=== PATIENT | male | born 1975 | race Caucasian/White ===

== ENCOUNTER 2016-10-05 09:27 | Inpatient (IN) ==
--- NOTE | 2016-10-05 09:35 | Emergency Department Note ---
Disposition Clinical Impression: Sepsis, Diabetic infection of right foot, Hypokalemia, Anemia Disposition: Admitted As Inpatient Referrals: Yesenia Daniel CNP [Primary Care Provider] - Forms: ED Satisfaction Letter General Adult HPI - General Stated complaint: Hyperglycemia Time Seen by Provider: 10/05/16 09:31 - History of Present Illness HPI Narrative: 40-year-old male reports to the emergency department concerned with right foot swelling and redness. He states he is diabetic, type I. He got up this morning he states his blood pressure was 61. Did not feel woozy or dizzy or pass out. The patient denies any chest pain shortness of breath or abdominal pain no vomiting or diarrhea. No back pain urinary problems cough runny nose or pain sore throat or trauma. He has had no trouble moving the arms or legs. The patient reports his right foot is significantly swollen with defects on his second toe. He is status post right great toe amputation a few years ago. There is no history of direct trauma. No rapid bleeding. He does not know exactly when his last tetanus shot was. The patient is concerned about his right foot. He reports significant changes since yesterday. - Related Data Home Medications Medication Instructions Recorded Confirmed Cyclobenzaprine [Flexeril] 10 mg PO TID PRN 10/05/16 10/05/16 Insulin ASPART [NovoLOG] 0 units SQ AD PRN 10/05/16 10/05/16 Insulin Glargine [Lantus] 0 units SQ DAILY PRN 10/05/16 10/05/16 RX: Aspirin 81 mg PO DAILY 10/05/16 10/05/16 Allergies Allergy/AdvReac Type Severity Reaction Status Date / Time No Known Allergies Allergy Verified 10/05/16 10:06 All systems ED: reviewed and negative except as stated. Past Medical History - Past Medical History Medical history: Reports: diabetes, hepatitis Physical Exam - General Limitations: no limitations General appearance: alert, in no apparent distress - Eye Eye exam: Present: other (Chronic right eye defect.). Absent: normal appearance , scleral icterus, conjunctival injection, miosis, mydriasis, periorbital swelling - ENT ENT exam: normal exam, normal oropharynx, mucous membranes moist, TM's normal bilaterally, normal external ear exam - Neck Neck exam: Present: normal inspection, full ROM, trachea midline. Absent: meningismus - Chest Chest inspection: Present: symmetric chest wall rise. Absent: tenderness - Respiratory Respiratory exam: Present: normal lung sounds bilaterally. Absent: respiratory distress, wheezes, stridor, accessory muscle use, prolonged expiratory phase - Cardiovascular Cardiovascular exam: Present: regular rate, normal rhythm, normal heart sounds - Abdominal Exam Abdominal exam: Present: soft, Non-Tender, normal bowel sounds. Absent: tenderness, distention, guarding, rebound, rigidity - Extremities Exam Extremities exam: Present: full ROM, normal capillary refill, other (All 4 extremities are warm and well perfused and supple. The upper extremities and left lower extremity show no acute defects. Right lower extremity so significant edema about the right foot with what appears to be a remote right great toe amputation. The second toe is macerated on the dorsal surface. Erythema pain and swelling are noted. Dorsalis pedis pulses palpable. Good range of motion at the knee and hip on the right. All 4 extremities show no evidence of acute neurovascular or neuromuscular compromise.). Absent: joint swelling, calf tenderness - Back Exam Back exam: Present: full ROM. Absent: tenderness, CVA tenderness (R), CVA tenderness (L), vertebral tenderness - Neurological Exam Neurological exam: Present: alert, oriented X3, CN II-XII intact. Absent: motor sensory deficit - Psychiatric Psychiatric exam: Present: normal affect, normal mood - Skin Skin exam: Present: warm, dry, intact, normal color. Absent: rash, cyanosis, diaphoresis, erythema, pallor, mottled Course Vital Signs Temperature 102.0 F H 10/05/16 09:34 Pulse Rate 108 10/05/16 09:34 Respiratory Rate 16 10/05/16 09:34 Blood Pressure 138/76 10/05/16 09:34 O2 Sat by Pulse Oximetry 97 10/05/16 09:34 Temperature 102.0 F H 10/05/16 09:34 Pulse Rate 82 10/05/16 11:22 Respiratory Rate 16 10/05/16 11:22 Blood Pressure 115/69 10/05/16 11:22 O2 Sat by Pulse Oximetry 98 10/05/16 11:22 Oxygen Delivery Oxygen Delivery Room Air Medical Decision Making - MDM Narrative Medical decision making narrative: The patient has elevated lactate, he is tachycardic and tachypnea, he appears to have diabetic cellulitis the right foot without evidence of osteomyelitis based on plain radiographic studies. He meets sepsis criteria. Vancomycin and Zosyn were ordered. Blood cultures were sent. IV fluid was ordered. The patient was given Percocet and a tetanus booster. Based on the patient's apparent sepsis, I thought it would be appropriate to admit the patient to the hospital, I consulted the hospitalist who is acccepted the patient to their care. The patient is currently stable pending admission. - Lab Data Result diagrams: 10/05/16 10:00 10/05/16 10:00 Lab Results 10/05/16 10/05/16 10/05/16 Range/Units 09:38 10:00 10:00 WBC 11.1 (4.3-11.1) K/mcL RBC 4.00 L (4.19-5.50) M/mcL Hgb 12.2 L (12.9-16.9) g/dL Hct 36.0 L (37.5-50.1) % MCV 90.0 (83.0-100.0) fL MCH 30.5 (28.0-33.3) pg MCHC 33.9 (31.6-35.5) g/dL RDW 12.0 (11.5-14.5) % Plt Count 258 (140-400) K/mcL MPV 9.6 (9.4-12.4) fL Immature Gran % 0.5 (0-4) % Seg Neutrophils % 70.9 % Lymphocytes % 18.9 % Monocytes % 7.7 % Eosinophils % 1.6 % Basophils % 0.4 % Neutrophils # 7.8 (1.6-8.9) K/mcL Lymphocytes # 2.1 (0.6-4.6) K/mcL Monocytes # 0.9 (0.0-1.3) K/mcL Eosinophils # 0.2 (0.0-0.6) K/mcL Basophils # 0.0 (0.0-0.2) K/mcL PT 11.1 (9.4-12.1) Seconds INR 1.0 APTT 28.7 (26.0-36.0) Seconds Sodium (136-145) mEq/L Potassium (3.5-4.5) mEq/L Chloride (98-109) mEq/L Carbon Dioxide (19-29) mEq/L BUN (8-26) mg/dL Creatinine (0.72-1.25) mg/dL Est GFR ( Amer) (> 60) Est GFR (Non-Af Amer) (> 60) BUN/Creatinine Ratio (6-26) Glucose (70-99) mg/dL POC Glucose 161 H (58-89) Calculated Osmolality (280-300) Lactic Acid (0.5-2.2) mmol/L Calcium (8.6-10.8) mg/dL Total Bilirubin (0.2-1.2) mg/dL Direct Bilirubin (0.0-0.5) mg/dL Indirect Bilirubin (0.0-1.2) mg/dL AST (5-34) Units/L ALT (0-55) Units/L Alkaline Phosphatase (38-126) Units/L C-Reactive Protein (Less than 5) mg/L Serum Total Protein (6.0-8.3) g/dL Albumin (3.5-5.0) g/dL Globulin (2.4-3.5) g/dL Albumin/Globulin Ratio (1.1-2.2) Beta-Hydroxybutyric Acd (0.02-0.27) mmol/L 10/05/16 10/05/16 Range/Units 10:00 10:00 WBC (4.3-11.1) K/mcL RBC (4.19-5.50) M/mcL Hgb (12.9-16.9) g/dL Hct (37.5-50.1) % MCV (83.0-100.0) fL MCH (28.0-33.3) pg MCHC (31.6-35.5) g/dL RDW (11.5-14.5) % Plt Count (140-400) K/mcL MPV (9.4-12.4) fL Immature Gran % (0-4) % Seg Neutrophils % % Lymphocytes % % Monocytes % % Eosinophils % % Basophils % % Neutrophils # (1.6-8.9) K/mcL Lymphocytes # (0.6-4.6) K/mcL Monocytes # (0.0-1.3) K/mcL Eosinophils # (0.0-0.6) K/mcL Basophils # (0.0-0.2) K/mcL PT (9.4-12.1) Seconds INR APTT (26.0-36.0) Seconds Sodium 135 L (136-145) mEq/L Potassium 3.3 L (3.5-4.5) mEq/L Chloride 101 (98-109) mEq/L Carbon Dioxide 25 (19-29) mEq/L BUN 8 (8-26) mg/dL Creatinine 0.89 (0.72-1.25) mg/dL Est GFR ( Amer) > 60 (> 60) Est GFR (Non-Af Amer) > 60 (> 60) BUN/Creatinine Ratio 9 (6-26) Glucose 158 H (70-99) mg/dL POC Glucose (58-89) Calculated Osmolality 282 (280-300) Lactic Acid 2.5 H (0.5-2.2) mmol/L Calcium 8.9 (8.6-10.8) mg/dL Total Bilirubin 0.2 (0.2-1.2) mg/dL Direct Bilirubin 0.1 (0.0-0.5) mg/dL Indirect Bilirubin 0.1 (0.0-1.2) mg/dL AST 10 (5-34) Units/L ALT 6 (0-55) Units/L Alkaline Phosphatase 101 (38-126) Units/L C-Reactive Protein 79 H (Less than 5) mg/L Serum Total Protein 7.1 (6.0-8.3) g/dL Albumin 3.0 L (3.5-5.0) g/dL Globulin 4.1 H (2.4-3.5) g/dL Albumin/Globulin Ratio 0.7 L (1.1-2.2) Beta-Hydroxybutyric Acd 0.39 H (0.02-0.27) mmol/L Critical Care Time Critical Care Time: Yes (31 minutes) Attestation: 10 minutes initial evaluation 10 minutes documenting the medical record 5 minutes secondary evaluation and medical decision-making 6 minutes arranging for admission and discussing with the hospitalist.
[2016-10-05] MEDS ORDERED: Vancomycin 1,000 MG in D5% in Water 250 ML IVPB ONE (09:46)
[2016-10-05] MEDS ORDERED: *HR* OxyCODONE/APAP 5/325 TABLET PO ONE (09:46)
[2016-10-05] MEDS ORDERED: 0.9 % Sodium Chloride 1,000 ML IVC ONE ×3 (09:47→11:04)
[2016-10-05] MEDS ORDERED: Piperacillin/Tazobactam 3.375 GM in D5% in Water (Mini-Bag+) 100 ML IVPB ONE (09:47)
[2016-10-05] MEDS ORDERED: Tdap (Boostrix) Vaccine 0.5 ML SYRINGE IM ONE (09:47)
[2016-10-05 10:23] LABS: Basophils % 0.4 %; Eosinophils # 0.2 K/mcL (0.0-0.6); Eosinophils % 1.6 %; Hemoglobin 12.2 g/dL (12.9-16.9); Immature Granulocytes % 0.5 % (0-4); Lymphocytes # 2.1 K/mcL (0.6-4.6); Lymphocytes % 18.9 %; Mean Corpuscular HGB Conc 33.9 g/dL (31.6-35.5); Mean Corpuscular Hemoglobin 30.5 pg (28.0-33.3); Mean Platelet Volume 9.6 fL (9.4-12.4); Monocytes # 0.9 K/mcL (0.0-1.3); Monocytes % 7.7 %; Neutrophils # 7.8 K/mcL (1.6-8.9); Platelet Count 258 K/mcL (140-400); Segmented Neutrophils % 70.9 %
[2016-10-05 10:26] LABS: Prothrombin Time 11.1 Seconds (9.4-12.1)
[2016-10-05 10:29] LABS: Activated Partial Thrombo Time 28.7 Seconds (26.0-36.0)
[2016-10-05 10:31] LABS: Beta-Hydroxybutyric Acid 0.39 mmol/L (0.02-0.27)
[2016-10-05 10:40] LABS: Alanine Aminotransferase 6 Units/L (0-55); Albumin/Globulin Ratio 0.7 (1.1-2.2); Alkaline Phosphatase 101 Units/L (38-126); Aspartate Amino Transferase 10 Units/L (5-34); BUN/Creatinine Ratio 9 (6-26); Bilirubin,Direct 0.1 mg/dL (0.0-0.5); Bilirubin,Indirect 0.1 mg/dL (0.0-1.2); Bilirubin,Total 0.2 mg/dL (0.2-1.2); Blood Urea Nitrogen 8 mg/dL (8-26); C-Reactive Protein 79 mg/L (Less than 5); Calcium 8.9 mg/dL (8.6-10.8); Carbon Dioxide 25 mEq/L (19-29); Chloride 101 mEq/L (98-109); Globulin 4.1 g/dL (2.4-3.5); Glucose 158 mg/dL (70-99); Osmolality,Calculated 282 (280-300); Potassium 3.3 mEq/L (3.5-4.5); Sodium 135 mEq/L (136-145); Total Protein 7.1 g/dL (6.0-8.3); eGFR For African Americans > 60 (> 60); eGFR For Non-African Americans > 60 (> 60)
[2016-10-05] MEDS ORDERED: Naloxone 0.4 MG/ML INJ IVP PRN (12:18)
[2016-10-05] MEDS ORDERED: Ondansetron 4 MG/2 ML VIAL IVP PRN (12:18)
[2016-10-05] MEDS ORDERED: *HR* Dextrose 50 % in Water (Syg) 50 ML SYRINGE IVP PRN (12:25)
[2016-10-05] MEDS ORDERED: Dextrose Gel 15 GM PO PRN ×2 (12:25)
[2016-10-05] MEDS ORDERED: D5% in Water 1,000 ML IVC PRN (12:25)
[2016-10-05] MEDS: Insulin LISPRO 300 UNITS/3 ML VIAL SQ SCH ×3 (13:43→22:33)
--- NOTE | 2016-10-05 13:50 | Internal Med History&Physical ---
Date of Encounter: 10/05/16 Time of Encounter: 12:30 Assessment and Plan (1) Sepsis Current visit: Yes Status: Acute SIRS 2/4 criteria (hr 108, temp 102, lactic acid 2.5). source is second right toe infection with cellulitis. Right foot x ray showed no osteomyelitis, no gas. continue IV vancomycin, IV fluid resuscitation. Consult wound care. Blood cultures taken. Qualifiers: Sepsis type: sepsis due to unspecified organism Qualified Code(s): A41.9 - Sepsis, unspecified organism (2) Cellulitis of right toe Current visit: Yes Status: Acute plan as above. (3) Diabetic infection of right foot Current visit: Yes Status: Acute plan as above. (4) Diabetes mellitus Current visit: Yes Status: Acute iss. diabetic diet. 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 Martinez is a 40 year old male with past medical history of diabetes type I who noticed that his second right toe was red and edematous this morning when he woke up. He states that yesterday night there was no skin changes on his second right toe. He does not remember any recent trauma. He felt chills and warm sensation this morning. In our ED, he was febrile temp 102. received 3L NS , Vancomycin and Zosyn. Past Med Surg Social Fam HX - Past Medical History Medical history: diabetes, hepatitis Psychiatric history: no psych history - Social History Smoking Status: Never smoker Smokeless Tobacco Status: Yes Alcohol use: none Drug use: none - Family History Mother Hx Family Cardiac Disorders: Yes (htn) Internal Medicine - H&P: Meds Aspirin 81 mg PO DAILY 10/05/16 [History] Cyclobenzaprine [Flexeril] 10 mg PO TID PRN 10/05/16 [History] Insulin ASPART [NovoLOG] 0 units SQ AD PRN 10/05/16 [History] Insulin Glargine [Lantus] 0 units SQ DAILY PRN 10/05/16 [History] Allergies No Known Allergies Allergy (Verified 10/05/16 10:06) All Systems PM: A 10-system review of systems was performed and is negative for pertinent findings except as documented above in the HPI. - Constitutional Vitals: Temp Pulse Resp BP Pulse Ox 102.0 F H 82 16 121/69 98 10/05/16 09:34 10/05/16 11:22 10/05/16 12:05 10/05/16 12:05 10/05/16 11:22 General appearance: Present: cooperative, A&O X 3, no acute distress, answers questions appropriately - Eye Eye exam: Present: sclera anicteric Additional comments: right eye blindness. - Neck Neck exam general surgery: Present: supple, trachea midline. Absent: lymphadenopathy - Respiratory Respiratory exam: Present: CTAB - Cardiovascular Cardiovascular exam: Present: RRR - GI/Abdominal GI/Abdominal exam: Present: normal bowel sounds, soft. Absent: distended, tenderness - Extremities Exam Additional comments: right foot: s/p first toe amputation. second toe is swollen, red and there is yellowish purulent discharge with tissue discoloration on the dorsal area. small areas of necrosis. - Back Exam Back exam: Absent: CVA tenderness (L), CVA tenderness (R) - Neurological Exam Neurological exam: Present: alert, oriented X3, no focal deficits, strengths equal and symetr throughout. Absent: facial droop, speech deficit Internal Med - H&P Results - Labs CBC & Chem 7: 10/05/16 10:00 10/05/16 10:00
[2016-10-05] MEDS: 0.9 % Sodium Chloride 1,000 ML IVC SCH ×2 (14:30→22:36)
[2016-10-05] MEDS: *HR* HYDROcodone/Acet 5/325 mg TABLET PO PRN ×2 (14:30→22:28)
[2016-10-05] MEDS ORDERED: Vancomycin 1,250 MG in D5% in Water 250 ML IVPB SCH (15:00)
[2016-10-05 15:58] LABS: Bilirubin,Urine Negative (Negative); Blood,Urine Negative (Negative); Clarity,Urine Clear (Clear); Color,Urine Yellow (Yellow); Glucose,Urine (UA) 250 mg/dL (Normal); Ketones,Urine Negative (Negative); Leukocyte Esterase,Urine Negative (Negative); Nitrite,Urine Negative (Negative); Protein,Urine Negative (Neg-Trace); Specific Gravity,Urine 1.014 (1.010-1.025); Urobilinogen,Urine Normal (Normal)
--- NOTE | 2016-10-05 16:21 | Electrocardiograph Report ---
[facility] Test Date: 2016-10-05 Pat Name: Morgan Martinez Department: 102 Room: [facility] Gender: Meeting Planner: Vl : 1975 Requested By: Renzo Madrid Order Number: [id number] Reading MD: Michael Davalos DO Measurements Intervals [place] Rate: 98 P: 55 MO: 144 QRS: 55 QRSD: 92 T: 49 QT: 327 QTc: 383 Interpretive Statements SINUS RHYTHM WITH OCCASIONAL VENTRICULAR PREMATURE COMPLEXES NONSPECIFIC T-WAVE ABNORMALITY Electronically Signed On 10-05-2016 16:19:34 EDT by Michael Davalos DO
[2016-10-05] MEDS: *HR* Heparin 5,000 UNIT/ML VIAL SQ SCH (16:53)
[2016-10-05] MEDS: Vancomycin 1,250 MG in D5% in Water 250 ML IVPB SCH (22:28)
[2016-10-06] MEDS ORDERED: Insulin DETEMIR 100 UNIT/ML X5UNITS SQ SCH (02:30)
[2016-10-06] MEDS: *HR* Heparin 5,000 UNIT/ML VIAL SQ SCH ×2 (05:53→17:08)
[2016-10-06] MEDS: *HR* HYDROcodone/Acet 5/325 mg TABLET PO PRN (05:53)
[2016-10-06 06:36] LABS: Basophils % 0.3 %; Eosinophils # 0.3 K/mcL (0.0-0.6); Eosinophils % 4.8 %; Hematocrit 34.3 % (37.5-50.1); Hemoglobin 11.4 g/dL (12.9-16.9); Immature Granulocytes % 0.3 % (0-4); Lymphocytes # 1.9 K/mcL (0.6-4.6); Lymphocytes % 26.7 %; Mean Corpuscular HGB Conc 33.2 g/dL (31.6-35.5); Mean Corpuscular Hemoglobin 30.2 pg (28.0-33.3); Mean Corpuscular Volume 90.7 fL (83.0-100.0); Mean Platelet Volume 9.8 fL (9.4-12.4); Monocytes # 0.5 K/mcL (0.0-1.3); Monocytes % 6.4 %; Neutrophils # 4.4 K/mcL (1.6-8.9); Platelet Count 211 K/mcL (140-400); Red Blood Count 3.78 M/mcL (4.19-5.50); Red Cell Distribution Width 12.2 % (11.5-14.5); Segmented Neutrophils % 61.5 %
[2016-10-06 06:47] LABS: Hemoglobin A1C 10.2 %
[2016-10-06 06:51] LABS: BUN/Creatinine Ratio 11 (6-26); Blood Urea Nitrogen 9 mg/dL (8-26); Calcium 8.3 mg/dL (8.6-10.8); Carbon Dioxide 28 mEq/L (19-29); Chloride 104 mEq/L (98-109); Glucose 176 mg/dL (70-99); Magnesium 1.5 mg/dL (1.6-2.6); Osmolality,Calculated 285 (280-300); Sodium 136 mEq/L (136-145); eGFR For African Americans > 60 (> 60); eGFR For Non-African Americans > 60 (> 60)
[2016-10-06] MEDS ORDERED: Magnesium Sulfate 1 GM in D5% in Water 100 ML IVPB ONE (07:39)
[2016-10-06] MEDS: Insulin LISPRO 300 UNITS/3 ML VIAL SQ SCH ×4 (08:41→21:03)
[2016-10-06] MEDS: Pantoprazole 40 MG VIAL IVP SCH (09:22)
[2016-10-06] MEDS: Aspirin 81 MG TAB.CHEW PO SCH (09:22)
[2016-10-06] MEDS: Vancomycin 1,250 MG in D5% in Water 250 ML IVPB SCH ×2 (09:22→21:01)
[2016-10-06] MEDS: Insulin DETEMIR 100 UNIT/ML X5UNITS SQ SCH ×2 (10:00→21:02)
--- NOTE | 2016-10-06 16:51 | Internal Med Progress Note ---
<Leroy Rouse - Last Filed: 10/06/16 16:47> Date of Encounter: 10/06/16 Time of Encounter: 14:30 - Assessment and plan (1) Sepsis Current Visit: Yes Status: Acute Assessment and plan: Patient presented to [facility] with tachycardia, temperature of 102, an elevated lactic acid 2.5. Apparent source of infection in his right second toe. Patient received 3 L IV fluid at presentation as well as vancomycin and Zosyn. X-ray patient but did not show any signs concerning for osteomyelitis or gangrene, no gas is observed. Zosyn had been stopped at this point he is continued on vancomycin. continue IV vancomycin Consult wound care Blood cultures taken Culture of patient toe wound ordered Pain control with [place] Qualifiers: Sepsis type: sepsis due to unspecified organism Qualified Code(s): A41.9 - Sepsis, unspecified organism (2) Diabetic infection of right foot Current Visit: Yes Status: Acute Assessment and plan: Plan as above (3) Cellulitis of right toe Current Visit: Yes Status: Acute Assessment and plan: Plan as above (4) Diabetes mellitus Current Visit: Yes Status: Acute Assessment and plan: Patient hemoglobin A1c of 10.2, this improvement from his prior hemoglobin A1c of reportedly 13. 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 Patient reports having continued pain in his right toe, also reports continued chills with no fever, and last diaphoresis was this morning. He has no nausea/ vomiting, no abdominal pain, no chest pain, shortness of breath. - Constitutional Vitals: Temp Pulse Resp BP Pulse Ox 98.4 F 77 16 134/81 95 10/06/16 15:09 10/06/16 15:09 10/06/16 15:09 10/06/16 15:09 10/06/16 15:09 General appearance: Present: cooperative, A&O X 3, no acute distress, answers questions appropriately Exam: General: Cooperative, pleasant, no acute distress, alert and oriented 3, answers questions appropriately HEENT: Normocephalic, atraumatic, neck supple, trachea midline, Conjunctiva pink , sclera anicteric, oral mucosa moist, no orophargeal erythema or exudates Respiratory: No accessory muscle usage, clear to auscultation bilaterally, no wheezes/rhonchi/rales appreciated Cardiovascular: Regular rate and rhythm, S1 and S2 present, no murmurs/rubs/ gallops/clicks appreciated GI/abdominal: Nondistended, nontender, soft, normal bowel sounds, no peritoneal signs Extremities: No calf tenderness, noncyanotic, no pedal edema appreciated, warm, lower extremity pulses palpable and symmetrical, prior right great toe amputation, right second toe with erythema, purulent yellowish discharge in the dorsal aspect Neurological: Alert and oriented 3, no facial droop, no focal deficits Skin: Dry, intact, normal color Internal Medicine: Result - Labs CBC & Chem 7: 10/06/16 05:32 10/06/16 05:32 Labs: Short CBC 10/06/16 Range/Units 05:32 WBC 7.2 (4.3-11.1) K/mcL Hgb 11.4 L (12.9-16.9) g/dL Hct 34.3 L (37.5-50.1) % Plt Count 211 (140-400) K/mcL Neutrophils # 4.4 (1.6-8.9) K/mcL BMP 10/06/16 05:32 Sodium 136 Potassium 4.0 Chloride 104 Carbon Dioxide 28 BUN 9 Creatinine 0.82 Glucose 176 H Calcium 8.3 L - ABG Interpretation ABG results: PT/INR, D-dimer PT 11.1 Seconds (9.4-12.1) 10/05/16 10:00 Consult Discharge Plan - Plan Referrals: Yesenia Daniel, [employer] DIRECTOR [Primary Care Provider] - <Arabella Perkins - Last Filed: 10/06/16 17:22> Date of Encounter: 10/06/16 - Assessment and plan (1) Sepsis Current Visit: Yes Status: Acute Qualifiers: Sepsis type: sepsis due to unspecified organism Qualified Code(s): A41.9 - Sepsis, unspecified organism (2) Cellulitis of right toe Current Visit: Yes Status: Acute (3) Diabetic infection of right foot Current Visit: Yes Status: Acute (4) Diabetes mellitus Current Visit: Yes Status: Acute Qualifiers: Diabetes mellitus type: type 2 Diabetes mellitus complication status: with hyperglycemia Diabetes mellitus custodial insulin use: with custodial use Qualified Code(s): E11.65 - Type 2 diabetes mellitus with hyperglycemia; Z79.4 - custodial (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 (5) Hypokalemia Current Visit: Yes Status: Acute - Constitutional Vitals: Temp Pulse Resp BP Pulse Ox 98.4 F 77 16 134/81 95 10/06/16 15:09 10/06/16 15:09 10/06/16 15:09 10/06/16 15:10/06/16 15:09 Internal Medicine: Result - Labs CBC & Chem 7: 10/06/16 05:32 10/06/16 05:32 Labs: Short CBC 10/06/16 Range/Units 05:32 WBC 7.2 (4.3-11.1) K/mcL Hgb 11.4 L (12.9-16.9) g/dL Hct 34.3 L (37.5-50.1) % Plt Count 211 (140-400) K/mcL Neutrophils # 4.4 (1.6-8.9) K/mcL BMP 10/06/16 05:32 Sodium 136 Potassium 4.0 Chloride 104 Carbon Dioxide 28 BUN 9 Creatinine 0.82 Glucose 176 H Calcium 8.3 L - ABG Interpretation ABG results: PT/INR, D-dimer PT 11.1 Seconds (9.4-12.1) 10/05/16 10:00 - Attending Attestation I examined this patient and reviewed laboratory, imaging and all diagnostic data. My medical decision-making was reviewed with Dr Leroy Rouse - Resident Physician. I agree with the documented findings, disposition and treatment plan as described above.
[2016-10-06] MEDS: 0.9 % Sodium Chloride 1,000 ML IVC SCH (17:15)
[2016-10-06] MEDS: *HR* OxyCODONE/APAP 5/325 TABLET PO PRN ×2 (18:51→23:33)
[2016-10-07] MEDS: *HR* Heparin 5,000 UNIT/ML VIAL SQ SCH ×2 (05:01→17:58)
[2016-10-07] MEDS: 0.9 % Sodium Chloride 1,000 ML IVC SCH ×2 (05:02→17:57)
[2016-10-07] MEDS: *HR* OxyCODONE/APAP 5/325 TABLET PO PRN ×2 (05:02→11:04)
[2016-10-07 06:27] LABS: Basophils % 0.5 %; Eosinophils # 0.4 K/mcL (0.0-0.6); Eosinophils % 6.1 %; Hematocrit 40.4 % (37.5-50.1); Immature Granulocytes % 0.2 % (0-4); Lymphocytes # 1.8 K/mcL (0.6-4.6); Mean Corpuscular HGB Conc 33.9 g/dL (31.6-35.5); Mean Corpuscular Hemoglobin 30.7 pg (28.0-33.3); Mean Corpuscular Volume 90.6 fL (83.0-100.0); Mean Platelet Volume 9.7 fL (9.4-12.4); Monocytes # 0.5 K/mcL (0.0-1.3); Monocytes % 7.1 %; Neutrophils # 3.6 K/mcL (1.6-8.9); Platelet Count 246 K/mcL (140-400); Red Blood Count 4.46 M/mcL (4.19-5.50); Red Cell Distribution Width 12.1 % (11.5-14.5); Segmented Neutrophils % 57.1 %
[2016-10-07 06:35] LABS: Hemoglobin 13.7 g/dL (12.9-16.9)
[2016-10-07 06:48] LABS: BUN/Creatinine Ratio 11 (6-26); Blood Urea Nitrogen 9 mg/dL (8-26); Calcium 8.7 mg/dL (8.6-10.8); Carbon Dioxide 31 mEq/L (19-29); Chloride 101 mEq/L (98-109); Glucose 249 mg/dL (70-99); Magnesium 1.7 mg/dL (1.6-2.6); Osmolality,Calculated 287 (280-300); Potassium 4.6 mEq/L (3.5-4.5); Sodium 135 mEq/L (136-145); eGFR For African Americans > 60 (> 60); eGFR For Non-African Americans > 60 (> 60)
[2016-10-07] MEDS: Insulin LISPRO 300 UNITS/3 ML VIAL SQ SCH ×4 (08:28→20:45)
[2016-10-07] MEDS: Aspirin 81 MG TAB.CHEW PO SCH (08:29)
[2016-10-07] MEDS: Pantoprazole 40 MG VIAL IVP SCH (08:29)
[2016-10-07] MEDS: Insulin DETEMIR 100 UNIT/ML X5UNITS SQ SCH ×2 (08:32→20:44)
[2016-10-07] MEDS: Vancomycin 1,250 MG in D5% in Water 250 ML IVPB SCH ×2 (08:32→20:44)
--- NOTE | 2016-10-07 11:29 | Internal Med Progress Note ---
<Leroy Rouse - Last Filed: 10/07/16 11:25> Date of Encounter: 10/07/16 Time of Encounter: 09:30 - Assessment and plan (1) Sepsis Current Visit: Yes Status: Acute Assessment and plan: Patient presented to [facility] with tachycardia, temperature of 102, an elevated lactic acid 2.5. Source of infection in his right second toe. Patient received 3 L IV fluid at presentation as well as vancomycin and Zosyn. X-ray patient but did not show any signs concerning for osteomyelitis or gangrene, no gas is observed. Zosyn had been stopped at this point he is continued on vancomycin. continue IV vancomycin Will obtain CT of patient right foot to further evaluate for kang involvement Consult wound care for assistance in proper care of wound Blood cultures so far show NGTD Culture of patient toe wound ordered Pain control with Percocet 7.5/325 Qualifiers: Sepsis type: sepsis due to unspecified organism Qualified Code(s): A41.9 - Sepsis, unspecified organism (2) Diabetic infection of right foot Current Visit: Yes Status: Acute Assessment and plan: Plan as above (3) Cellulitis of right toe Current Visit: Yes Status: Acute Assessment and plan: Plan as above (4) Diabetes mellitus Current Visit: Yes Status: Acute Assessment and plan: Patient hemoglobin A1c of 10.2, this improvement from his prior hemoglobin A1c of reportedly 13. 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 He continues to have pain in his right great toe. He denies fever/chills. He does report some diaphoresis, but had 6 blankets at that time. He denies any nausea/vomiting, abdominal pain, or chest pain. - Constitutional Vitals: Temp Pulse Resp BP Pulse Ox 98.3 F 72 16 111/70 95 10/07/16 10:41 10/07/16 10:41 10/07/16 10:41 10/07/16 10:41 10/07/16 10:41 General appearance: Present: cooperative, A&O X 3, no acute distress, answers questions appropriately Exam: General: Cooperative, pleasant, no acute distress, alert and oriented 3, answers questions appropriately HEENT: Normocephalic, atraumatic, neck supple, trachea midline, Conjunctiva pink , sclera anicteric, oral mucosa moist, no orophargeal erythema or exudates Respiratory: No accessory muscle usage, clear to auscultation bilaterally, no wheezes/rhonchi/rales appreciated Cardiovascular: Regular rate and rhythm, S1 and S2 present, no murmurs/rubs/ gallops/clicks appreciated GI/abdominal: Nondistended, nontender, soft, normal bowel sounds, no peritoneal signs Extremities: No calf tenderness, noncyanotic, no pedal edema appreciated, warm, lower extremity pulses palpable and symmetrical, prior right great toe amputation, right second toe with erythema, purulent yellowish discharge in the dorsal aspect, mild swelling in 2nd great toe, some erythema around toe Neurological: Alert and oriented 3, no facial droop, no focal deficits Skin: Dry, intact, normal color Internal Medicine: Result - Labs CBC & Chem 7: 10/07/16 05:38 10/07/16 05:38 Labs: Short CBC 10/07/16 Range/Units 05:38 WBC 6.4 (4.3-11.1) K/mcL Hgb 13.7 D (12.9-16.9) g/dL Hct 40.4 (37.5-50.1) % Plt Count 246 (140-400) K/mcL Neutrophils # 3.6 (1.6-8.9) K/mcL BMP 10/07/16 05:38 Sodium 135 L Potassium 4.6 H Chloride 101 Carbon Dioxide 31 H BUN 9 Creatinine 0.84 Glucose 249 H Calcium 8.7 - ABG Interpretation ABG results: PT/INR, D-dimer PT 11.1 Seconds (9.4-12.1) 10/05/16 10:00 Consult Discharge Plan - Plan Referrals: Yesenia Daniel, TRAVELING AUDITOR [Primary Care Provider] - <Arabella Perkins - Last Filed: 10/07/16 16:28> Date of Encounter: 10/07/16 - Assessment and plan (1) Sepsis Current Visit: Yes Status: Acute Qualifiers: Sepsis type: sepsis due to unspecified organism Qualified Code(s): A41.9 - Sepsis, unspecified organism (2) Cellulitis of right toe Current Visit: Yes Status: Acute (3) Diabetic infection of right foot Current Visit: Yes Status: Acute (4) Diabetes mellitus Current Visit: Yes Status: Acute Qualifiers: Diabetes mellitus type: type 2 Diabetes mellitus complication status: with hyperglycemia Diabetes mellitus long-term insulin use: with long-term use Qualified Code(s): E11.65 - Type 2 diabetes mellitus with hyperglycemia; Z79.4 - retirement (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 (5) Hypokalemia Current Visit: Yes Status: Acute - Constitutional Vitals: Temp Pulse Resp BP Pulse Ox 98.0 F 62 16 142/78 97 10/07/16 15:54 10/07/16 15:54 10/07/16 15:54 10/07/16 15:54 10/07/16 15:54 Internal Medicine: Result - Labs CBC & Chem 7: 10/07/16 05:38 10/07/16 05:38 Labs: Short CBC 10/07/16 Range/Units 05:38 WBC 6.4 (4.3-11.1) K/mcL Hgb 13.7 D (12.9-16.9) g/dL Hct 40.4 (37.5-50.1) % Plt Count 246 (140-400) K/mcL Neutrophils # 3.6 (1.6-8.9) K/mcL BMP 10/07/16 05:38 Sodium 135 L Potassium 4.6 H Chloride 101 Carbon Dioxide 31 H BUN 9 Creatinine 0.84 Glucose 249 H Calcium 8.7 - ABG Interpretation ABG results: PT/INR, D-dimer PT 11.1 Seconds (9.4-12.1) 10/05/16 10:00 - Impressions Impressions Foot CT 10/07/16 12:30 IMPRESSION: 1. Diffuse soft tissue swelling of the foot with extension to involve the 2nd toe. Soft tissue swelling is most pronounced dorsally. No organized drainable fluid collection is identified. 2. Subtle cortical irregularity of the distal phalanx of the 2nd toe with a small ossific fragment seen along the medial aspect of the distal interphalangeal joint. Findings suspicious for osteomyelitis of the distal phalanx of the 2nd toe given adjacent soft tissue swelling/cellulitis. MRI of the forefoot could be obtained for further evaluation as clinically indicated. D/ / Morgan Peña MD / Morgan Peña MD Interpreting Provider: Morgan Peña MD - Attending Attestation I examined this patient and reviewed laboratory, imaging and all diagnostic data. My medical decision-making was reviewed with Dr Leroy Rouse - Resident Physician. I agree with the documented findings, disposition and treatment plan as described above.
[2016-10-07] MEDS ORDERED: Silvasorb 44.4 ML TUBE TP SCH (13:00)
[2016-10-07] MEDS: *HR* OxyCODONE/APAP 7.5/325 TABLET PO PRN ×2 (15:55→20:44)
--- NOTE | 2016-10-07 16:38 | Podiatry Consult Note ---
Date of Encounter: 10/07/16 Time of Encounter: 16:10 Assessment and Plan (1) Diabetes mellitus with neuropathy Current visit: Yes Status: Acute Qualifiers: Diabetes mellitus type: type 1 Qualified Code(s): E10.40 - Type 1 diabetes mellitus with diabetic neuropathy, unspecified (2) Diabetic infection of right foot Current visit: Yes Status: Acute Cellulitis to toe #2 of the right foot secondary to Full-thickness ulceration to toe #2 to the right foot with a positive probe to bone. CT scan of the right foot suspicious for osteomyelitis of the distal phalanx of the 2nd toe given adjacent soft tissue swelling/cellulitis. Dr. Simons to take patient to surgery tomorrow (10/08/16) for a amputation of toe #2 of the right foot. NPO after midnight. Continue wound care as ordered. WBC: 6.4, CRP: 79, will order an ESR. Agree with present antibiotic therapy. (3) Cellulitis of right toe Current visit: Yes Status: Acute History of Present Illness HPI: Mr. Martinez is a 40 year old male admitted to [place] for right second toe redness and swelling. Patient states 2 days ago he woke up and toe #2 of the right foot was red and swollen. No known injury or trauma. Patient does have a medical history significant for diabetes type 1. Patient does have a surgical history of a right great toe amputation by Dr. Simons in February 2012. Patient was last seen by Dr. Simons in 2012 and has not been seen by a soil checker since. Patient states he does not have diabetic shoes. Patient states he is currently on disability and does not work. Patient states he has had intermittent fever and chills over the past few days. Patient states right foot, toe #2 is painful and rates it at a "20" out of 10. Upon arrival to the ED patient had temperature of 102. Patient states his feet are numb. Patients most hemoglobin A1C was 10.2. Past Med Surg Social Fam HX - Past Medical History Medical history: diabetes, hepatitis Psychiatric history: no psych history - Social History Smoking Status: Never smoker Smokeless Tobacco Status: Yes Alcohol use: none Drug use: none - Family History Mother Hx Family Cardiac Disorders: Yes (htn) Medications and Allergies Aspirin 81 mg PO DAILY 10/05/16 [History] Cyclobenzaprine [Flexeril] 10 mg PO TID PRN 10/05/16 [History] Insulin ASPART [NovoLOG] 0 units SQ AD PRN 10/05/16 [History] Insulin Glargine [Lantus] 0 units SQ DAILY PRN 10/05/16 [History] Allergies No Known Allergies Allergy (Verified 10/05/16 10:06) All Systems Reviewed: A 10-system review of systems was performed and is negative for pertinent findings except as documented above in the HPI. Physical Exam - Constitutional Vitals: Temp Pulse Resp BP Pulse Ox 98.0 F 62 16 142/78 97 10/07/16 15:54 10/07/16 15:54 10/07/16 15:54 10/07/16 15:54 10/07/16 15:54 Exam: General appearance: alert awake oriented X 3. Calm and pleasant, no acute distress.. Vascular: Pedal pulses +2/4 DP/PT , No evidence of cyanosis, pallor or rubor, Edema graded at 1+/4, Skin Temperature warm, No calf pain with manual compression. capillary refill time is immediate to digits. Neurologic: Absent epicritic sensation to both feet as evidenced by the SWM F 5.07. Wound: Toe #2 of the right foot is globally edematous and erythematous with an full-thickness open ulceration to the dorsum of the IP joint with a positive probe to bone. Scant amount of bloody drainage with yellow slough. Ulceration measures 1.3 cm in diameter. Results - Labs Result Diagrams: 10/07/16 05:38 10/07/16 05:38 Labs: Abnormal lab results Sodium 135 mEq/L (136-145) L 10/07/16 05:38 Potassium 4.6 mEq/L (3.5-4.5) H 10/07/16 05:38 Carbon Dioxide 31 mEq/L (19-29) H 10/07/16 05:38 Glucose 249 mg/dL (70-99) H 10/07/16 05:38 POC Glucose 197 (58-89) H 10/07/16 10:44 Hemoglobin A1c 10.2 % (-5.6) H 10/06/16 05:32 C-Reactive Protein 79 mg/L (Less than 5) H 10/05/16 10:00 Albumin 3.0 g/dL (3.5-5.0) L 10/05/16 10:00 Globulin 4.1 g/dL (2.4-3.5) H 10/05/16 10:00 Albumin/Globulin Ratio 0.7 (1.1-2.2) L 10/05/16 10:00 Beta-Hydroxybutyric Acd 0.39 mmol/L (0.02-0.27) H 10/05/16 10:00 Urine Glucose (UA) 250 mg/dL (Normal) H 10/05/16 15:50 H & H 10/07/16 Range/Units 05:38 Hgb 13.7 D (12.9-16.9) g/dL Hct 40.4 (37.5-50.1) % All other labs normal. Consult Discharge Plan - Plan Referrals: Yesenia Daniel, CINDY [Primary Care Provider] -
[2016-10-07 18:33] LABS: Acinetobacter baumannii by PCR Not Detected (Not Detect); Candida albicans by PCR Not Detected (Not Detect); Candida glabrata by PCR Not Detected (Not Detect); Candida krusei by PCR Not Detected (Not Detect); Candida parapsilosis by PCR Not Detected (Not Detect); Candida tropicalis by PCR Not Detected (Not Detect); Enterococcus by PCR Not Detected (Not Detect); Escherichia coli by PCR Not Detected (Not Detect); Klebsiella oxytoca by PCR Not Detected (Not Detect); Klebsiella pneumoniae by PCR Not Detected (Not Detect); Pseudomonas aeruginosa by PCR Not Detected (Not Detect); Serratia marcescens by PCR Not Detected (Not Detect); Staphylococcus aureus by PCR Not Detected (Not Detect); Streptococcus agalactiae(B)PCR Not Detected (Not Detect); Streptococcus by PCR Not Detected (Not Detect); Streptococcus pneumoniae PCR Not Detected (Not Detect); Streptococcus pyogenes (A) PCR Not Detected (Not Detect); blaKPC Carbapenem-Resist Gene Not Detected (Not Detect); mecA Methicillin-Resist Gene Not Detected (Not Detect); vanA/B Vancomycin-Resist Genes Not Detected (Not Detect)
[2016-10-08] MEDS: *HR* OxyCODONE/APAP 7.5/325 TABLET PO PRN ×4 (01:36→22:26)
[2016-10-08 05:35] LABS: Basophils % 0.6 %; Eosinophils # 0.3 K/mcL (0.0-0.6); Eosinophils % 5.4 %; Immature Granulocytes % 0.2 % (0-4); Lymphocytes # 1.7 K/mcL (0.6-4.6); Mean Corpuscular HGB Conc 33.6 g/dL (31.6-35.5); Mean Corpuscular Hemoglobin 30.3 pg (28.0-33.3); Mean Corpuscular Volume 90.2 fL (83.0-100.0); Mean Platelet Volume 9.6 fL (9.4-12.4); Monocytes # 0.4 K/mcL (0.0-1.3); Monocytes % 7.3 %; Platelet Count 253 K/mcL (140-400); Red Blood Count 3.99 M/mcL (4.19-5.50); Red Cell Distribution Width 11.9 % (11.5-14.5); Segmented Neutrophils % 55.5 %
[2016-10-08 05:39] LABS: Hemoglobin 12.1 g/dL (12.9-16.9)
[2016-10-08] MEDS: 0.9 % Sodium Chloride 1,000 ML IVC SCH ×2 (05:46→16:42)
[2016-10-08] MEDS: *HR* Heparin 5,000 UNIT/ML VIAL SQ SCH ×2 (05:47→16:39)
[2016-10-08 05:53] LABS: BUN/Creatinine Ratio 14 (6-26); Blood Urea Nitrogen 12 mg/dL (8-26); Calcium 8.4 mg/dL (8.6-10.8); Carbon Dioxide 30 mEq/L (19-29); Chloride 101 mEq/L (98-109); Glucose 242 mg/dL (70-99); Osmolality,Calculated 288 (280-300); Potassium 4.5 mEq/L (3.5-4.5); Sodium 135 mEq/L (136-145); eGFR For African Americans > 60 (> 60); eGFR For Non-African Americans > 60 (> 60)
[2016-10-08] MEDS: Insulin LISPRO 300 UNITS/3 ML VIAL SQ SCH ×4 (08:24→22:26)
[2016-10-08] MEDS: Insulin DETEMIR 100 UNIT/ML X5UNITS SQ SCH ×2 (08:29→22:25)
[2016-10-08] MEDS: Pantoprazole 40 MG VIAL IVP SCH (08:29)
[2016-10-08] MEDS: Aspirin 81 MG TAB.CHEW PO SCH (08:29)
[2016-10-08] MEDS: Vancomycin 1,250 MG in D5% in Water 250 ML IVPB SCH ×2 (08:30→22:24)
--- NOTE | 2016-10-08 09:46 | Anesthesia Evaluation PreOp ---
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: Other (Diabetic Neuropathy, Legally blind Left eye, Blinf right eye ) Other Medical History: Hepatic, Diabetes Type I Alcohol Use: none Drug use: none Medications and Allergies Aspirin 81 mg PO DAILY 10/05/16 [History] Cyclobenzaprine [Flexeril] 10 mg PO TID PRN 10/05/16 [History] Insulin ASPART [NovoLOG] 0 units SQ AD PRN 10/05/16 [History] Insulin Glargine [Lantus] 0 units SQ DAILY PRN 10/05/16 [History] Allergies No Known Allergies Allergy (Verified 10/05/16 10:06) - Meds/Allergy Pre-op Review Medications Reviewed: Yes Allergies Reviewed: Yes Beta Blockers on Current Med List: No Anesthesia Results - Labs 10/08/16 04:55 10/08/16 04:55 - Imaging EKG: image reviewed (SR with PVC's) Anesthesia Exam O2 Sat Weight 78.2 kg O2 Sat by Pulse Oximetry 96 O2 Sat by Pulse Oximetry 94 O2 Sat by Pulse Oximetry 94 O2 Sat by Pulse Oximetry 96 O2 Sat by Pulse Oximetry 97 O2 Sat by Pulse Oximetry 95 Vital Signs Temp Pulse Resp BP Pulse Ox 102.0 F H 108 16 138/76 97 10/05/16 09:34 10/05/16 09:34 10/05/16 09:34 10/05/16 09:34 10/05/16 09:34 Vital Signs/O2 Sat, Most Current Temp Pulse Resp BP Pulse Ox 98.1 F 71 18 138/78 96 10/08/16 07:08 10/08/16 07:08 10/08/16 07:08 10/08/16 07:08 10/08/16 07:08 Height: 6' Weight: 175# NPO (# of Hours): > 8 hrs Pain Scale: 0 Pain Scale Used: Numeric (1 - 10) - HEENT Pupil (Motor): Pupils equal, EOMI Mallampati: III Teeth: Normal Oral Opening: Greater than 3 - SILK SCREEN FRAME ASSEMBLER LOC: Oriented SILK SCREEN FRAME ASSEMBLER Motor: Normal RUE, Normal LUE, Normal RLE, Normal LLE, Normal Face SILK SCREEN FRAME ASSEMBLER Sensory: Normal: RUE, LUE, RLE, LLE, Face - Cardiac Rhythm: Regular Murmur: None JVD: No Carotid Bruit: No - Pulmonary Breath Sounds: bilateral Clear Respiratory Effort: Symmetrical Anesthesia Assess/Plan ASA Score: 3 Modified Tung Scale for Level of Consciousness: Cooperative, oriented, and tranquil Anesthetic Plan: MAC Autologous Blood: Yes Monitoring Plan: Standard Monitors Recovery Plan: PACU
[2016-10-08] MEDS ORDERED: *HR* Midazolam HCl 5 MG/5 ML VIAL IVP ONE (10:19)
[2016-10-08] MEDS ORDERED: *HR* FentaNYL (PF) 100 MCG/2 ML VIAL ONE (10:19)
--- NOTE | 2016-10-08 11:03 | Orthopedic Operative Note ---
Date of procedure: 10/08/16 Pre-op diagnosis: Necrotic toe with osteomyelitis #2 right foot Post-op diagnosis: same Procedure: 10/08/16 10:59 #1 amputation toe #2 with the level of the metatarsophalangeal joint right foot Implants: None Complications: None Anesthesia: MAC, local Local Anesthetics: 0.25% Sensorcaine HCL SubQ (cc) Surgeon: Chetan Simons Estimated blood loss (cc): 5 Tourniquet Time (Minutes): 0 Specimen: Toe #2 right foot with cultures of toe Condition: stable Disposition: floor Procedure in Detail: 10/08/16 11:00 Detail summary of procedure: The patient was brought to the surgical suite. A sign in procedure was performed. The patient was then transferred to the surgical table and positioned properly safely securely elevating the right foot on a foam block. Anesthetic timeout was taken. The right ankle was then prepped with alcohol 3 times in a modified ankle block was carried out without difficulty or complication. No tourniquet was used. The right foot was then prepped and draped in usual sterile manner. Surgical timeout was taken. A standard racquet incision was drawn with a skin scribe beginning of the dorsal aspect of the second MTPJ and brought distally and then medially and laterally and a racquet type configuration meeting at the sulcus of the second toe plantarly. Satisfied we had adequate soft tissue coverage to bring together medial and lateral flaps the incision was then made directly down to bone beginning with a #15 scalpel blade of the dorsal aspect of the second metatarsal. It was brought distally and then medially and then laterally meeting in the sulcus of the second toe. The extensor flexor tendons were divided. With a gentle retraction at the level of the periosteum dissection was carried proximally the level of the MTPJ with the dorsal medial lateral collateral ligament divided cleanly as well as the plantar plate. The toe was then disarticulated and extirpated without difficulty or complication. Remaining tissue was of normal color texture density in character. There is no clinical evidence of infection of the second metatarsal head or the soft tissue surrounding the open wound. The wound was flushed with copious amounts sterile saline finding no bone chips or debris or any further evidence of infection or necrosis the wound was closed in layers using 3-0 Vicryl and 3-0 Prolene for skin closure. Wound was sprayed with PRP prior to closure. Closure was uneventful without tension. The wound was dressed with Adaptic 4 x 4's and a mild compressive dressing with Kerlix. Patient tolerated the procedure well and was sent to holding room in good condition with vital signs stable estimate blood loss less than 5 mL complications encountered none. Specimen toe #2 right foot cultures of open wound of toe #2 right foot. We noted that the joint was exposed over the PIPJ with a phlegmon on the distal medial aspect of the toe. Patient exhibited compromise joint with necrosis of the soft tissue 10/08/16 11:03 .
[2016-10-08] MEDS ORDERED: D5% in Water 1,000 ML IVC PRN (11:05)
[2016-10-08] MEDS ORDERED: Naloxone 0.4 MG/ML INJ IVP PRN (11:05)
[2016-10-08] MEDS ORDERED: *HR* Dextrose 50 % in Water (Syg) 50 ML SYRINGE IVP PRN (11:05)
[2016-10-08] MEDS ORDERED: Ondansetron 4 MG/2 ML VIAL IVP PRN (11:05)
[2016-10-08] MEDS ORDERED: Dextrose Gel 15 GM PO PRN ×2 (11:05)
--- NOTE | 2016-10-08 11:33 | Internal Med Progress Note ---
<Leroy Rouse - Last Filed: 10/08/16 14:33> Date of Encounter: 10/08/16 Time of Encounter: 13:30 - Assessment and plan (1) Sepsis Current Visit: Yes Status: Acute Assessment and plan: Patient presented to [facility] with tachycardia, temperature of 102, an elevated lactic acid 2.5. Source of infection in his right second toe. Patient received 3 L IV fluid at presentation as well as vancomycin and Zosyn. CT scan performed on 10/07/16 showed signs concerning for osteomyelitis, podiatry was consulted and patient will undergo amputation of second toe today. Wound cultures were finalized from patient toe which did show pansensitive Klebsiella and Streptococcus agalactiae. Plan for amputation of right 2nd toe on right foot We will stop vancomycin Consult wound care for assistance in proper care of wound Blood cultures so far show NGTD We will start IV ceftriaxone Pain control with Percocet 7.5/325 Qualifiers: Sepsis type: sepsis due to unspecified organism Qualified Code(s): A41.9 - Sepsis, unspecified organism (2) Osteomyelitis of toe of right foot Current Visit: Yes Status: Acute Assessment and plan: plan as above (3) Diabetic infection of right foot Current Visit: Yes Status: Acute Assessment and plan: Amputation planned for today with Dr. Simons. Plan as above (4) Cellulitis of right toe Current Visit: Yes Status: Acute Assessment and plan: Plan as above (5) Diabetes mellitus Current Visit: Yes Status: Acute Assessment and plan: Patient hemoglobin A1c of 10.2, this improvement from his prior hemoglobin A1c of reportedly 13. We will place on low-dose insulin sliding scale subcutaneous 10 units Levemir subcutaneous twice a day Diabetic diet Qualifiers: Diabetes mellitus type: type 2 Diabetes mellitus complication status: with hyperglycemia Diabetes mellitus fci insulin use: with fci use Qualified Code(s): E11.65 - Type 2 diabetes mellitus with hyperglycemia; Z79.4 - shelter (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 (6) DVT prophylaxis Current Visit: Yes Status: Acute Assessment and plan: 5000 units heparin subcutaneous twice a day - Subjective Interval history: Patient somewhat somnolent from procedure earlier today, but wakes easily to verbal stimuli. He reports continued discomfort in his right foot, but otherwise has no concerns/complaints today. - Constitutional Vitals: Temp Pulse Resp BP Pulse Ox 97.7 F 71 15 122/72 95 06/15/17 11:13 10/08/16 11:13 10/08/16 11:13 10/08/16 11:13 10/08/16 11:13 General appearance: Present: cooperative, A&O X 3, no acute distress, answers questions appropriately Exam: General: Cooperative, pleasant, no acute distress, alert and oriented 3, answers questions appropriately HEENT: Normocephalic, atraumatic, neck supple, trachea midline, right eye pale, blind in right eye Respiratory: No accessory muscle usage, clear to auscultation bilaterally, no wheezes/rhonchi/rales appreciated Cardiovascular: Regular rate and rhythm, S1 and S2 present, no murmurs/rubs/ gallops/clicks appreciated GI/abdominal: Nondistended, nontender, soft, normal bowel sounds, no peritoneal signs Extremities: No calf tenderness, noncyanotic, no pedal edema appreciated, warm, lower extremity pulses palpable and symmetrical, prior right great toe amputation, dressing in place on right foot following amputation of right second toe earlier today Neurological: Alert and oriented 3, no facial droop, no focal deficits Skin: Dry, intact, normal color Internal Medicine: Result - Labs CBC & Chem 7: 10/08/16 04:55 10/08/16 04:55 Labs: Short CBC 10/08/16 Range/Units 04:55 WBC 5.4 (4.3-11.1) K/mcL Hgb 12.1 L D (12.9-16.9) g/dL Hct 36.0 L (37.5-50.1) % Plt Count 253 (140-400) K/mcL Neutrophils # 3.0 (1.6-8.9) K/mcL BMP 10/08/16 04:55 Sodium 135 L Potassium 4.5 Chloride 101 Carbon Dioxide 30 H BUN 12 Creatinine 0.86 Glucose 242 H Calcium 8.4 L - ABG Interpretation ABG results: PT/INR, D-dimer PT 11.1 Seconds (9.4-12.1) 10/05/16 10:00 - Impressions Impressions Foot CT 10/07/16 12:30 IMPRESSION: 1. Diffuse soft tissue swelling of the foot with extension to involve the 2nd toe. Soft tissue swelling is most pronounced dorsally. No organized drainable fluid collection is identified. 2. Subtle cortical irregularity of the distal phalanx of the 2nd toe with a small ossific fragment seen along the medial aspect of the distal interphalangeal joint. Findings suspicious for osteomyelitis of the distal phalanx of the 2nd toe given adjacent soft tissue swelling/cellulitis. MRI of the forefoot could be obtained for further evaluation as clinically indicated. D/ / Morgan Peña MD / Morgan Peña MD Interpreting Provider: Morgan Peña MD - VTE Documentation of Mechanical Device: Intermittent pneumatic compression device Consult Discharge Plan - Plan Referrals: Yesenia Daniel, CAREER TECHNICAL COUNSELOR [Primary Care Provider] - <Arabella Perkins - Last Filed: 10/08/16 15:43> Date of Encounter: 10/08/16 - Assessment and plan (1) Sepsis Current Visit: Yes Status: Acute Qualifiers: Sepsis type: sepsis due to unspecified organism Qualified Code(s): A41.9 - Sepsis, unspecified organism (2) Cellulitis of right toe Current Visit: Yes Status: Acute (3) Diabetic infection of right foot Current Visit: Yes Status: Acute (4) Diabetes mellitus Current Visit: Yes Status: Acute Qualifiers: Diabetes mellitus type: type 2 Diabetes mellitus complication status: with hyperglycemia 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 insulin use: with lumber chain offbearer use Qualified Code(s): E11.65 - Type 2 diabetes mellitus with hyperglycemia; Z79.4 - block trader (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 (5) Hypokalemia Current Visit: Yes Status: Acute - Constitutional Vitals: Temp Pulse Resp BP Pulse Ox 97.7 F 71 15 122/72 95 10/08/16 11:13 10/08/16 11:13 10/08/16 11:13 10/08/16 11:13 10/08/16 11:13 Internal Medicine: Result - Labs CBC & Chem 7: 10/08/16 04:55 10/08/16 04:55 Labs: Short CBC 10/08/16 Range/Units 04:55 WBC 5.4 (4.3-11.1) K/mcL Hgb 12.1 L D (12.9-16.9) g/dL Hct 36.0 L (37.5-50.1) % Plt Count 253 (140-400) K/mcL Neutrophils # 3.0 (1.6-8.9) K/mcL BMP 10/08/16 04:55 Sodium 135 L Potassium 4.5 Chloride 101 Carbon Dioxide 30 H BUN 12 Creatinine 0.86 Glucose 242 H Calcium 8.4 L - ABG Interpretation ABG results: PT/INR, D-dimer PT 11.1 Seconds (9.4-12.1) 10/05/16 10:00 - Attending Attestation I examined this patient and reviewed laboratory, imaging and all diagnostic data. My medical decision-making was reviewed with Dr Terrance Rosenthal - Resident Physician. I agree with the documented findings, disposition and treatment plan as described above with the following additions. Correction to diagnosis: Diabetes type 1.
[2016-10-09] MEDS: 0.9 % Sodium Chloride 1,000 ML IVC SCH (02:14)
[2016-10-09] MEDS: *HR* Heparin 5,000 UNIT/ML VIAL SQ SCH ×2 (05:33→16:52)
[2016-10-09 05:57] LABS: Basophils % 0.4 %; Eosinophils # 0.3 K/mcL (0.0-0.6); Eosinophils % 5.3 %; Hematocrit 36.4 % (37.5-50.1); Hemoglobin 12.4 g/dL (12.9-16.9); Immature Granulocytes % 0.4 % (0-4); Lymphocytes # 1.6 K/mcL (0.6-4.6); Lymphocytes % 29.5 %; Mean Corpuscular HGB Conc 34.1 g/dL (31.6-35.5); Mean Corpuscular Hemoglobin 30.6 pg (28.0-33.3); Mean Corpuscular Volume 89.9 fL (83.0-100.0); Mean Platelet Volume 9.3 fL (9.4-12.4); Monocytes # 0.3 K/mcL (0.0-1.3); Monocytes % 6.2 %; Neutrophils # 3.2 K/mcL (1.6-8.9); Platelet Count 283 K/mcL (140-400); Red Blood Count 4.05 M/mcL (4.19-5.50); Red Cell Distribution Width 12.1 % (11.5-14.5); Segmented Neutrophils % 58.2 %
[2016-10-09 06:01] LABS: BUN/Creatinine Ratio 14 (6-26); Blood Urea Nitrogen 12 mg/dL (8-26); Calcium 8.7 mg/dL (8.6-10.8); Carbon Dioxide 31 mEq/L (19-29); Chloride 100 mEq/L (98-109); Glucose 302 mg/dL (70-99); Osmolality,Calculated 291 (280-300); Potassium 4.7 mEq/L (3.5-4.5); Sodium 135 mEq/L (136-145); eGFR For African Americans > 60 (> 60); eGFR For Non-African Americans > 60 (> 60)
[2016-10-09] MEDS: Vancomycin 1,250 MG in D5% in Water 250 ML IVPB SCH ×2 (08:30→20:56)
[2016-10-09] MEDS: Insulin DETEMIR 100 UNIT/ML X5UNITS SQ SCH ×2 (08:30→20:57)
[2016-10-09] MEDS: Pantoprazole 40 MG VIAL IVP SCH (08:30)
[2016-10-09] MEDS: Aspirin 81 MG TAB.CHEW PO SCH (08:30)
[2016-10-09] MEDS: *HR* OxyCODONE/APAP 7.5/325 TABLET PO PRN ×2 (08:34→16:52)
[2016-10-09] MEDS: Insulin LISPRO 300 UNITS/3 ML VIAL SQ SCH ×4 (08:36→20:51)
[2016-10-09] MEDS ORDERED: Silvasorb 44.4 ML TUBE TP SCH (09:00)
--- NOTE | 2016-10-09 13:04 | Podiatry Progress Note ---
Date of Encounter: 10/09/16 Time of Encounter: 12:00 - Assessment and Plan (1) Diabetes mellitus with neuropathy Current Visit: Yes Status: Acute Qualifiers: Diabetes mellitus type: type 1 Qualified Code(s): E10.40 - Type 1 diabetes mellitus with diabetic neuropathy, unspecified (2) Diabetic infection of right foot Current Visit: Yes Status: Acute S/p amputation of toe #2 of the right foot by Dr. Simons on 10/08/16 for osteomyelitis. All infected bone and devitalized tissue was removed in surgery, no clinical evidence of bacterial infection to remaining bone and tissue. Dressing changed at bedside, incision line well approximated, light periwound erythema, no streaking, no pus, no odor. Site irrigated with saline, pat dry, betadine applied with adaptic, 4x4 gauze and kerlix. Dressing can be changed daily while admitted. Leave dressing in place after discharge until f/u appointment with Dr. Simons. WBC: 5.5 and a febrile. Wound cultures isolated Klebsiella pneumoniae and strep agalactiae (Group B), receiving Rocephin currently. Blood cultures 1/2 with GPC. Patient will need a short cam boot to the right foot and remain protective weight bearing. F/u in Podiatry clinic with Dr. Simons with in one week of discharge from hospital. (3) Cellulitis of right toe Current Visit: Yes Status: Acute Subjective Interval history: Patient is s/p amputation of toe #[address] Simons on 10/08/16. Dressing is intact to right foot with scant amount of serosanguineous drainage. Patient states right foot is painful but improved since surgery. No c/o fever or chills overnight. Objective - Vital Signs Vital Signs: Vital Signs Temp Pulse Resp BP Pulse Ox 10/09/16 10:23 98.4 F 73 16 124/83 95 10/09/16 06:44 98.2 F 68 16 128/79 96 10/09/16 04:26 98.4 F 73 14 130/74 95 10/08/16 23:07 98.3 F 65 15 155/74 97 10/08/16 19:59 98.2 F 70 18 105/67 96 10/08/16 16:14 98.1 F 65 15 125/73 94 Intake and Output 10/08/16 10/09/16 10/09/16 23:59 07:59 15:59 Intake Total 250 / 250 1000 / 1000 250 / 250 Output Total 1050 / 1050 Balance -800 / -800 1000 / 1000 250 / 250 Intake: IV Fluids 250 / 250 1000 / 1000 250 / 250 0.9 % Sodium Chloride 1, 1000 / 1000 000 ML @ 100 mls/hr IVC . Q10H THUY Rx#:[id number] Vancocin 1,250 MG In 250 / 250 250 / 250 Dextrose 5% 250 ML @ 166. 67 mls/hr IVPB Q12H THUY Rx#:[id number] Output: Urine 1050 / 1050 Other: Weight 80.9 kg Blood Glucose* 206 172 195 - Exam Exam: General appearance: alert awake oriented X 3. Calm and pleasant, no acute distress.. Vascular: Pedal pulses +2/4 DP/PT , No evidence of cyanosis, pallor or rubor, Edema graded at 1+/4, Skin Temperature warm, No calf pain with manual compression. capillary refill time is immediate to digits. Postop Exam: S/P Sutures intact to incision line, no signs of dehiscence. Light periwound erythema, No open area, no drainage, no odor, no streaking. Minimal edema. - Lab Result Diagrams: 10/09/16 05:39 10/09/16 05:39 Labs: Abnormal lab results RBC 4.05 M/mcL (4.19-5.50) L 10/09/16 05:39 Hgb 12.4 g/dL (12.9-16.9) L 10/09/16 05:39 Hct 36.4 % (37.5-50.1) L 10/09/16 05:39 MPV 9.3 fL (9.4-12.4) L 10/09/16 05:39 ESR 69 mm/hr (0-10) H 10/07/16 05:38 Sodium 135 mEq/L (136-145) L 10/09/16 05:39 Potassium 4.7 mEq/L (3.5-4.5) H 10/09/16 05:39 Carbon Dioxide 31 mEq/L (19-29) H 10/09/16 05:39 Glucose 302 mg/dL (70-99) H 10/09/16 05:39 POC Glucose 172 (58-89) H 10/09/16 08:21 Hemoglobin A1c 10.2 % (-5.6) H 10/06/16 05:32 C-Reactive Protein 79 mg/L (Less than 5) H 10/05/16 10:00 Albumin 3.0 g/dL (3.5-5.0) L 10/05/16 10:00 Globulin 4.1 g/dL (2.4-3.5) H 10/05/16 10:00 Albumin/Globulin Ratio 0.7 (1.1-2.2) L 10/05/16 10:00 Beta-Hydroxybutyric Acd 0.39 mmol/L (0.02-0.27) H 10/05/16 10:00 Urine Glucose (UA) 250 mg/dL (Normal) H 10/05/16 15:50 Microbiology, Last 48 Hours 10/08/16 10:40 Wound Culture - Preliminary Right Foot Gram Negative Renato Gram Negative Renato#2 - VTE Documentation of Mechanical Device: Intermittent pneumatic compression device Consult Discharge Plan - Plan Referrals: Yesenia Daniel, CLOTH MENDER [Primary Care Provider] -
--- NOTE | 2016-10-09 13:42 | Internal Med Progress Note ---
Addendum entered and electronically signed by Leroy Rouse DO 10/09/16 13:46 : Under assessment and plan for sepsis: Will obtain additional blood cultures Original Note: <Leroy Rouse - Last Filed: 10/09/16 13:33> Date of Encounter: 10/09/16 Time of Encounter: 09:30 - Assessment and plan (1) Sepsis Current Visit: Yes Status: Acute Assessment and plan: Patient presented to [facility] with tachycardia, temperature of 102, an elevated lactic acid 2.5. Source of infection in his right second toe. Patient received 3 L IV fluid at presentation as well as vancomycin and Zosyn. CT scan performed on 10/07/16 showed signs concerning for osteomyelitis, podiatry was consulted and patient will undergo amputation of second toe today. Wound cultures were finalized from patient toe which did show pansensitive Klebsiella and Streptococcus agalactiae. 1/2 blood cultures drawn 10/05/16 preliminarily show gram-positive cocci, with prior wound culture for strep agalactiae, will cover patient for potential bacteremia with Vanco. Patient's right second toe amputated on 10/08/69 Continue vancomycin Consult wound care for assistance in proper care of wound Will stop ceftriaxone Continue Pain control with Percocet 7.5/325 Qualifiers: Sepsis type: sepsis due to unspecified organism Qualified Code(s): A41.9 - Sepsis, unspecified organism (2) Osteomyelitis of toe of right foot Current Visit: Yes Status: Acute Assessment and plan: plan as above (3) Bacteremia Current Visit: Yes Status: Acute Assessment and plan: Plan as above (4) Diabetic infection of right foot Current Visit: Yes Status: Acute Assessment and plan: Patient had right second toe amputated on 10/08/[address] Simons Plan as above (5) Cellulitis of right toe Current Visit: Yes Status: Acute Assessment and plan: Plan as above (6) Diabetes mellitus Current Visit: Yes Status: Acute Assessment and plan: Patient hemoglobin A1c of 10.2, this improvement from his prior hemoglobin A1c of reportedly 13. We will place on low-dose insulin sliding scale subcutaneous 10 units Levemir subcutaneous twice a day Diabetic diet Qualifiers: Diabetes mellitus type: type 2 Diabetes mellitus complication status: with hyperglycemia Diabetes mellitus watermaster insulin use: with watermaster use Qualified Code(s): E11.65 - Type 2 diabetes mellitus with hyperglycemia; Z79.4 - halfway (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 (7) DVT prophylaxis Current Visit: Yes Status: Acute Assessment and plan: 5000 units heparin subcutaneous twice a day - Subjective Interval history: Patient seen this morning and states that he is not feeling well, though he is unable to specify how exactly. He denies fever or chills, though he has been sweaty, denies abdominal pain, denies nausea/vomiting, denies shortness of breath or chest pain. - Constitutional Vitals: Temp Pulse Resp BP Pulse Ox 98.4 F 73 16 124/83 95 10/09/16 10:23 10/09/16 10:23 10/09/16 10:23 10/09/16 10:23 10/09/16 10:23 General appearance: Present: cooperative, A&O X 3, no acute distress, answers questions appropriately Exam: General: Cooperative, pleasant, appears in slight distress, alert and oriented 3, answers questions appropriately, diaphoretic HEENT: Normocephalic, atraumatic, neck supple, trachea midline, right eye pale, blind in right eye Respiratory: No accessory muscle usage, clear to auscultation bilaterally, no wheezes/rhonchi/rales appreciated Cardiovascular: Regular rate and rhythm, S1 and S2 present, no murmurs/rubs/ gallops/clicks appreciated GI/abdominal: Nondistended, nontender, soft, normal bowel sounds, no peritoneal signs Extremities: No calf tenderness, noncyanotic, no pedal edema appreciated, warm, lower extremity pulses palpable and symmetrical, prior right great toe amputation, dressing in place on right foot following amputation of right second toe earlier today Neurological: Alert and oriented 3, no facial droop, no focal deficits Skin: Dry, intact, normal color Internal Medicine: Result - Labs CBC & Chem 7: 10/09/16 05:39 10/09/16 05:39 Labs: Short CBC 10/09/16 Range/Units 05:39 WBC 5.5 (4.3-11.1) K/mcL Hgb 12.4 L (12.9-16.9) g/dL Hct 36.4 L (37.5-50.1) % Plt Count 283 (140-400) K/mcL Neutrophils # 3.2 (1.6-8.9) K/mcL BMP 10/09/16 05:39 Sodium 135 L Potassium 4.7 H Chloride 100 Carbon Dioxide 31 H BUN 12 Creatinine 0.86 Glucose 302 H Calcium 8.7 - ABG Interpretation ABG results: PT/INR, D-dimer PT 11.1 Seconds (9.4-12.1) 10/05/16 10:00 - VTE Documentation of Mechanical Device: Intermittent pneumatic compression device Consult Discharge Plan - Plan Referrals: Yesenia Daniel, MANAGER [employer] B[employer]ING [Primary Care Provider] - <Arabella Perkins - Last Filed: 10/09/16 16:06> Date of Encounter: 10/09/16 - Assessment and plan (1) Sepsis Current Visit: Yes Status: Acute Qualifiers: Sepsis type: sepsis due to unspecified organism Qualified Code(s): A41.9 - Sepsis, unspecified organism (2) Cellulitis of right toe Current Visit: Yes Status: Acute (3) Diabetic infection of right foot Current Visit: Yes Status: Acute (4) Diabetes mellitus Current Visit: Yes Status: Acute Qualifiers: Diabetes mellitus type: type 2 Diabetes mellitus complication status: with hyperglycemia Diabetes mellitus usp insulin use: with usp use Qualified Code(s): E11.65 - Type 2 diabetes mellitus with hyperglycemia; Z79.4 - halfway (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 (5) Hypokalemia Current Visit: Yes Status: Acute - Constitutional Vitals: Temp Pulse Resp BP Pulse Ox 98.4 F 73 16 124/83 95 10/09/16 10:23 10/09/16 10:23 10/09/16 10:23 10/09/16 10:23 10/09/16 10:23 Internal Medicine: Result - Labs CBC & Chem 7: 10/09/16 05:39 10/09/16 05:39 Labs: Short CBC 10/09/16 Range/Units 05:39 WBC 5.5 (4.3-11.1) K/mcL Hgb 12.4 L (12.9-16.9) g/dL Hct 36.4 L (37.5-50.1) % Plt Count 283 (140-400) K/mcL Neutrophils # 3.2 (1.6-8.9) K/mcL [facility] 10/09/16 05:39 Sodium 135 L Potassium 4.7 H Chloride 100 Carbon Dioxide 31 H BUN 12 Creatinine 0.86 Glucose 302 H Calcium 8.7 - ABG Interpretation ABG results: PT/INR, D-dimer PT 11.1 Seconds (9.4-12.1) 10/05/16 10:00 - Attending Attestation I examined this patient and reviewed laboratory, imaging and all diagnostic data. My medical decision-making was reviewed with Dr Leroy Rouse - Resident Physician. I agree with the documented findings, disposition and treatment plan as described above with the following additions. Correction to diagnosis: Diabetes type 1.
[2016-10-10] MEDS: *HR* OxyCODONE/APAP 7.5/325 TABLET PO PRN ×3 (04:10→21:11)
[2016-10-10 04:57] LABS: Basophils % 0.5 %; Eosinophils # 0.3 K/mcL (0.0-0.6); Eosinophils % 5.1 %; Hemoglobin 12.7 g/dL (12.9-16.9); Immature Granulocytes % 0.2 % (0-4); Lymphocytes # 1.8 K/mcL (0.6-4.6); Lymphocytes % 32.3 %; Mean Corpuscular HGB Conc 33.4 g/dL (31.6-35.5); Mean Corpuscular Hemoglobin 29.7 pg (28.0-33.3); Mean Corpuscular Volume 88.8 fL (83.0-100.0); Mean Platelet Volume 9.2 fL (9.4-12.4); Monocytes # 0.4 K/mcL (0.0-1.3); Monocytes % 7.8 %; Platelet Count 312 K/mcL (140-400); Red Blood Count 4.28 M/mcL (4.19-5.50); Red Cell Distribution Width 12.1 % (11.5-14.5); Segmented Neutrophils % 54.1 %
[2016-10-10 05:29] LABS: BUN/Creatinine Ratio 13 (6-26); Blood Urea Nitrogen 11 mg/dL (8-26); Carbon Dioxide 28 mEq/L (19-29); Chloride 99 mEq/L (98-109); Glucose 310 mg/dL (70-99); Osmolality,Calculated 291 (280-300); Potassium 4.5 mEq/L (3.5-4.5); Sodium 135 mEq/L (136-145); eGFR For African Americans > 60 (> 60); eGFR For Non-African Americans > 60 (> 60)
[2016-10-10] MEDS: *HR* Heparin 5,000 UNIT/ML VIAL SQ SCH ×2 (06:06→16:10)
[2016-10-10] MEDS: Insulin LISPRO 300 UNITS/3 ML VIAL SQ SCH ×4 (07:43→21:08)
[2016-10-10] MEDS: Pantoprazole 40 MG VIAL IVP SCH (07:43)
[2016-10-10] MEDS: Aspirin 81 MG TAB.CHEW PO SCH (07:44)
[2016-10-10] MEDS: Vancomycin 1,250 MG in D5% in Water 250 ML IVPB SCH ×2 (09:01→21:10)
[2016-10-10] MEDS: Insulin DETEMIR 100 UNIT/ML X5UNITS SQ SCH ×2 (09:01→21:09)
--- NOTE | 2016-10-10 12:03 | Internal Med Progress Note ---
Date of Encounter: 10/10/16 Time of Encounter: 12:00 - Assessment and plan (1) Sepsis Current Visit: Yes Status: Acute Assessment and plan: Patient presented to [facility] with tachycardia, temperature of 102, an elevated lactic acid 2.5. Source of infection in his right second toe and GPC bacteremia. Patient received 3 L IV fluid at presentation as well as vancomycin and Zosyn. CT scan performed on 10/07/16 showed signs concerning for osteomyelitis, podiatry was consulted and patient will undergo amputation of second toe today. Wound cultures were finalized from patient toe which did show pansensitive Klebsiella and Streptococcus agalactiae. 1/2 blood cultures drawn 10/05/16 preliminarily show gram-positive cocci, with prior wound culture for strep agalactiae, will cover patient for potential bacteremia with Vanco. Blood cultures taken on 10/11 Patient's right second toe amputated on 10/08/69 Continue vancomycin Consult wound care for assistance in proper care of wound Continue Pain control with Percocet 7.5/325 Qualifiers: Sepsis type: sepsis due to unspecified organism Qualified Code(s): A41.9 - Sepsis, unspecified organism (2) Bacteremia due to Gram-positive bacteria Current Visit: Yes Status: Acute Assessment and plan: plan as above (3) Cellulitis of right toe Current Visit: Yes Status: Acute Assessment and plan: Plan as above (4) Diabetic infection of right foot Current Visit: Yes Status: Acute Assessment and plan: Patient had right second toe amputated on 10/08/[address] Simons Plan as above (5) Diabetes mellitus Current Visit: Yes Status: Acute Assessment and plan: Patient hemoglobin A1c of 10.2, this improvement from his prior hemoglobin A1c of reportedly 13. We will place on low-dose insulin sliding scale subcutaneous increase Levemir to 15 units subcutaneous twice a day Diabetic diet Qualifiers: Diabetes mellitus type: type 2 Diabetes mellitus complication status: with hyperglycemia Diabetes mellitus skilled nursing insulin use: with rodent exterminator use Qualified Code(s): E11.65 - Type 2 diabetes mellitus with hyperglycemia; Z79.4 - shelter (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 - Subjective Interval history: no complaints. mild right foot pain - Constitutional Vitals: Temp Pulse Resp BP Pulse Ox 97.8 F 88 16 105/61 97 10/10/16 10:42 10/10/16 10:42 10/10/16 10:42 10/10/16 10:42 10/10/16 10:42 General appearance: Present: cooperative, A&O X 3, no acute distress, answers questions appropriately - Eye Eye exam: Present: PERRL, sclera anicteric - Respiratory Respiratory exam: Present: CTAB - Cardiovascular Cardiovascular exam: Present: RRR - GI/Abdominal GI/Abdominal exam: Present: normal bowel sounds, soft. Absent: distended, tenderness - Extremities Exam Additional comments: Extremities: prior right great toe amputation, dressing in place on right foot following amputation of right second toe, no pedal edema appreciated, lower extremity pulses palpable and symmetrical. - Back Exam Back exam: Absent: CVA tenderness (L), CVA tenderness (R) - Neurological Exam Neurological exam: Present: alert, oriented X3, no focal deficits. Absent: pronater drift, facial droop, speech deficit - Skin Skin exam: Absent: intact Internal Medicine: Result - Labs CBC & Chem 7: 10/10/16 03:56 10/10/16 03:56 Labs: Short CBC 10/10/16 Range/Units 03:56 WBC 5.5 (4.3-11.1) K/mcL Hgb 12.7 L (12.9-16.9) g/dL Hct 38.0 (37.5-50.1) % Plt Count 312 (140-400) K/mcL Neutrophils # 3.0 (1.6-8.9) K/mcL BMP 10/10/16 03:56 Sodium 135 L Potassium 4.5 Chloride 99 Carbon Dioxide 28 BUN 11 Creatinine 0.87 Glucose 310 H Calcium 9.0 - ABG Interpretation ABG results: PT/INR, D-dimer PT 11.1 Seconds (9.4-12.1) 10/05/16 10:00 - VTE Documentation of Mechanical Device: Intermittent pneumatic compression device Consult Discharge Plan - Plan Referrals: Yesenia Daniel, AUTOMOTIVE PARTS CLERK [Primary Care Provider] -
[2016-10-10] MEDS ORDERED: Insulin DETEMIR 100 UNIT/ML X5UNITS SQ ONE (12:37)
[2016-10-11] MEDS: *HR* OxyCODONE/APAP 7.5/325 TABLET PO PRN ×4 (04:30→21:24)
[2016-10-11] MEDS: *HR* Heparin 5,000 UNIT/ML VIAL SQ SCH ×2 (04:32→16:40)
[2016-10-11 05:41] LABS: Basophils % 0.7 %; Eosinophils # 0.3 K/mcL (0.0-0.6); Eosinophils % 5.1 %; Hematocrit 39.6 % (37.5-50.1); Hemoglobin 13.2 g/dL (12.9-16.9); Immature Granulocytes % 0.3 % (0-4); Lymphocytes # 1.9 K/mcL (0.6-4.6); Lymphocytes % 32.6 %; Mean Corpuscular HGB Conc 33.3 g/dL (31.6-35.5); Mean Corpuscular Hemoglobin 30.3 pg (28.0-33.3); Mean Corpuscular Volume 90.8 fL (83.0-100.0); Mean Platelet Volume 9.1 fL (9.4-12.4); Monocytes # 0.4 K/mcL (0.0-1.3); Monocytes % 7.1 %; Neutrophils # 3.1 K/mcL (1.6-8.9); Platelet Count 317 K/mcL (140-400); Red Blood Count 4.36 M/mcL (4.19-5.50); Red Cell Distribution Width 12.2 % (11.5-14.5); Segmented Neutrophils % 54.2 %
[2016-10-11 05:57] LABS: BUN/Creatinine Ratio 13 (6-26); Blood Urea Nitrogen 13 mg/dL (8-26); Carbon Dioxide 30 mEq/L (19-29); Chloride 99 mEq/L (98-109); Glucose 342 mg/dL (70-99); Magnesium 1.6 mg/dL (1.6-2.6); Osmolality,Calculated 294 (280-300); Potassium 4.7 mEq/L (3.5-4.5); Sodium 135 mEq/L (136-145); eGFR For African Americans > 60 (> 60); eGFR For Non-African Americans > 60 (> 60)
[2016-10-11] MEDS: Insulin LISPRO 300 UNITS/3 ML VIAL SQ SCH ×4 (08:42→21:23)
[2016-10-11] MEDS: Aspirin 81 MG TAB.CHEW PO SCH (08:43)
[2016-10-11] MEDS: Pantoprazole 40 MG VIAL IVP SCH (08:43)
[2016-10-11] MEDS: Insulin DETEMIR 100 UNIT/ML X5UNITS SQ SCH ×2 (08:43→21:23)
[2016-10-11] MEDS: Vancomycin 1,250 MG in D5% in Water 250 ML IVPB SCH ×2 (08:43→21:27)
--- NOTE | 2016-10-11 12:10 | Internal Med Progress Note ---
Date of Encounter: 10/11/16 Time of Encounter: 11:45 (5) - Assessment and plan (1) Sepsis Current Visit: Yes Status: Acute Assessment and plan: resolved. Patient presented to [facility] with tachycardia, temperature of 102, an elevated lactic acid 2.5. Source of infection in his right second toe and GPC bacteremia. Patient received 3 L IV fluid at presentation as well as vancomycin and Zosyn. CT scan performed on 10/07/16 showed signs concerning for osteomyelitis, podiatry was consulted and patient will undergo amputation of second toe today. Wound cultures were finalized from patient toe which did show pansensitive Klebsiella and Streptococcus agalactiae. 1/2 blood cultures drawn 10/05/16 preliminarily show gram-positive cocci, with prior wound culture for strep agalactiae, will cover patient for potential bacteremia with Vanco. Blood cultures on 10/11 are negative so far Patient's right second toe amputated on 10/08/16. Continue vancomycin Consult wound care for assistance in proper care of wound Continue Pain control with Percocet 7.5/325 Qualifiers: Sepsis type: sepsis due to unspecified organism Qualified Code(s): A41.9 - Sepsis, unspecified organism (2) Bacteremia due to Gram-positive bacteria Current Visit: Yes Status: Acute Assessment and plan: awaiting final results of GPC bacteremia. (3) Cellulitis of right toe Current Visit: Yes Status: Acute Assessment and plan: Plan as above (4) Diabetic infection of right foot Current Visit: Yes Status: Acute Assessment and plan: Patient had right second toe amputated on 10/08/[address] Simons Plan as above (5) Diabetes mellitus Current Visit: Yes Status: Acute Assessment and plan: Patient hemoglobin A1c of 10.2, this improvement from his prior hemoglobin A1c of reportedly 13. not yet controlled. continue Levemir to 15 units subcutaneous twice a day, iss, Diabetic diet Qualifiers: Diabetes mellitus type: type 2 Diabetes mellitus complication status: with hyperglycemia Diabetes mellitus superintendent marine oil terminal insulin use: with penitentiary use Qualified Code(s): E11.65 - Type 2 diabetes mellitus with hyperglycemia; Z79.4 - terminal system operator (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 - Subjective Interval history: he reports feeling very weak. - Constitutional Vitals: Temp Pulse Resp BP Pulse Ox 98.9 F 91 16 129/78 95 10/11/16 10:16 10/11/16 10:16 10/11/16 10:16 10/11/16 10:16 10/11/16 10:16 General appearance: Present: cooperative, A&O X 3, no acute distress, answers questions appropriately - Eye Additional comments: legally blind - Neck Neck exam general surgery: Present: supple, trachea midline. Absent: lymphadenopathy - Respiratory Respiratory exam: Present: CTAB - Cardiovascular Cardiovascular exam: Present: RRR - GI/Abdominal GI/Abdominal exam: Present: normal bowel sounds, soft. Absent: distended, tenderness - Extremities Exam Additional comments: Extremities: prior right great toe amputation, dressing in place on right foot following amputation of right second toe, no pedal edema appreciated, lower extremity pulses palpable and symmetrical. - Back Exam Back exam: Absent: CVA tenderness (L), CVA tenderness (R) - Neurological Exam Neurological exam: Present: alert, oriented X3. Absent: facial droop, speech deficit Internal Medicine: Result - Labs CBC & Chem 7: 10/11/16 05:15 10/11/16 05:15 Labs: Short CBC 10/11/16 Range/Units 05:15 WBC 5.7 (4.3-11.1) K/mcL Hgb 13.2 (12.9-16.9) g/dL Hct 39.6 (37.5-50.1) % Plt Count 317 (140-400) K/mcL Neutrophils # 3.1 (1.6-8.9) K/mcL BMP 10/11/16 05:15 Sodium 135 L Potassium 4.7 H Chloride 99 Carbon Dioxide 30 H BUN 13 Creatinine 1.03 Glucose 342 H Calcium 9.0 - ABG Interpretation ABG results: PT/INR, D-dimer PT 11.1 Seconds (9.4-12.1) 10/05/16 10:00 - VTE Documentation of Mechanical Device: Intermittent pneumatic compression device Consult Discharge Plan - Plan Referrals: Yesenia Daniel, CREDIT UNION EXAMINER [Primary Care Provider] -
[2016-10-12 04:10] LABS: Basophils % 0.6 %; Eosinophils # 0.3 K/mcL (0.0-0.6); Eosinophils % 5.1 %; Hematocrit 37.9 % (37.5-50.1); Hemoglobin 12.8 g/dL (12.9-16.9); Immature Granulocytes % 0.2 % (0-4); Lymphocytes # 2.3 K/mcL (0.6-4.6); Mean Corpuscular HGB Conc 33.8 g/dL (31.6-35.5); Mean Corpuscular Hemoglobin 30.7 pg (28.0-33.3); Mean Corpuscular Volume 90.9 fL (83.0-100.0); Mean Platelet Volume 9.1 fL (9.4-12.4); Monocytes # 0.5 K/mcL (0.0-1.3); Monocytes % 7.7 %; Neutrophils # 3.4 K/mcL (1.6-8.9); Platelet Count 314 K/mcL (140-400); Red Blood Count 4.17 M/mcL (4.19-5.50); Red Cell Distribution Width 12.4 % (11.5-14.5); Segmented Neutrophils % 51.4 %
[2016-10-12 04:28] LABS: BUN/Creatinine Ratio 20 (6-26); Blood Urea Nitrogen 22 mg/dL (8-26); Carbon Dioxide 30 mEq/L (19-29); Chloride 99 mEq/L (98-109); Glucose 277 mg/dL (70-99); Magnesium 1.6 mg/dL (1.6-2.6); Osmolality,Calculated 293 (280-300); Potassium 4.6 mEq/L (3.5-4.5); Sodium 135 mEq/L (136-145); eGFR For African Americans > 60 (> 60); eGFR For Non-African Americans > 60 (> 60)
[2016-10-12] MEDS: *HR* Heparin 5,000 UNIT/ML VIAL SQ SCH ×2 (05:27→17:26)
[2016-10-12] MEDS: Insulin LISPRO 300 UNITS/3 ML VIAL SQ SCH ×4 (09:05→21:04)
--- NOTE | 2016-10-12 09:09 | Internal Med Progress Note ---
<Leroy Rouse - Last Filed: 10/12/16 11:22> Date of Encounter: 10/12/16 Time of Encounter: 08:35 - Assessment and plan (1) Sepsis Current Visit: Yes Status: Acute Assessment and plan: Resolved. Patient presented to [facility] with tachycardia, temperature of 102, an elevated lactic acid 2.5. Source of infection in his right second toe and GPC bacteremia. Patient received 3 L IV fluid at presentation as well as vancomycin and Zosyn. CT scan performed on 10/07/16 showed signs concerning for osteomyelitis, podiatry was consulted and patient will undergo amputation of second toe today. Wound cultures were finalized from patient toe which did show pansensitive Klebsiella and Streptococcus agalactiae. / blood cultures drawn 10/05/16 preliminarily show gram-positive cocci, with prior wound culture for strep agalactiae, will cover patient for potential gram positive bacteremia with Vanco. Blood cultures on 10/09 Show NGTD Patient's right second toe amputated on 10/08/16 Continue vancomycin Consult wound care for assistance in proper care of wound Continue Pain control with Percocet 7.5/325 Consider expanding antibiotics if patient develops fever or leukocytosis will consult social work for assistance in locating resources as patient admits to being homeless Qualifiers: Sepsis type: sepsis due to unspecified organism Qualified Code(s): A41.9 - Sepsis, unspecified organism (2) Osteomyelitis of toe of right foot Current Visit: Yes Status: Acute Assessment and plan: plan as above (3) Bacteremia Current Visit: Yes Status: Acute Assessment and plan: Plan as above (4) Diabetic infection of right foot Current Visit: Yes Status: Acute Assessment and plan: Patient had right second toe amputated on 10/08/[address] Simons Plan as above (5) Cellulitis of right toe Current Visit: Yes Status: Acute Assessment and plan: Plan as above (6) Diabetes mellitus Current Visit: Yes Status: Acute Assessment and plan: Patient hemoglobin A1c of 10.2, this improvement from his prior hemoglobin A1c of reportedly 13. not yet controlled. 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 When asked how so, he replies that he is having aches and pain all over, and reports that he feels cold constantly. He is feeling some malaise in general and reports that he has not been sleeping well. He denies fever, shortness of breath, or chest pain. - Constitutional Vitals: Temp Pulse Resp BP Pulse Ox 97.6 F 69 16 100/60 97 10/12/16 06:52 10/12/16 06:52 10/12/16 06:52 10/12/16 06:52 10/12/16 06:52 General appearance: Present: cooperative, A&O X 3, no acute distress, answers questions appropriately Exam: General: Cooperative, pleasant, appears in slight distress, alert and oriented 3, answers questions appropriately HEENT: Normocephalic, atraumatic, neck supple, trachea midline, right eye pale, blind in right eye Respiratory: No accessory muscle usage, clear to auscultation bilaterally, no wheezes/rhonchi/rales appreciated Cardiovascular: Regular rate and rhythm, S1 and S2 present, no murmurs/rubs/ gallops/clicks appreciated GI/abdominal: Nondistended, nontender, soft, normal bowel sounds, no peritoneal signs Extremities: No calf tenderness, noncyanotic, mild, non-pitted edema in RLE, right leg slightly warmer than left leg, warm, lower extremity pulses palpable and symmetrical, prior right great toe amputation, dressing in place on right foot following amputation of right second toe earlier today Neurological: Alert and oriented 3, no facial droop, no focal deficits Skin: Dry, intact, normal color Internal Medicine: Result - Labs CBC & Chem 7: 10/12/16 03:42 10/12/16 03:42 Labs: Short CBC 10/12/16 Range/Units 03:42 WBC 6.6 (4.3-11.1) K/mcL Hgb 12.8 L (12.9-16.9) g/dL Hct 37.9 (37.5-50.1) % Plt Count 314 (140-400) K/mcL Neutrophils # 3.4 (1.6-8.9) K/mcL BMP 10/12/16 03:42 Sodium 135 L Potassium 4.6 H Chloride 99 Carbon Dioxide 30 H BUN 22 Creatinine 1.08 Glucose 277 H Calcium 9.0 - ABG Interpretation ABG results: PT/INR, D-dimer PT 11.1 Seconds (9.4-12.1) 10/05/16 10:00 - VTE Documentation of Mechanical Device: Intermittent pneumatic compression device Consult Discharge Plan - Plan Referrals: Yseenia Daniel, LINER ASSEMBLER [Primary Care Provider] - <Arabella Perkins - Last Filed: 10/12/16 16:42> Date of Encounter: 10/12/16 - Assessment and plan (1) Sepsis Current Visit: Yes Status: Acute Qualifiers: Sepsis type: sepsis due to unspecified organism Qualified Code(s): A41.9 - Sepsis, unspecified organism (2) Bacteremia due to Gram-positive bacteria Current Visit: Yes Status: Acute (3) Cellulitis of right toe Current Visit: Yes Status: Acute (4) Diabetic infection of right foot Current Visit: Yes Status: Acute (5) Diabetes mellitus Current Visit: Yes Status: Acute Qualifiers: Diabetes mellitus type: type 2 Diabetes mellitus complication status: with hyperglycemia 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 insulin 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: with regional intermodal truck driver use Qualified Code(s): E11.65 - Type 2 diabetes mellitus with hyperglycemia; Z79.4 - residential (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 - Constitutional Vitals: Temp Pulse Resp BP Pulse Ox 98.0 F 74 14 97/61 96 10/12/16 11:33 10/12/16 11:33 10/12/16 11:33 10/12/16 11:33 10/12/16 11:33 Internal Medicine: Result - Labs CBC & Chem 7: 10/12/16 03:42 10/12/16 03:42 Labs: Short CBC 10/12/16 Range/Units 03:42 WBC 6.6 (4.3-11.1) K/mcL Hgb 12.8 L (12.9-16.9) g/dL Hct 37.9 (37.5-50.1) % Plt Count 314 (140-400) K/mcL Neutrophils # 3.4 (1.6-8.9) K/mcL BMP 10/12/16 03:42 Sodium 135 L Potassium 4.6 H Chloride 99 Carbon Dioxide 30 H BUN 22 Creatinine 1.08 Glucose 277 H Calcium 9.0 Urine 10/12/16 Range/Units 13:48 Urine Color Yellow (Yellow) Urine Clarity Clear (Clear) Urine pH 6.0 (5.0-8.0) pH Units Ur Specific Whiting 1.025 (1.010-1.025) Urine Protein Negative (Neg-Trace) mg/dL Urine Glucose (UA) >=1000 H (Normal) mg/dL - ABG Interpretation ABG results: PT/INR, D-dimer PT 11.1 Seconds (9.4-12.1) 10/05/16 10:00 - Attending Attestation I examined this patient and reviewed laboratory, imaging and all diagnostic data. My medical decision-making was reviewed with Dr Leroy Rouse - Resident Physician. I agree with the documented findings, disposition and treatment plan as described above with the following additions.
[2016-10-12] MEDS: Aspirin 81 MG TAB.CHEW PO SCH (09:55)
[2016-10-12] MEDS: *HR* OxyCODONE/APAP 7.5/325 TABLET PO PRN ×4 (09:56→22:59)
[2016-10-12] MEDS: Pantoprazole 40 MG VIAL IVP SCH (09:56)
[2016-10-12] MEDS: Insulin DETEMIR 100 UNIT/ML X5UNITS SQ SCH ×2 (10:53→21:19)
[2016-10-12] MEDS: Vancomycin 1,250 MG in D5% in Water 250 ML IVPB SCH ×2 (10:54→21:18)
[2016-10-12 14:02] LABS: Bilirubin,Urine Negative (Negative); Blood,Urine Negative (Negative); Clarity,Urine Clear (Clear); Color,Urine Yellow (Yellow); Glucose,Urine (UA) >=1000 mg/dL (Normal); Ketones,Urine Negative (Negative); Leukocyte Esterase,Urine Negative (Negative); Nitrite,Urine Negative (Negative); Protein,Urine Negative (Neg-Trace); Specific Gravity,Urine 1.025 (1.010-1.025); Urobilinogen,Urine Normal (Normal)
--- NOTE | 2016-10-12 15:51 | Podiatry Progress Note ---
Date of Encounter: 10/12/16 Time of Encounter: 15:20 - Assessment and Plan (1) Diabetes mellitus with neuropathy Current Visit: Yes Status: Acute Qualifiers: Diabetes mellitus type: type 1 Qualified Code(s): E10.40 - Type 1 diabetes mellitus with diabetic neuropathy, unspecified (2) Diabetic infection of right foot Current Visit: Yes Status: Acute S/p amputation of toe #2 of the right foot by Dr. Simons on 10/08/16 for osteomyelitis. All infected bone and devitalized tissue was removed in surgery, no clinical evidence of bacterial infection to remaining bone and tissue. Dressing changed at bedside, incision line well approximated, light periwound erythema, no streaking, no pus, no odor. Site irrigated with saline, pat dry, betadine applied with adaptic, 4x4 gauze and kerlix. Dressing can be changed daily while admitted. Leave dressing in place after discharge until f/u appointment with Dr. Simons. Significant improvement to right foot since surgery. WBC: 6.6, a febrile. Wound cultures isolated Klebsiella pneumoniae and strep agalactiae (Group B), receiving Vancomycin currently. Blood cultures 1/2 with GPC on 10/05/16, Blood cultures from 10/09/16 NGTD. Patient to continue short cam boot to the right foot and remain protective weight bearing. F/u in Podiatry clinic with Dr. Simons with in one week of discharge from hospital. (3) Cellulitis of right toe Current Visit: Yes Status: Acute Subjective Interval history: Patient is s/p amputation of toe #[address] Simons on 10/08/16. Dressing is dry and intact to right foot. Patient states his right foot feels swollen. He states he has aches all over his body and feels nauseous. He states he has no home to go to once he leaves the hospital. Objective - Vital Signs Vital Signs: Vital Signs Temp Pulse Resp BP Pulse Ox 10/12/16 11:33 98.0 F 74 14 97/61 96 10/12/16 06:52 97.6 F 69 16 100/60 97 10/11/16 23:51 98.2 F 66 16 100/52 98 10/11/16 20:48 97.7 F 63 18 99/59 98 Intake and Output 10/11/16 10/12/16 10/12/16 23:59 07:59 15:59 Intake Total 1300 / 1300 300 / 300 610 / 610 Output Total 850 / 850 625 / 625 400 / 400 Balance 450 / 450 -325 / -325 210 / 210 Intake: IV Fluids 250 / 250 250 / 250 Vancocin 1,250 MG In 250 / 250 250 / 250 Dextrose 5% 250 ML @ 166. 67 mls/hr IVPB Q12H [facility] Rx#:[id number] Oral 1050 / 1050 300 / 300 360 / 360 Output: Urine 850 / 850 625 / 625 400 / 400 Other: Meal Lunch Breakfast Percent of Meal Consumed 100% 100% # Voids 3 Weight 78.3 kg Blood Glucose* 209 230 253 Patient Weight 10/12/16 23:59 Weight 78.3 kg - Exam Exam: General appearance: alert awake oriented X 3. Calm and pleasant, no acute distress.. Vascular: Pedal pulses +2/4 DP/PT , No evidence of cyanosis, pallor or rubor, Edema graded at 1+/4, Skin Temperature warm, No calf pain with manual compression. capillary refill time is immediate to digits. Postop Exam: S/P Sutures intact to incision line, no signs of dehiscence. Light periwound erythema, No open area, no drainage, no odor, no streaking. Minimal edema. - Lab Result Diagrams: 10/12/16 03:42 10/12/16 03:42 Labs: Abnormal lab results RBC 4.17 M/mcL (4.19-5.50) L 10/12/16 03:42 Hgb 12.8 g/dL (12.9-16.9) L 10/12/16 03:42 MPV 9.1 fL (9.4-12.4) L 10/12/16 03:42 ESR 69 mm/hr (0-10) H 10/07/16 05:38 Sodium 135 mEq/L (136-145) L 10/12/16 03:42 Potassium 4.6 mEq/L (3.5-4.5) H 10/12/16 03:42 Carbon Dioxide 30 mEq/L (19-29) H 10/12/16 03:42 Glucose 277 mg/dL (70-99) H 10/12/16 03:42 POC Glucose 253 (58-89) H 10/12/16 11:35 Hemoglobin A1c 10.2 % (-5.6) H 10/06/16 05:32 C-Reactive Protein 79 mg/L (Less than 5) H 10/05/16 10:00 Albumin 3.0 g/dL (3.5-5.0) L 10/05/16 10:00 Globulin 4.1 g/dL (2.4-3.5) H 10/05/16 10:00 Albumin/Globulin Ratio 0.7 (1.1-2.2) L 10/05/16 10:00 Beta-Hydroxybutyric Acd 0.39 mmol/L (0.02-0.27) H 10/05/16 10:00 Urine Glucose (UA) >=1000 mg/dL (Normal) H 10/12/16 13:48 Microbiology, Last 48 Hours 10/08/16 10:40 Anaerobic Culture - Final Right Foot Anaerobic Gram Negative Renato 10/09/16 12:05 Blood Culture - Preliminary Peripheral Venipuncture No growth. 10/09/16 12:00 Blood Culture - Preliminary Peripheral Venipuncture No growth. 10/08/16 10:40 Wound Culture - Final Right Foot Klebsiella oxytoca Enterobacter cloacae Staphylococcus aureus - VTE Documentation of Mechanical Device: Intermittent pneumatic compression device Consult Discharge Plan - Plan Referrals: Yesenia Daniel, CINDY [Primary Care Provider] -
[2016-10-13 05:49] LABS: Basophils % 0.6 %; Eosinophils # 0.4 K/mcL (0.0-0.6); Eosinophils % 6.4 %; Hematocrit 39.4 % (37.5-50.1); Hemoglobin 13.4 g/dL (12.9-16.9); Immature Granulocytes % 0.3 % (0-4); Lymphocytes # 2.4 K/mcL (0.6-4.6); Lymphocytes % 35.6 %; Mean Corpuscular Volume 91.2 fL (83.0-100.0); Mean Platelet Volume 9.2 fL (9.4-12.4); Monocytes # 0.5 K/mcL (0.0-1.3); Neutrophils # 3.4 K/mcL (1.6-8.9); Platelet Count 321 K/mcL (140-400); Red Blood Count 4.32 M/mcL (4.19-5.50); Red Cell Distribution Width 12.5 % (11.5-14.5); Segmented Neutrophils % 50.1 %
[2016-10-13] MEDS: *HR* OxyCODONE/APAP 7.5/325 TABLET PO PRN ×4 (05:49→21:42)
[2016-10-13] MEDS: *HR* Heparin 5,000 UNIT/ML VIAL SQ SCH ×2 (05:49→17:02)
[2016-10-13 06:09] LABS: BUN/Creatinine Ratio 20 (6-26); Blood Urea Nitrogen 20 mg/dL (8-26); Calcium 9.1 mg/dL (8.6-10.8); Carbon Dioxide 31 mEq/L (19-29); Chloride 101 mEq/L (98-109); Glucose 174 mg/dL (70-99); Osmolality,Calculated 293 (280-300); Potassium 4.5 mEq/L (3.5-4.5); Sodium 138 mEq/L (136-145); eGFR For African Americans > 60 (> 60); eGFR For Non-African Americans > 60 (> 60)
[2016-10-13] MEDS: Insulin LISPRO 300 UNITS/3 ML VIAL SQ SCH ×4 (07:40→21:41)
[2016-10-13] MEDS: Aspirin 81 MG TAB.CHEW PO SCH (07:41)
[2016-10-13] MEDS: Insulin DETEMIR 100 UNIT/ML X5UNITS SQ SCH ×2 (09:50→21:42)
[2016-10-13] MEDS ORDERED: Vancomycin 1,000 MG in D5% in Water 250 ML IVPB SCH (10:00)
[2016-10-13] MEDS ORDERED: Aminoglycoside Consult 1 EACH MC ONE (12:00)
--- NOTE | 2016-10-13 15:31 | Internal Med Progress Note ---
Date of Encounter: 10/13/16 Time of Encounter: 15:29 - Assessment and plan (1) Sepsis Current Visit: Yes Status: Acute Assessment and plan: Secondary to right second toe osteomyelitis/cellulitis status post amputation with gram-positive cocci bacteremia possibly contamination Resolved. Patient presented to [facility] with tachycardia, temperature of 102, an elevated lactic acid 2.5. Was started on vancomycin and Zosyn, both discontinued Start Augmentin CT scan performed on 10/07/16 showed signs concerning for osteomyelitis, podiatry was consulted and patient underwent amputation of second toe. Wound cultures were finalized from patient toe which did show pansensitive Klebsiella and Streptococcus agalactiae. 1/ blood cultures drawn 10/05/16 preliminarily show gram-positive cocci, with prior wound culture for strep agalactiae, will cover patient for potential gram positive bacteremia with Vanco. Blood cultures on 10/09 Show NGTD Continue Pain control with Percocet 7.5/325 social work for assistance in locating resources as patient admits to being homeless Qualifiers: Sepsis type: methicillin susceptible Staphylococcus aureus Qualified Code(s ): A41.01 - Sepsis due to Methicillin susceptible Staphylococcus aureus (2) Hypokalemia Current Visit: Yes Status: Acute Assessment and plan: Repleted (3) Diabetes mellitus with neuropathy Current Visit: Yes Status: Acute Qualifiers: Diabetes mellitus type: type 1 Qualified Code(s): E10.40 - Type 1 diabetes mellitus with diabetic neuropathy, unspecified (4) Osteomyelitis of toe of right foot Current Visit: Yes Status: Acute Assessment and plan: plan as above (5) Bacteremia due to Gram-positive bacteria Current Visit: Yes Status: Acute Assessment and plan: awaiting final results of GPC bacteremia. Culture may be available tomorrow as it was a send out - Subjective Interval history: Patient says that he has been hurting all over. Pain is 10 out of 10 mainly in his right foot, denies any chest pain, shortness of breath, no abdominal pain or dysuria. Feels weak. 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 Absent: lymphadenopathy - Respiratory Respiratory exam: Present: CTAB. Absent: accessory muscle use, rales, rhonchi, wheezes - Cardiovascular Cardiovascular exam: Present: RRR, +S1, +S2. Absent: diastolic murmur, gallop, rubs, systolic murmur - GI/Abdominal GI/Abdominal exam: Present: normal bowel sounds, soft, no peritoneal signs. Absent: distended, tenderness - Extremities Exam Extremities exam: Present: warm, radial pulses palpable and symetrical. Absent : calf tenderness, cyanotic, pedal edema - Neurological Exam Neurological exam: Present: CN II-XII intact, oriented X3, no focal deficits. Absent: pronater drift, facial droop, speech deficit - Skin Skin exam: Present: dry. Absent: intact (Right second toe surgical wound without signs of infection, covered by dressing) Internal Medicine: Result - Labs CBC & Chem 7: 10/13/16 04:44 10/13/16 04:44 Labs: Short CBC 10/13/16 Range/Units 04:44 WBC 6.7 (4.3-11.1) K/mcL Hgb 13.4 (12.9-16.9) g/dL Hct 39.4 (37.5-50.1) % Plt Count 321 (140-400) K/mcL Neutrophils # 3.4 (1.6-8.9) K/mcL BMP 10/13/16 04:44 Sodium 138 Potassium 4.5 Chloride 101 Carbon Dioxide 31 H BUN 20 Creatinine 1.00 Glucose 174 H Calcium 9.1 - ABG Interpretation ABG results: PT/INR, D-dimer PT 11.1 Seconds (9.4-12.1) 10/05/16 10:00 - VTE Documentation of Mechanical Device: Intermittent pneumatic compression device Consult Discharge Plan - Plan Referrals: Yesenia Daniel, CONCRETE PIPE MACHINE OPERATOR [Primary Care Provider] -
--- NOTE | 2016-10-13 15:47 | Podiatry Progress Note ---
Date of Encounter: 10/13/16 Time of Encounter: 15:20 - Assessment and Plan (1) Diabetes mellitus with neuropathy Current Visit: Yes Status: Acute Qualifiers: Diabetes mellitus type: type 1 Qualified Code(s): E10.40 - Type 1 diabetes mellitus with diabetic neuropathy, unspecified (2) Diabetic infection of right foot Current Visit: Yes Status: Acute S/p amputation of toe #2 of the right foot by Dr. Simons on 10/08/16 for osteomyelitis. All infected bone and devitalized tissue was removed in surgery, no clinical evidence of bacterial infection to remaining bone and tissue. Dressing changed at bedside, incision line well approximated, light periwound erythema, no streaking, no pus, no odor. Site irrigated with saline, pat dry, applied adaptic, 4x4 gauze and kerlix. Dressing can be changed daily while admitted. Leave dressing in place after discharge until f/u appointment with Dr. Simons. Significant improvement to right foot since surgery. WBC: 6.7, a febrile, glucose: 174 Wound cultures isolated Klebsiella pneumoniae and strep agalactiae (Group B), Vancomycin discontinued and currently receiving Augmentin. Blood cultures 1/2 with GPC on 10/05/16, Blood cultures from 10/09/16 NGTD. Patient to continue short cam boot to the right foot and remain protective weight bearing. F/u in Podiatry clinic with Dr. Simons with in one week of discharge from hospital. (3) Cellulitis of right toe Current Visit: Yes Status: Acute Subjective Interval history: Patient is s/p amputation of toe #[address] Simons on 10/08/16. Dressing is dry and intact to right foot. Patient states he has aches all over his body. reinforcing steel worker is coordinating discharge planning. Patient states he does not have a home to go to once he leaves the hospital. No c/o fever, chills. Objective - Vital Signs Vital Signs: Vital Signs Temp Pulse Resp BP Pulse Ox 10/13/16 10:51 97.7 F 79 16 97 10/13/16 06:37 98.3 F 65 16 109/65 99 10/12/16 23:16 98.4 F 63 14 96/58 98 10/12/16 20:23 98.0 F 68 15 96/60 97 10/12/16 17:12 97.7 F 67 16 93/57 94 Intake and Output 10/12/16 10/13/16 10/13/16 23:59 07:59 15:59 Intake Total 490 / 490 830 / 830 Output Total 1475 / 1475 Balance -985 / -985 830 / 830 Intake: IV Fluids 250 / 250 250 / 250 Vancocin 1,000 MG In 250 / 250 Dextrose 5% 250 ML @ 167 mls/hr IVPB Q12H [facility] Rx#: [id number] Vancocin 1,250 MG In 250 / 250 Dextrose 5% 250 ML @ 166. 67 mls/hr IVPB Q12H [facility] Rx#:[id number] Oral 240 / 240 580 / 580 Output: Urine 1475 / 1475 Other: Meal Dinner Lunch Percent of Meal Consumed 100% 100% Blood Glucose* 92 180 223 - Exam Exam: General appearance: alert awake oriented X 3. Calm and pleasant, no acute distress.. Vascular: Pedal pulses +2/4 DP/PT , No evidence of cyanosis, pallor or rubor, Edema graded at 1+/4, Skin Temperature warm, No calf pain with manual compression. capillary refill time is immediate to digits. Postop Exam: S/P Sutures intact to incision line, no signs of dehiscence. Light periwound erythema, No open area, no drainage, no odor, no streaking. Minimal edema. - Lab Result Diagrams: 10/13/16 04:44 10/13/16 04:44 Labs: Abnormal lab results MPV 9.2 fL (9.4-12.4) L 10/13/16 04:44 ESR 69 mm/hr (0-10) H 10/07/16 05:38 Carbon Dioxide 31 mEq/L (19-29) H 10/13/16 04:44 Glucose 174 mg/dL (70-99) H 10/13/16 04:44 POC Glucose 92 (58-89) H 10/12/16 20:27 Hemoglobin A1c 10.2 % (-5.6) H 10/06/16 05:32 C-Reactive Protein 79 mg/L (Less than 5) H 10/05/16 10:00 Albumin 3.0 g/dL (3.5-5.0) L 10/05/16 10:00 Globulin 4.1 g/dL (2.4-3.5) H 10/05/16 10:00 Albumin/Globulin Ratio 0.7 (1.1-2.2) L 10/05/16 10:00 Beta-Hydroxybutyric Acd 0.39 mmol/L (0.02-0.27) H 10/05/16 10:00 Urine Glucose (UA) >=1000 mg/dL (Normal) H 10/12/16 13:48 Microbiology, Last 48 Hours 10/08/16 10:40 Anaerobic Culture - Final Right Foot Anaerobic Gram Negative Renato - VTE Documentation of Mechanical Device: Intermittent pneumatic compression device Consult Discharge Plan - Plan Referrals: Yesenia Daniel, EXTRUDER OPERATOR [Primary Care Provider] -
[2016-10-14 06:24] LABS: Hepatitis B Surface Antigen Nonreactive (Nonreactive)
[2016-10-14] MEDS: *HR* Heparin 5,000 UNIT/ML VIAL SQ SCH ×2 (06:43→16:42)
[2016-10-14] MEDS: Insulin LISPRO 300 UNITS/3 ML VIAL SQ SCH ×4 (08:15→20:29)
[2016-10-14] MEDS: Insulin DETEMIR 100 UNIT/ML X5UNITS SQ SCH ×2 (08:15→20:36)
[2016-10-14] MEDS: Aspirin 81 MG TAB.CHEW PO SCH (08:16)
[2016-10-14] MEDS: *HR* OxyCODONE/APAP 7.5/325 TABLET PO PRN ×3 (08:19→17:15)
--- NOTE | 2016-10-14 08:25 | Internal Med Progress Note ---
Date of Encounter: 10/14/16 Time of Encounter: 08:23 - Assessment and plan (1) Sepsis Current Visit: Yes Status: Acute Assessment and plan: Secondary to right second toe osteomyelitis/cellulitis status post amputation with gram-positive cocci bacteremia possibly contamination Resolved. Patient presented to [facility] with tachycardia, temperature of 102, an elevated lactic acid 2.5. Was started on vancomycin and Zosyn, both discontinued Received 8 days of vancomycin IV Continue Augmentin day 2 until obtaining final report of blood cultures CT scan performed on 10/07/16 showed signs concerning for osteomyelitis, podiatry was consulted and patient underwent amputation of second toe. Wound cultures were finalized from patient toe which did show pansensitive Klebsiella and Streptococcus agalactiae. 04/27 blood cultures drawn 10/05/16 preliminarily show gram-positive cocci, with prior wound culture for strep agalactiae, will cover patient for potential gram positive bacteremia with Vanco. Blood cultures on 10/09 Show NGTD Continue Pain control with Percocet 7.5/325 social work for assistance in locating resources as patient admits to being homeless Qualifiers: Sepsis type: methicillin susceptible Staphylococcus aureus Qualified Code(s ): A41.01 - Sepsis due to Methicillin susceptible Staphylococcus aureus (2) Hypokalemia Current Visit: Yes Status: Acute Assessment and plan: Repleted (3) Diabetes mellitus with neuropathy Current Visit: Yes Status: Acute Assessment and plan: Continue insulin Qualifiers: Diabetes mellitus type: type 1 Qualified Code(s): E10.40 - Type 1 diabetes mellitus with diabetic neuropathy, unspecified (4) Osteomyelitis of toe of right foot Current Visit: Yes Status: Acute Assessment and plan: plan as above (5) Bacteremia due to Gram-positive bacteria Current Visit: Yes Status: Acute Assessment and plan: awaiting final results of GPC bacteremia. Culture may be available tomorrow as it was a send out - Subjective Interval history: Continues hurting all over. Pain is 10 out of 10 mainly in his right foot, denies any chest pain, shortness of breath, no abdominal pain or dysuria. Feels weak. 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 Absent: lymphadenopathy - Respiratory Respiratory exam: Present: CTAB. Absent: accessory muscle use, rales, rhonchi, wheezes - Cardiovascular Cardiovascular exam: Present: RRR, +S1, +S2. Absent: diastolic murmur, gallop, rubs, systolic murmur - GI/Abdominal GI/Abdominal exam: Present: normal bowel sounds, soft, no peritoneal signs. Absent: distended, tenderness - Extremities Exam Extremities exam: Present: warm, radial pulses palpable and symetrical. Absent : calf tenderness, cyanotic, pedal edema - Neurological Exam Neurological exam: Present: CN II-XII intact, oriented X3, no focal deficits. Absent: pronater drift, facial droop, speech deficit - Skin Skin exam: Present: dry. Absent: intact (Right second toe surgical wound without signs of infection, covered by dressing) Internal Medicine: Result - Labs CBC & Chem 7: 10/13/16 04:44 10/13/16 04:44 - ABG Interpretation ABG results: PT/INR, D-dimer PT 11.1 Seconds (9.4-12.1) 10/05/16 10:00 - VTE Documentation of Mechanical Device: Intermittent pneumatic compression device Consult Discharge Plan - Plan Referrals: Yesneia Daniel, COLLAR FOLDER OPERATOR [Primary Care Provider] -
[2016-10-14 11:55] LABS: Hepatitis A Antibody IgM Nonreactive (Nonreactive)
[2016-10-14 15:09] LABS: Hepatitis B Core IgM Grayzone (Nonreactive)
[2016-10-14 15:10] LABS: Hepatitis C Virus Antibody Reactive (Nonreactive)
--- NOTE | 2016-10-14 16:16 | Podiatry Progress Note ---
Date of Encounter: 10/14/16 Time of Encounter: 12:00 - Assessment and Plan (1) Diabetes mellitus with neuropathy Current Visit: Yes Status: Acute Qualifiers: Diabetes mellitus type: type 1 Qualified Code(s): E10.40 - Type 1 diabetes mellitus with diabetic neuropathy, unspecified (2) Diabetic infection of right foot Current Visit: Yes Status: Acute S/p amputation of toe #2 of the right foot by Dr. Simons on 10/08/16 for osteomyelitis. All infected bone and devitalized tissue was removed in surgery, no clinical evidence of bacterial infection to remaining bone and tissue. Dressing changed at bedside, incision line well approximated, light periwound erythema, no streaking, no pus, no odor. Site irrigated with saline, pat dry, applied adaptic, 4x4 gauze and kerlix. Dressing can be changed daily while admitted. Leave dressing in place after discharge until f/u appointment with Dr. Simons. Significant improvement to right foot since surgery. Wound cultures isolated Klebsiella pneumoniae and strep agalactiae (Group B), receiving Augmentin. Blood cultures 1/2 with GPC on 10/05/16, Blood cultures from 10/09/16 NGTD. Patient to continue short cam boot to the right foot and remain protective weight bearing. F/u in Podiatry clinic with Dr. Simons with in one week of discharge from hospital. (3) Cellulitis of right toe Current Visit: Yes Status: Acute Subjective Interval history: Patient is s/p amputation of toe #[address] Simons on 10/08/16. Dressing is dry and intact to right foot. Patient states he has aches all over his body and his right foot feel swollen. Patient has right foot elevated on pillows. Patient states he does not have a home to go to once he leaves the hospital. No c/o fever, chills, n/v. Objective - Vital Signs Vital Signs: Vital Signs Temp Pulse Resp BP Pulse Ox 10/14/16 15:49 98.2 F 80 16 121/82 98 10/14/16 10:43 98.4 F 88 16 99/68 97 10/14/16 07:49 98.0 F 70 16 119/74 97 10/13/16 22:42 98.5 F 85 18 136/87 98 10/13/16 20:20 98.2 F 69 17 133/85 98 Intake and Output 10/14/16 10/14/16 10/14/16 07:59 15:59 23:59 Intake Total 360 / 360 Balance 360 / 360 Intake: Oral 360 / 360 Other: Meal Breakfast Percent of Meal Consumed 100% Blood Glucose* 268 168 - Exam Exam: General appearance: alert awake oriented X 3. Calm and pleasant, no acute distress.. Vascular: Pedal pulses +2/4 DP/PT , No evidence of cyanosis, pallor or rubor, Edema graded at 1+/4, Skin Temperature warm, No calf pain with manual compression. capillary refill time is immediate to digits. Postop Exam: S/P Sutures intact to incision line, no signs of dehiscence. Light periwound erythema, No open area, no drainage, no odor, no streaking. Minimal edema. - Lab Result Diagrams: 10/13/16 04:44 10/13/16 04:44 Labs: Abnormal lab results MPV 9.2 fL (9.4-12.4) L 10/13/16 04:44 ESR 69 mm/hr (0-10) H 10/07/16 05:38 Carbon Dioxide 31 mEq/L (19-29) H 10/13/16 04:44 Glucose 174 mg/dL (70-99) H 10/13/16 04:44 POC Glucose 110 (58-89) H 10/14/16 12:06 Hemoglobin A1c 10.2 % (-5.6) H 10/06/16 05:32 C-Reactive Protein 79 mg/L (Less than 5) H 10/05/16 10:00 Albumin 3.0 g/dL (3.5-5.0) L 10/05/16 10:00 Globulin 4.1 g/dL (2.4-3.5) H 10/05/16 10:00 Albumin/Globulin Ratio 0.7 (1.1-2.2) L 10/05/16 10:00 Beta-Hydroxybutyric Acd 0.39 mmol/L (0.02-0.27) H 10/05/16 10:00 Urine Glucose (UA) >=1000 mg/dL (Normal) H 10/12/16 13:48 Hep B Core IgM Ab [place] (Nonreactive) H 10/14/16 05:21 Hepatitis C Ab Screen Reactive (Nonreactive) H 10/14/16 05:21 Microbiology, Last 48 Hours 10/08/16 10:40 Anaerobic Culture - Final Right Foot Anaerobic Gram Negative Renato - VTE Documentation of Mechanical Device: Intermittent pneumatic compression device Consult Discharge Plan - Plan Referrals: Yesenia Daniel CNP [Primary Care Provider] -
[2016-10-15] MEDS: *HR* OxyCODONE/APAP 7.5/325 TABLET PO PRN ×3 (01:25→13:56)
[2016-10-15] MEDS ORDERED: Insulin LISPRO 300 UNITS/3 ML VIAL SQ ONE (01:34)
[2016-10-15] MEDS: *HR* Heparin 5,000 UNIT/ML VIAL SQ SCH ×2 (05:33→16:50)
[2016-10-15] MEDS: Insulin LISPRO 300 UNITS/3 ML VIAL SQ SCH ×4 (08:13→21:31)
[2016-10-15] MEDS: Aspirin 81 MG TAB.CHEW PO SCH (08:13)
[2016-10-15] MEDS: Insulin DETEMIR 100 UNIT/ML X5UNITS SQ SCH ×2 (09:01→21:32)
--- NOTE | 2016-10-15 12:36 | Internal Med Progress Note ---
Date of Encounter: 10/15/16 Time of Encounter: 12:34 - Assessment and plan (1) Sepsis Current Visit: Yes Status: Acute Assessment and plan: Secondary to right second toe osteomyelitis/cellulitis status post amputation with gram-positive cocci bacteremia possibly contamination Resolved. Patient presented to [facility] with tachycardia, temperature of 102, an elevated lactic acid 2.5. Was started on vancomycin and Zosyn, both discontinued Received 8 days of vancomycin IV Continue Augmentin day 3 until obtaining final report of blood cultures growing Staphylococcus species, sensitivity pending CT scan performed on 10/07/16 showed signs concerning for osteomyelitis, podiatry was consulted and patient underwent amputation of second toe. Wound cultures were finalized from patient toe which did show pansensitive Klebsiella and Streptococcus agalactiae. / blood cultures drawn 10/05/16 preliminarily show gram-positive cocci, with prior wound culture for strep agalactiae, will cover patient for potential gram positive bacteremia with Vanco. Blood cultures on 10/09 Show NGTD Continue Pain control with Percocet 7.5/325 social work for assistance in locating resources as patient admits to being homeless Qualifiers: Sepsis type: methicillin susceptible Staphylococcus aureus Qualified Code(s ): A41.01 - Sepsis due to Methicillin susceptible Staphylococcus aureus (2) Hypokalemia Current Visit: Yes Status: Acute Assessment and plan: Repleted (3) Diabetes mellitus with neuropathy Current Visit: Yes Status: Acute Assessment and plan: Continue insulin Qualifiers: Diabetes mellitus type: type 1 Qualified Code(s): E10.40 - Type 1 diabetes mellitus with diabetic neuropathy, unspecified (4) Osteomyelitis of toe of right foot Current Visit: Yes Status: Acute Assessment and plan: plan as above (5) Bacteremia due to Gram-positive bacteria Current Visit: Yes Status: Acute Assessment and plan: awaiting final results of GPC bacteremia. Culture may be available tomorrow as it was a send out - Subjective Interval history: Says that he does not have any place to go in does not feel right although he is not able to explain what is exactly going on with him. Feels nauseous. Continues hurting all over. Pain is 10 out of 10 mainly in his right foot, denies any chest pain, shortness of breath, no abdominal pain or dysuria. Feels weak. 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 Absent: lymphadenopathy - Respiratory Respiratory exam: Present: CTAB. Absent: accessory muscle use, rales, rhonchi, wheezes - Cardiovascular Cardiovascular exam: Present: RRR, +S1, +S2. Absent: diastolic murmur, gallop, rubs, systolic murmur - GI/Abdominal GI/Abdominal exam: Present: normal bowel sounds, soft, no peritoneal signs. Absent: distended, tenderness - Extremities Exam Extremities exam: Present: warm, radial pulses palpable and symetrical. Absent : calf tenderness, cyanotic, pedal edema - Neurological Exam Neurological exam: Present: CN II-XII intact, oriented X3, no focal deficits. Absent: pronater drift, facial droop, speech deficit - Skin Skin exam: Present: dry. Absent: intact (Right toe surgical wound without signs of hematoma or infection) Internal Medicine: Result - Labs CBC & Chem 7: 10/13/16 04:44 10/13/16 04:44 - ABG Interpretation ABG results: PT/INR, D-dimer PT 11.1 Seconds (9.4-12.1) 10/05/16 10:00 - VTE Documentation of Mechanical Device: Intermittent pneumatic compression device Consult Discharge Plan - Plan Referrals: Yesenia Daniel, [employer] [Primary Care Provider] -
[2016-10-16] MEDS: *HR* Heparin 5,000 UNIT/ML VIAL SQ SCH (05:42)
[2016-10-16] MEDS: Insulin LISPRO 300 UNITS/3 ML VIAL SQ SCH ×2 (08:33→12:30)
[2016-10-16] MEDS: Aspirin 81 MG TAB.CHEW PO SCH (08:34)
[2016-10-16] MEDS: Insulin DETEMIR 100 UNIT/ML X5UNITS SQ SCH (08:34)
[2016-10-16] MEDS: *HR* OxyCODONE/APAP 7.5/325 TABLET PO PRN (08:38)
--- NOTE | 2016-10-16 11:05 | Discharge Summary ---
Date of Encounter: 10/16/16 Time of Encounter: 11:03 - Discharge Diagnosis (1) Sepsis Priority: Primary Status: Acute Comments: Secondary to right second toe osteomyelitis/cellulitis status post amputation with Staphylococcus and Pseudomonas bacteremia possibly contamination Resolved. Qualifiers: Sepsis type: methicillin susceptible Staphylococcus aureus Qualified Code(s ): A41.01 - Sepsis due to Methicillin susceptible Staphylococcus aureus (2) Hypokalemia Priority: Secondary Status: Acute (3) Diabetes mellitus with neuropathy Priority: Secondary Status: Acute Qualifiers: Diabetes mellitus type: type 1 Qualified Code(s): E10.40 - Type 1 diabetes mellitus with diabetic neuropathy, unspecified (4) Osteomyelitis of toe of right foot Priority: Secondary Status: Acute (5) Bacteremia due to Gram-positive bacteria Priority: Primary Status: Acute - Discharge Medications Prescriptions: Ciprofloxacin [Cipro] 500 mg PO BID #13 tablet Insulin ASPART [NovoLOG] 4 units SQ TID 30 Days Insulin Glargine [Lantus] 20 units SQ BID 30 Days OxyCODONE/APAP 7.5/325 [Percocet 7.5/325 MG] 1 each PO Q6H PRN #25 tablet PRN Reason: Pain Home Medications: Aspirin 81 mg PO DAILY 10/05/16 [History] Cyclobenzaprine [Flexeril] 10 mg PO TID PRN 10/05/16 [History] Ciprofloxacin [Cipro] 500 mg PO BID #13 tablet 10/16/16 [Rx] Insulin ASPART [NovoLOG] 4 units SQ TID 30 Days 10/16/16 [Rx] Insulin Glargine [Lantus] 20 units SQ BID 30 Days 10/16/16 [Rx] OxyCODONE/APAP 7.5/325 [Percocet 7.5/325 MG] 1 each PO Q6H PRN #25 tablet [Rx] Allergies/Adverse Reactions: Allergies No Known Allergies Allergy (Verified 10/05/16 10:06) Date of admission: 10/06/16 19:01 Primary care physician: Yesenia Daniel CNP Consults: 10/07/16 13:09 Consult to Podiatry [CONS] Routine Consulting Provider: [facility] Reason for Consult: Diabetic foot ulcer to the dorsal aspect of the right 2nd toe with cellulitis - previous surgical patient of Dr. Simons and is requesting to see him Time Notified: 13:11 Call Completed: Yes 10/11/16 12:11 Consult to Occupational Therapy [CONS] Routine Comment: Evaluate, develop and implement POC Reason for Consult: imbalance Consult to Physical Therapy [CONS] Routine Comment: Evaluate, develop and implement POC Reason for Consult: imbalance 10/12/16 09:07 Consult to [facility] [CONS] Routine Reason for SW Consult: Concern for resource needs post-hospital - Patient Status Disposition: Home Health Service Condition: Good Overall status at discharge: patient is progressing back to baseline - Discharge Instructions Follow Up With: Yesenia Daniel CNP [Primary Care Provider] - Additional Instructions: Follow with primary care physician within the next 7 days. Complete 1 week of ciprofloxacin. Continue insulin at home. Follow-up with orthopedic surgery within the next week. - Diet and Activity Activity: increase activity as tolerated Diet: diabetic diet Hospital course: Mr. Martinez is a 40 year old male with past medical history of diabetes type I who noticed that his second right toe was red and edematous when he woke up. He stated that he noticed skin changes on his second right toe. He did not remember any recent trauma. He felt chills and warm sensation this morning. In our ED, he was febrile temp 102. received 3L NS, was started on Vancomycin and Zosyn. Underwent a right second toe amputation by Dr. Simons Patient presented to [facility] with tachycardia, temperature of 102, an elevated lactic acid 2.5. Was started on vancomycin and Zosyn, both discontinued Hepatitis B core IgM antibody was mckinnon zone positive and hepatitis C antibody was positive Received 8 days of vancomycin IV Augmentin day 4 final report of blood cultures showed Staphylococcus species mec A negative and Pseudomonas spacies sensitive to cipro CT scan performed on 10/07/16 showed signs concerning for osteomyelitis, podiatry was consulted and patient underwent amputation of second toe. Wound cultures were finalized from patient toe which did show pansensitive Klebsiella and Streptococcus agalactiae. 1/2 blood cultures drawn 10/05/16 preliminarily show gram-positive cocci, with prior wound culture for strep agalactiae, Blood cultures on 10/09 Show NGTD received Pain control with Percocet 7.5/325 Safe to discharge on ciprofloxacin - Time Spent with Patient Total time spent providing and/or coordinating discharge services: Greater than 30 minutes (40 min) - Constitutional Vitals: Temp Pulse Resp BP Pulse Ox 98.4 F 74 16 114/76 96 10/16/16 06:58 10/16/16 06:58 10/16/16 06:58 10/16/16 06:58 10/16/16 06:58 General appearance: Present: cooperative, A&O X 3, no acute distress, answers questions appropriately - Head Head exam: Present: atraumatic, normocephalic - Eye Eye exam: Present: PERRL, conjuntiva pink (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 Absent: lymphadenopathy - Respiratory Respiratory exam: Present: CTAB. Absent: accessory muscle use, rales, rhonchi, wheezes - Cardiovascular Cardiovascular exam: Present: RRR, +S1, +S2. Absent: diastolic murmur, gallop, rubs, systolic murmur - GI/Abdominal GI/Abdominal exam: Present: normal bowel sounds, soft, no peritoneal signs. Absent: distended, tenderness - Extremities Exam Extremities exam: Present: warm, radial pulses palpable and symetrical. Absent : calf tenderness, cyanotic, pedal edema Additional comments: Right toe surgical wound without signs of hematoma or infection - Neurological Exam Neurological exam: Present: CN II-XII intact, oriented X3, no focal deficits. Absent: pronater drift, facial droop, speech deficit - Skin Skin exam: Present: dry, intact - VTE Documentation of Mechanical Device: Intermittent pneumatic compression device
--- NOTE | 2016-10-16 11:17 | Physician Discharge Referral ---
Home Health/Hosp Referral Info Transfer to: Home Health Provider in Charge Post Discharge: PCP - Diagnosis (1) Sepsis Status: Acute (2) Hypokalemia Status: Acute (3) Diabetes mellitus with neuropathy Status: Acute (4) Osteomyelitis of toe of right foot Status: Acute (5) Bacteremia due to Gram-positive bacteria Status: Acute - Respiratory Orders Smoking Cessation: Smoking cessation has been advised. For more information, call the [employer] Quit Line at 8-300-DMVV-NOW. - Diet/Nutrition Diet/Nutrition: List: 1800 kcal diet - Activity Activity Orders: Ambulate - Services Needed Home Care Orders: Follow with primary care physician within the next 7 days. Complete 1 week of ciprofloxacin. Continue insulin at home. Follow-up with orthopedic surgery within the next week. - Transfer Medications Prescriptions: Ciprofloxacin [Cipro] 500 mg PO BID #13 tablet Insulin ASPART [NovoLOG] 4 units SQ TID 30 Days Insulin Glargine [Lantus] 20 units SQ BID 30 Days OxyCODONE/APAP 7.5/325 [Percocet 7.5/325 MG] 1 each PO Q6H PRN #25 tablet PRN Reason: Pain Home Medications: Aspirin 81 mg PO DAILY 10/05/16 [History] Cyclobenzaprine [Flexeril] 10 mg PO TID PRN 10/05/16 [History] Ciprofloxacin [Cipro] 500 mg PO BID #13 tablet 10/16/16 [Rx] Insulin ASPART [NovoLOG] 4 units SQ TID 30 Days 10/16/16 [Rx] Insulin Glargine [Lantus] 20 units SQ BID 30 Days 10/16/16 [Rx] OxyCODONE/APAP 7.5/325 [Percocet 7.5/325 MG] 1 each PO Q6H PRN #25 tablet [Rx] Allergies/Adverse Reactions: Allergies No Known Allergies Allergy (Verified 10/05/16 10:06) Certification: Further, I certify that my clinical findings support that this patient is homebound (i.e. absences from home require considerable and taxing effort and are for medical reasons or anglican services or infrequently or short duration when for other reasons) because: Homebound Reason: Patient requires assistance of a person or device to safely leave home Attestation: My signature below is to certify that this patient is under my care and that I, or nurse practitioner, or a physician's or assistant working with me, has a face-to -face encounter with this patient.
[2016-10-16 11:24] VITALS: BP 117/78
== END 2016-10-16 13:27 | disposition home health service (06) | DRG 854 ==
LOC: EMEROO 09:27 → 3NENU 09:27 → SUATTDRO 11:48 → 3NENU 12:43 → SUATTDRO 10-06 19:01
PROVIDERS: ADMIT Internal Medicine; ATTEND Internal Medicine

== ENCOUNTER 2016-12-17 06:09 | Inpatient (IN) ==
[2016-12-17] MEDS ORDERED: Insulin Human Regular 10 UNIT in 0.9 % Sodium Chloride 10 ML IV ONE (06:20)
--- NOTE | 2016-12-17 06:40 | Emergency Department Note ---
START Narrative - START START: 41 year old male who is insulin dependent diabetic states that he had had problems brining his sugar level down over the past week. Patient has a BS>500. WE will rule out DKA. Patient has IVF and insulin added for therapy now. Patient will be signed out to day team (Angie) for further evaluation and treatment.
[2016-12-17 06:48] LABS: Bilirubin,Urine Negative (Negative); Blood,Urine Negative (Negative); Clarity,Urine Clear (Clear); Color,Urine Yellow (Yellow); Glucose,Urine (UA) >=1000 mg/dL (Normal); Ketones,Urine Negative (Negative); Leukocyte Esterase,Urine Negative (Negative); Nitrite,Urine Negative (Negative); Protein,Urine Negative (Neg-Trace); Specific Gravity,Urine 1.027 (1.010-1.025); Urobilinogen,Urine Normal (Normal)
[2016-12-17] MEDS: 0.9 % Sodium Chloride 1,000 ML IVC SCH ×2 (06:52→06:54)
[2016-12-17 07:04] LABS: Basophils % 0.3 %; Eosinophils # 0.1 K/mcL (0.0-0.6); Eosinophils % 1.7 %; Hemoglobin 13.9 g/dL (12.9-16.9); Immature Granulocytes % 0.2 % (0-4); Lymphocytes # 1.7 K/mcL (0.6-4.6); Lymphocytes % 26.3 %; Mean Corpuscular HGB Conc 34.8 g/dL (31.6-35.5); Mean Corpuscular Hemoglobin 29.5 pg (28.0-33.3); Mean Corpuscular Volume 84.9 fL (83.0-100.0); Mean Platelet Volume 8.9 fL (9.4-12.4); Monocytes # 0.2 K/mcL (0.0-1.3); Monocytes % 3.5 %; Neutrophils # 4.5 K/mcL (1.6-8.9); Platelet Count 232 K/mcL (140-400); Red Blood Count 4.71 M/mcL (4.19-5.50); Red Cell Distribution Width 12.8 % (11.5-14.5); VBG PH 7.3 pH Units (7.32-7.42)
[2016-12-17 07:06] LABS: Beta-Hydroxybutyric Acid 0.35 mmol/L (0.02-0.27)
[2016-12-17] MEDS ORDERED: *HR* Morphine 2 MG/ML SYRINGE IVP ONE (07:07)
[2016-12-17 07:17] LABS: Alanine Aminotransferase 11 Units/L (0-55); Albumin 3.3 g/dL (3.5-5.0); Alkaline Phosphatase 97 Units/L (38-126); Aspartate Amino Transferase 9 Units/L (5-34); BUN/Creatinine Ratio 17 (6-26); Bilirubin,Direct 0.2 mg/dL (0.0-0.5); Blood Urea Nitrogen 21 mg/dL (8-26); Calcium 8.6 mg/dL (8.6-10.8); Carbon Dioxide 26 mEq/L (19-29); Chloride 98 mEq/L (98-109); Globulin 3.3 g/dL (2.4-3.5); Lipase 19 Units/L (8-78); Osmolality,Calculated 301 (280-300); Potassium 3.6 mEq/L (3.5-4.5); Sodium 133 mEq/L (136-145); Total Protein 6.6 g/dL (6.0-8.3); eGFR For African Americans > 60 (> 60); eGFR For Non-African Americans > 60 (> 60)
[2016-12-17 07:19] LABS: Glucose 503 mg/dL (70-99)
[2016-12-17 07:27] LABS: Bilirubin,Indirect 0.2 mg/dL (0.0-1.2); Bilirubin,Total 0.4 mg/dL (0.2-1.2)
--- NOTE | 2016-12-17 07:37 | Electrocardiograph Report ---
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
[2016-12-17 07:48] LABS: INR 0.9; Prothrombin Time 9.7 Seconds (9.4-12.1)
[2016-12-17 07:51] LABS: Activated Partial Thrombo Time 25.8 Seconds (26.0-36.0)
--- NOTE | 2016-12-17 08:01 | Emergency Department Note ---
Disposition Clinical Impression: DKA (diabetic ketoacidoses) Qualifiers: Diabetes mellitus type: type 1 Diabetes mellitus complication detail: without coma Qualified Code(s): E10.10 - Type 1 diabetes mellitus with ketoacidosis without coma Disposition: Admitted As Inpatient Condition: Good General Adult HPI - General Chief complaint: ED General Medical Stated complaint: hyperglycemia Time Seen by Provider: 12/17/16 06:12 Source: patient Mode of arrival: ambulatory Limitations: no limitations Nursing Notes Reviewed: Yes Vital Signs Reviewed: Yes - History of Present Illness HPI Narrative: 41-year-old male presents to the emergency department with concerns of hyperglycemia, persistent nausea, vomiting and generalized malaise. Patient states he has not missed any of his dosing of insulin over the past week and his medications have not changed. He states that his blood glucose has been persistently elevated over the past 3-4 days. He denies cough, fever, localized abdominal pain, dysuria, hematuria, diarrhea. Pain Scale: 0 - Related Data Home Medications Medication Instructions Recorded Confirmed Aspirin 81 mg PO DAILY 10/05/16 12/17/16 Previous Rx's Medication Instructions Recorded Insulin ASPART [NovoLOG] 0 - 20 units SQ TID PRN #1 vial 12/18/16 Insulin DETEMIR [Levemir] 30 unit SQ 2200 #0 pe 12/18/16 Insulin Glargine [Lantus] 30 units SQ 2200 #1 pe 12/18/16 Allergies Allergy/AdvReac Type Severity Reaction Status Date / Time No Known Allergies Allergy Verified 10/05/16 10:06 All systems ED: reviewed and negative except as stated. Constitutional: Reports: weakness. Denies: fever, chills Cardiovascular: Denies: chest pain, palpitations, dyspnea on exertion, orthopnea , syncope, paroxysmal nocturnal dyspnea Respiratory: Denies: cough, dyspnea, wheezes Gastrointestinal: Reports: abdominal pain, nausea, vomiting. Denies: diarrhea Genitourinary: Denies: urgency, dysuria, frequency Past Medical History - Past Medical History Attestation: Yes The following information was validated with the patient. Source: patient Medical history: Reports: diabetes, hepatitis Psychiatric history: Reports: no psych history - Social History Smoking Status: Never smoker Smokeless Tobacco Status: Yes Alcohol use: Reports: none Drug use: Reports: none Physical Exam General: Alert and in no acute distress Skin: Warm, dry, intact Head: Normocephalic and atraumatic Neck: Supple, trachea midline and no tenderness Cardiovascular: RRR, no murmur, normal perfusion Respiratory: CTAB, no wheezing, cough, or respiratory distress Musculoskeletal: Normal strength, no tenderness, swelling or deformity GI: Soft, nontender, nondistended. Bowel sounds present Neuro: A&O to person, place, time and situation. No focal deficits noted on exam Psychiatric: cooperative and appropriate mood and affect. - General Limitations: no limitations General appearance: alert, in no apparent distress Course Vital Signs Temperature 98.1 F 12/17/16 06:11 Pulse Rate 88 12/17/16 06:11 Respiratory Rate 16 12/17/16 06:11 Blood Pressure 118/78 12/17/16 06:11 O2 Sat by Pulse Oximetry 98 12/17/16 06:11 Temperature 97.5 F L 12/18/16 07:08 Pulse Rate 71 12/18/16 07:08 Respiratory Rate 15 12/18/16 07:08 Blood Pressure 120/73 12/18/16 07:08 O2 Sat by Pulse Oximetry 96 12/18/16 09:00 Oxygen Delivery Oxygen Delivery Room Air Medical Decision Making - MDM Narrative Medical decision making narrative: Patient does not have an anion gap however he does have ketones present in his blood. Patient's blood glucose is significantly elevated and he is at risk for his DKA worsening. Patient states he is comfortable with the plan for admission to the hospital for further care and evaluation. - Medical Records Medical records reviewed: Yes I reviewed the patient's medical records. - Lab Data Lab results reviewed: Yes I reviewed the patient's lab results. Result diagrams: 12/18/16 05:47 12/18/16 05:47 Lab Results 12/17/16 12/17/16 12/17/16 Range/Units 06:18 06:19 06:40 WBC (4.3-11.1) K/mcL RBC (4.19-5.50) M/mcL Hgb (12.9-16.9) g/dL Hct (37.5-50.1) % MCV (83.0-100.0) fL MCH (28.0-33.3) pg MCHC (31.6-35.5) g/dL RDW (11.5-14.5) % Plt Count (140-400) K/mcL MPV (9.4-12.4) fL Immature Gran % (0-4) % Seg Neutrophils % % Lymphocytes % % Monocytes % % Eosinophils % % Basophils % % Neutrophils # (1.6-8.9) K/mcL Lymphocytes # (0.6-4.6) K/mcL Monocytes # (0.0-1.3) K/mcL Eosinophils # (0.0-0.6) K/mcL Basophils # (0.0-0.2) K/mcL PT (9.4-12.1) Seconds INR APTT (26.0-36.0) Seconds VBG pH (7.32-7.42) pH Units VBG pCO2 (41-51) mmHg VBG pO2 (25-40) mmHg VBG HCO3 (21-27) mEq/L Sodium (136-145) mEq/L Potassium (3.5-4.5) mEq/L Chloride (98-109) mEq/L Carbon Dioxide (19-29) mEq/L BUN (8-26) mg/dL Creatinine (0.72-1.25) mg/dL Est GFR ( Amer) (> 60) Est GFR (Non-Af Amer) (> 60) BUN/Creatinine Ratio (6-26) Glucose (70-99) mg/dL POC Glucose 540 H* 524 H* (58-89) Calculated Osmolality (280-300) Calcium (8.6-10.8) mg/dL Total Bilirubin (0.2-1.2) mg/dL Direct Bilirubin (0.0-0.5) mg/dL Indirect Bilirubin (0.0-1.2) mg/dL AST (5-34) Units/L ALT (0-55) Units/L Alkaline Phosphatase (38-126) Units/L Troponin I (0-0.03) ng/mL Serum Total Protein (6.0-8.3) g/dL Albumin (3.5-5.0) g/dL Globulin (2.4-3.5) g/dL Albumin/Globulin Ratio (1.1-2.2) Lipase (8-78) Units/L Beta-Hydroxybutyric Acd (0.02-0.27) mmol/L Urine Color Yellow (Yellow) Urine Clarity Clear (Clear) Urine pH 6.0 (5.0-8.0) pH Units Ur Specific Beacon 1.027 H (1.010-1.025) Urine Protein Negative (Neg-Trace) mg/dL Urine Glucose (UA) >=1000 H (Normal) mg/dL Urine Ketones Negative (Negative) mg/dL Urine Blood Negative (Negative) Urine Nitrite Negative (Negative) Urine Bilirubin Negative (Negative) Urine Urobilinogen Normal (Normal) mg/dL Ur Leukocyte Esterase Negative (Negative) Ur Culture Indicated? NO (NO) 12/17/16 12/17/16 12/17/16 Range/Units 06:52 06:52 06:52 WBC (4.3-11.1) K/mcL RBC (4.19-5.50) M/mcL Hgb (12.9-16.9) g/dL Hct (37.5-50.1) % MCV (83.0-100.0) fL MCH (28.0-33.3) pg MCHC (31.6-35.5) g/dL RDW (11.5-14.5) % Plt Count (140-400) K/mcL MPV (9.4-12.4) fL Immature Gran % (0-4) % Seg Neutrophils % % Lymphocytes % % Monocytes % % Eosinophils % % Basophils % % Neutrophils # (1.6-8.9) K/mcL Lymphocytes # (0.6-4.6) K/mcL Monocytes # (0.0-1.3) K/mcL Eosinophils # (0.0-0.6) K/mcL Basophils # (0.0-0.2) K/mcL PT 9.7 (9.4-12.1) Seconds INR 0.9 APTT 25.8 L (26.0-36.0) Seconds VBG pH 7.30 L (7.32-7.42) pH Units VBG pCO2 57 H (41-51) mmHg VBG pO2 38 (25-40) mmHg VBG HCO3 28.0 H (21-27) mEq/L Sodium 133 L (136-145) mEq/L Potassium 3.6 (3.5-4.5) mEq/L Chloride 98 (98-109) mEq/L Carbon Dioxide 26 (19-29) mEq/L BUN 21 (8-26) mg/dL Creatinine 1.25 (0.72-1.25) mg/dL Est GFR ( Amer) > 60 (> 60) Est GFR (Non-Af Amer) > 60 (> 60) BUN/Creatinine Ratio 17 (6-26) Glucose 503 H* (70-99) mg/dL POC Glucose (58-89) Calculated Osmolality 301 H (280-300) Calcium 8.6 (8.6-10.8) mg/dL Total Bilirubin 0.4 (0.2-1.2) mg/dL Direct Bilirubin 0.2 (0.0-0.5) mg/dL Indirect Bilirubin 0.2 (0.0-1.2) mg/dL AST 9 (5-34) Units/L ALT 11 (0-55) Units/L Alkaline Phosphatase 97 (38-126) Units/L Troponin I (0-0.03) ng/mL Serum Total Protein 6.6 (6.0-8.3) g/dL Albumin 3.3 L (3.5-5.0) g/dL Globulin 3.3 (2.4-3.5) g/dL Albumin/Globulin Ratio 1.0 L (1.1-2.2) Lipase 19 (8-78) Units/L Beta-Hydroxybutyric Acd 0.35 H (0.02-0.27) mmol/L Urine Color (Yellow) Urine Clarity (Clear) Urine pH (5.0-8.0) pH Units Ur Specific Beacon (1.010-1.025) Urine Protein (Neg-Trace) mg/dL Urine Glucose (UA) (Normal) mg/dL Urine Ketones (Negative) mg/dL Urine Blood (Negative) Urine Nitrite (Negative) Urine Bilirubin (Negative) Urine Urobilinogen (Normal) mg/dL Ur Leukocyte Esterase (Negative) Ur Culture Indicated? (NO) 12/17/16 12/17/16 Range/Units 06:52 06:52 WBC 6.6 (4.3-11.1) K/mcL RBC 4.71 (4.19-5.50) M/mcL Hgb 13.9 (12.9-16.9) g/dL Hct 40.0 (37.5-50.1) % MCV 84.9 (83.0-100.0) fL MCH 29.5 (28.0-33.3) pg MCHC 34.8 (31.6-35.5) g/dL RDW 12.8 (11.5-14.5) % Plt Count 232 (140-400) K/mcL MPV 8.9 L (9.4-12.4) fL Immature Gran % 0.2 (0-4) % Seg Neutrophils % 68.0 % Lymphocytes % 26.3 % Monocytes % 3.5 % Eosinophils % 1.7 % Basophils % 0.3 % Neutrophils # 4.5 (1.6-8.9) K/mcL Lymphocytes # 1.7 (0.6-4.6) K/mcL Monocytes # 0.2 (0.0-1.3) K/mcL Eosinophils # 0.1 (0.0-0.6) K/mcL Basophils # 0.0 (0.0-0.2) K/mcL PT (9.4-12.1) Seconds INR APTT (26.0-36.0) Seconds VBG pH (7.32-7.42) pH Units VBG pCO2 (41-51) mmHg VBG pO2 (25-40) mmHg VBG HCO3 (21-27) mEq/L Sodium (136-145) mEq/L Potassium (3.5-4.5) mEq/L Chloride (98-109) mEq/L Carbon Dioxide (19-29) mEq/L BUN (8-26) mg/dL Creatinine (0.72-1.25) mg/dL Est GFR ( Amer) (> 60) Est GFR (Non-Af Amer) (> 60) BUN/Creatinine Ratio (6-26) Glucose (70-99) mg/dL POC Glucose (58-89) Calculated Osmolality (280-300) Calcium (8.6-10.8) mg/dL Total Bilirubin (0.2-1.2) mg/dL Direct Bilirubin (0.0-0.5) mg/dL Indirect Bilirubin (0.0-1.2) mg/dL AST (5-34) Units/L ALT (0-55) Units/L Alkaline Phosphatase (38-126) Units/L Troponin I 0.02 (0-0.03) ng/mL Serum Total Protein (6.0-8.3) g/dL Albumin (3.5-5.0) g/dL Globulin (2.4-3.5) g/dL Albumin/Globulin Ratio (1.1-2.2) Lipase (8-78) Units/L Beta-Hydroxybutyric Acd (0.02-0.27) mmol/L Urine Color (Yellow) Urine Clarity (Clear) Urine pH (5.0-8.0) pH Units Ur Specific Beacon (1.010-1.025) Urine Protein (Neg-Trace) mg/dL Urine Glucose (UA) (Normal) mg/dL Urine Ketones (Negative) mg/dL Urine Blood (Negative) Urine Nitrite (Negative) Urine Bilirubin (Negative) Urine Urobilinogen (Normal) mg/dL Ur Leukocyte Esterase (Negative) Ur Culture Indicated? (NO) - Radiology Data Radiology results reviewed: Yes I reviewed the patient's radiology results. - EKG Data EKG #1 EKG attestation: Yes I reviewed and interpreted this EKG. EKG results narrative: ECG - interpreted by ED physician. Rate 89, normal sinus rhythm, no STEMI, CT, QT intervals, and QRS within normal limits
[2016-12-17] MEDS ORDERED: 0.9 % Sodium Chloride 1,000 ML IVC ONE (08:05)
[2016-12-17] MEDS ORDERED: Acetaminophen 325 MG TABLET PO PRN (09:10)
[2016-12-17] MEDS ORDERED: *HR* Promethazine 25 MG/ML VIAL IVP PRN (09:10)
[2016-12-17] MEDS ORDERED: Naloxone 0.4 MG/ML INJ IVP PRN (09:10)
[2016-12-17] MEDS ORDERED: Ondansetron 4 MG/2 ML VIAL IVP PRN (09:10)
--- NOTE | 2016-12-17 09:37 | Internal Med History&Physical ---
<Justin Daley - Last Filed: 12/17/16 17:52> Date of Encounter: 12/17/16 Time of Encounter: 09:35 Assessment and Plan (1) Hyperglycemia due to type 1 diabetes mellitus Current visit: Yes Status: Acute upon arrival to ED, patient had blood glucose of 503 and states his blood glucose as been over 600 at home in the past few days. beta hydroxybutyric acid .35 Anion gap: 9 does not appear to be in DKA No obvious source of infection identified. Etiology likely secondary to recent social stress. In ED, patient received 3L fluid bolus and 10 units humulin repeat blood glucose is 222 Plan: continue home dose basal insulin low dose SSI with ACHS accuchecks ADA diet patient will need close follow up outpatient will need member services coordinator referral upon discharge chec A1C with morning labs. last A1C 10.2 in september. (2) Diabetic neuropathy Current visit: Yes Status: Acute plan as above. Qualifiers: Diabetes mellitus type: type 1 Diabetes mellitus complication detail: diabetic polyneuropathy Qualified Code(s): E10.42 - Type 1 diabetes mellitus with diabetic polyneuropathy (3) Hepatitis C Current visit: Yes Status: Acute by history Qualifiers: Viral hepatitis chronicity: chronic Hepatic coma status: without hepatic coma Qualified Code(s): B18.2 - Chronic viral hepatitis C (4) DVT prophylaxis Current visit: No Status: Acute heparin SQ Internal Medicine - H&P: HPI Chief complaint: hyperglycemia Admitted From: Emergency Dept Plans for Post Hospital Care: Home History of present illness: Mr. 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 patient arrived to ED today with chief complaint of high blood glucose. He states that at home his glucometer measured his blood glucose to be over 600, and his glucometer has had this reading for about the past two days. since Wednesday, his sugars have been averaging between 300-500. He has not been eating or drinking well since wednesday due to nausea. He reports polydipsia and polyuria, and feels extremely tired. He states that he has been so tired that he slept all day yesterday. He used to see member services coordinator Dr. Solorzano, but has not seen him for the last 4-[address] Solorzano has retired. Patient admits to nausea with dry heaves, but denies vomiting or diarrhea. he reports subjective fever and chills. he denies chest pain, shortness of breath, cough, and sputum production. he denies burning with urination. he also denies hematuria or hematochezia but does report dark stools. He states he recentl had a surgery in September with amputation of his second toe on his right foot. He states that overall , he has been under a lot of stress recently because he has been having trouble trying to find a place to live. his landlord sold his house, and he needs to find a place to live by the end of the month and is having trouble doing so. he denies any further issues today. Past Med Surg Social Fam HX - Past Medical History Medical history: diabetes, hepatitis Psychiatric history: no psych history - Social History Smoking Status: Never smoker Smokeless Tobacco Status: Yes Alcohol use: none Drug use: none - Family History Mother Hx Family Cardiac Disorders: Yes (htn) Internal Medicine - H&P: Meds Aspirin 81 mg PO DAILY 10/05/16 [History] Insulin ASPART [NovoLOG] 0 - 20 units SQ TID PRN 12/17/16 [History] Insulin Glargine [Lantus] 30 units SQ 2200 12/17/16 [History] 3 Allergy/AdvReac Type Severity Reaction Status Date / Time No Known Allergies Allergy Verified 10/05/16 10:06 All Systems PM: A 10-system review of systems was performed and is negative for pertinent findings except as documented above in the HPI. - Constitutional Constitutional: as per HPI - EENT Eyes: as per HPI Ears: as per HPI Nose, mouth and throat: as per HPI - Breasts Breasts: as per HPI - Cardiovascular Cardiovascular ROS IM: as per HPI - Respiratory Respiratory: as per HPI - Gastrointestinal Gastrointestinal: as per HPI - Genitourinary Genitourinary ROS male: as per HPI - Musculoskeletal Musculoskeletal ROS IM: as per HPI - Integumentary Integumentary IM: as per HPI - Neurological Neurological ROS: as per HPI - Psychiatric Psychiatric: as per HPI - Endocrine Endocrine IM: as per HPI - Hematologic/Lymphatic Hematologic/Lymphatic: as per HPI - Allergic/Immunologic Allergic/Immunologic: as per HPI - Constitutional Vitals: Temp Pulse Resp BP Pulse Ox 98.1 F 87 16 116/82 97 12/17/16 06:11 12/17/16 08:05 12/17/16 09:12 12/17/16 09:12 12/17/16 08:05 General appearance: Present: A&O X 3, pleasant, no acute distress, answers questions appropriately - Head Head exam: Present: atraumatic, normocephalic - Neck Neck exam general surgery: Present: supple, trachea midline - Respiratory Respiratory exam: Present: CTAB - Cardiovascular Cardiovascular exam: Present: RRR, +S1, +S2 - GI/Abdominal GI/Abdominal exam: Present: normal bowel sounds, soft. Absent: distended, tenderness - Extremities Exam Additional comments: bilateral decreased sensation in lower extremities. right first and second toe are amputated. first toe nail on left foot is black. - Neurological Exam Neurological exam: Present: alert, oriented X3, no focal deficits Internal Med - H&P Results - Labs CBC & Chem 7: 12/17/16 06:52 12/17/16 06:52 <Magdiel James P - Last Filed: 12/17/16 18:45> Date of Encounter: 12/17/16 Internal Medicine - H&P: HPI History of present illness: Mr. Martinez is a 41 year old male All Systems PM: A 10-system review of systems was performed and is negative for pertinent findings except as documented above in the HPI. - Constitutional Vitals: Temp Pulse Resp BP Pulse Ox 97.6 F 83 14 116/68 96 12/17/16 16:11 12/17/16 16:11 12/17/16 16:11 12/17/16 16:11 12/17/16 16:11 Internal Med - H&P Results - Labs CBC & Chem 7: 12/17/16 06:52 12/17/16 06:52 - Attending Attestation I examined this patient and my medical decision-making was reviewed with the Resident Physician. I agree with the documented findings, disposition and treatment plan as described except to the extent set forth below.
[2016-12-17] MEDS ORDERED: D5% in Water 1,000 ML IVC PRN (09:40)
[2016-12-17] MEDS ORDERED: *HR* Dextrose 50 % in Water (Syg) 50 ML SYRINGE IVP PRN (09:40)
[2016-12-17] MEDS ORDERED: Dextrose Gel 15 GM PO PRN ×2 (09:40)
[2016-12-17] MEDS ORDERED: Insulin LISPRO 300 UNITS/3 ML VIAL SQ SCH ×3 (11:30→21:00)
[2016-12-17] MEDS: *HR* OxyCODONE/APAP 7.5/325 TABLET PO PRN ×2 (12:01→19:40)
[2016-12-17] MEDS: Insulin LISPRO 300 UNITS/3 ML VIAL SQ SCH ×2 (12:02→17:09)
[2016-12-17] MEDS: Aspirin 81 MG TAB.CHEW PO SCH (12:02)
[2016-12-17] MEDS: *HR* Heparin 5,000 UNIT/ML VIAL SQ SCH (19:05)
[2016-12-17] MEDS ORDERED: INSULIN GLARGINE 30 UNIT SQ SCH (22:00)
[2016-12-17] MEDS ORDERED: Insulin DETEMIR 100 UNIT/ML X5UNITS SQ SCH (22:00)
[2016-12-18] MEDS: *HR* OxyCODONE/APAP 7.5/325 TABLET PO PRN ×2 (01:56→08:44)
[2016-12-18] MEDS ORDERED: *HR* Morphine 2 MG/ML SYRINGE IVP ONE (03:43)
[2016-12-18] MEDS: *HR* Heparin 5,000 UNIT/ML VIAL SQ SCH (05:48)
[2016-12-18 06:04] LABS: Basophils # 0.1 K/mcL (0.0-0.2); Basophils % 0.9 %; Eosinophils # 0.4 K/mcL (0.0-0.6); Eosinophils % 6.1 %; Hematocrit 40.1 % (37.5-50.1); Hemoglobin 13.4 g/dL (12.9-16.9); Lymphocytes # 2.1 K/mcL (0.6-4.6); Lymphocytes % 37.1 %; Mean Corpuscular HGB Conc 33.4 g/dL (31.6-35.5); Mean Corpuscular Hemoglobin 29.4 pg (28.0-33.3); Mean Corpuscular Volume 87.9 fL (83.0-100.0); Mean Platelet Volume 9.2 fL (9.4-12.4); Monocytes # 0.4 K/mcL (0.0-1.3); Monocytes % 7.5 %; Neutrophils # 2.8 K/mcL (1.6-8.9); Platelet Count 213 K/mcL (140-400); Red Blood Count 4.56 M/mcL (4.19-5.50); Red Cell Distribution Width 13.1 % (11.5-14.5); Segmented Neutrophils % 48.4 %
[2016-12-18 06:20] LABS: Hemoglobin A1C 9.4 %
[2016-12-18 06:22] LABS: BUN/Creatinine Ratio 14 (6-26); Blood Urea Nitrogen 13 mg/dL (8-26); Calcium 8.8 mg/dL (8.6-10.8); Carbon Dioxide 29 mEq/L (19-29); Chloride 105 mEq/L (98-109); Chol/HDL Ratio 7.1 (0-4.9); Cholesterol 192 mg/dL (< 200); Glucose 116 mg/dL (70-99); HDL Cholesterol 27 mg/dL (40-59); LDL Cholesterol,Calculated 129 mg/dL (0-99); Osmolality,Calculated 289 (280-300); Potassium 4.1 mEq/L (3.5-4.5); Sodium 139 mEq/L (136-145); Triglycerides 181 mg/dL (< 150); eGFR For African Americans > 60 (> 60); eGFR For Non-African Americans > 60 (> 60)
[2016-12-18 07:12] VITALS: BP 120/73
[2016-12-18] MEDS: Insulin LISPRO 300 UNITS/3 ML VIAL SQ SCH ×2 (08:30→12:08)
[2016-12-18] MEDS: Aspirin 81 MG TAB.CHEW PO SCH (08:44)
--- NOTE | 2016-12-18 11:32 | Discharge Summary ---
Date of Encounter: 12/18/16 Time of Encounter: 11:30 - Discharge Diagnosis (1) Diabetes mellitus Priority: Primary Status: Acute Qualifiers: Diabetes mellitus type: type 1 Diabetes mellitus complication status: with neurologic complications Diabetes mellitus complication detail: with polyneuropathy Qualified Code(s): E10.42 - Type 1 diabetes mellitus with diabetic polyneuropathy (2) Hepatitis C Priority: Secondary Status: Chronic Qualifiers: Viral hepatitis chronicity: chronic Hepatic coma status: without hepatic coma Qualified Code(s): B18.2 - Chronic viral hepatitis C - Discharge Medications Prescriptions: Insulin ASPART [NovoLOG] 0 - 20 units SQ TID PRN #1 vial PRN Reason: SLIDING SCALE Insulin Glargine [Lantus] 30 units SQ 2200 #1 pe Home Medications: Aspirin 81 mg PO DAILY 10/05/16 [History] Insulin ASPART [NovoLOG] 0 - 20 units SQ TID PRN #1 vial 12/18/16 [Rx] Insulin DETEMIR [Levemir] 30 unit SQ 2200 #0 pe 12/18/16 [Rx] Insulin Glargine [Lantus] 30 units SQ 2200 #1 pe 12/18/16 [Rx] Allergies/Adverse Reactions: 3 Allergy/AdvReac Type Severity Reaction Status Date / Time No Known Allergies Allergy Verified 10/05/16 10:06 Date of admission: 12/17/16 09:10 Primary care physician: PCP NONE Consults: 12/18/16 09:12 Consult to Wire Harness Assembler [CONS] Routine Reason for SW Consult: Possible homeless Discharging clinician: Surjit Jerez Anticipated date of discharge: 12/18/16 - Patient Status Disposition: Home, Self-Care Condition: Good Functional capacity at discharge: independent ambulation Overall status at discharge: patient is back to baseline - Discharge Instructions Follow Up With: Cassandra Herrera, ELECTRONIC ORGAN TECHNICIAN [Advanced Practice Nurse] - Additional Instructions: pcp requested - Diet and Activity Activity: increase activity as tolerated, resume usual activities as tolerated Diet: diabetic diet Hospital course: Mr. Martinez is a 41 year old male with history of type 1 diabetes mellitus who uses 30 units of basal Lantus at bedtime and NovoLog pre-meal and sliding scale presented to the emergency room due to 2 days of elevated blood sugars at 500 and associated with nausea. He was admitted to the hospital and resumed on his home dose of medications. With his home dose of medications, his morning blood sugar was in the 80s to 110. He is able to tolerate by mouth diet. His nausea and vomiting have resolved. Hence, he has been deemed stable to be discharged back home. The patient currently lives in an apartment and he has been instructed by his landlord to make it in a week. He has been seen by manager social to discuss options available to him including shelters. Patient also stated that he does not have enough food. He was instructed regarding food stamp applications. The patient takes by mouth pain medications for neuropathy. These are being given to him by his primary care physician. He has been instructed to follow- up with his primary care physician regarding the same. He has been given refills for Lantus, NovoLog. - Time Spent with Patient Total time spent providing and/or coordinating discharge services: - Constitutional Vitals: Temp Pulse Resp BP Pulse Ox 97.5 F L 71 15 120/73 96 12/18/16 07:08 12/18/16 07:08 12/18/16 07:08 12/18/16 07:08 12/18/16 07:08 General appearance: Present: A&O X 3, pleasant, no acute distress, answers questions appropriately - Respiratory Respiratory exam: Present: CTAB. Absent: accessory muscle use, rales, rhonchi, wheezes
== END 2016-12-18 15:12 | disposition home or self-care (01) | DRG 639 ==
LOC: EMEROO 06:09 → 2NENU 06:09 → SUATTDRO 09:10 → 2NENU 09:21
PROVIDERS: ADMIT Internal Medicine; ATTEND Internal Medicine Sleep Medicine

== ENCOUNTER 2017-05-09 15:08 | Inpatient (IN) ==
--- NOTE | 2017-05-09 10:02 | Internal Med History&Physical ---
Date of Encounter: 05/09/17 Time of Encounter: 09:57 Assessment and Plan (1) Cellulitis of right toe Current visit: No Status: Acute Cellulitis of right third toe. 41-year-old male, known to have her type 1 diabetes, noncompliant with medication. Admitted with the right third toe cellulitis/possible osteomyelitis. Evaluated in a [facility] emergency room and transferred here for further management. Assessment: Right third toe cellulitis/osteomyelitis in an uncontrolled type I diabetic patient likely secondary to noncompliance Plan: Admit as inpatient: Need intravenous antibiotics/possible surgical evaluation and further plan as per surgery/podiatry. Diabetic diet. Restart home dose insulin/sliding scale. Check blood sugar ACHS. Blood culture/lactic acid redraw. IV vancomycin. IV Zosyn. Podiatry consult. I personally spoke with and he agreed to see patient tomorrow. Radiological imaging was done and a [facility] and there is no need of any further radiological examination till evaluation by podiatry DVT prophylaxis: Heparin All above plan explained to the patient and he verbalized understanding. (2) Diabetes mellitus with neuropathy Current visit: No Status: Acute As above Qualifiers: Diabetes mellitus type: type 1 Qualified Code(s): E10.40 - Type 1 diabetes mellitus with diabetic neuropathy, unspecified (3) Elevated lactic acid level Current visit: No Status: Acute As above (4) DVT prophylaxis Current visit: No Status: Acute Heparin Medical decision making: This patient has a moderately severe risk of worsening in spite of being on appropriate treatment/consult in view of underlying complex medical condition. Internal Medicine - H&P: HPI Chief complaint: right third toe infection Admitted From: Hospital to Hospital Transfer Plans for Post Hospital Care: Home History of present illness: PCP: No PCP listed in a care team. 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 History of present medical illness: This patient was presented to the [facility] emergency room. Noted that patient is legally blind and has type 1 diabetes mellitus. Apparently he hit his right foot against the bathtub on a Wednesday night and since then he was getting persistent pain in his right great toe. Patient went to [facility] emergency room and was evaluated by ER physician. Patient was complaining of generalized weakness/fatigue and fever. Noted that patient's white blood cell count was elevated to 13.4 with normal electrolytes. Patient's lactic acid was 4.4. [facility] emergency room physician spoke with the [facility] hospitalist and requested transfer. Reason for transfer: Right third toe cellulitis/osteomyelitis in a patient who has uncontrolled type 1 diabetes mellitus with history of previous right great toe and second toe amputation. Family history: Noncontributory Past Med Surg Social Fam HX - Past Medical History Medical history: diabetes, hepatitis Psychiatric history: no psych history - Social History Smoking Status: Never smoker Smokeless Tobacco Status: Yes Alcohol use: none Drug use: none - Family History Mother Hx Family Cardiac Disorders: Yes (htn) Internal Medicine - H&P: Meds Aspirin 81 mg PO DAILY 10/05/16 [History] Insulin ASPART [NovoLOG] 0 - 20 units SQ TID PRN #1 vial 12/18/16 [Rx] Insulin Glargine [Lantus] 30 units SQ 2200 #1 pe 12/18/16 [Rx] 3 Allergy/AdvReac Type Severity Reaction Status Date / Time No Known Allergies Allergy Verified 05/09/17 03:58 All Systems PM: A 10-system review of systems was performed and is negative for pertinent findings except as documented above in the HPI. - Constitutional Constitutional: no chills, no fever(s), no night sweats - EENT Eyes: no change in vision, no discharge, no pain, no photophobia Ears: no ear discharge, no ear pain, no tinnitus Nose, mouth and throat: no dysphagia, no nasal discharge, no neck pain, no sore throat - Cardiovascular Cardiovascular ROS IM: no chest pain, no diaphoresis, no dyspnea, no lightheadedness, no palpitations, no syncope - Respiratory Respiratory: no cough, no dyspnea, no wheezing, no excessive phlegm production - Gastrointestinal Gastrointestinal: no abdominal pain, no diarrhea, no hematemesis, no hematochezia, no melena, no nausea, no vomiting - Musculoskeletal Musculoskeletal ROS IM: no numbness, no tingling - Integumentary Integumentary IM: no rash, no unusual bruising - Neurological Neurological ROS: no confusion, no convulsions, no focal weakness, no numbness, no tingling, no tremor(s) - Hematologic/Lymphatic Hematologic/Lymphatic: no easy bruising - Head Head exam: Present: atraumatic, normocephalic - Eye Eye exam: Present: PERRL, conjuntiva pink, sclera anicteric Pupils: Present: PERRL - Neck Neck exam general surgery: Present: supple, trachea midline. Absent: lymphadenopathy - Respiratory Respiratory exam: Present: CTAB. Absent: accessory muscle use, rales, rhonchi, wheezes - Cardiovascular Cardiovascular exam: Present: RRR, +S1, +S2. Absent: diastolic murmur, gallop, rubs, systolic murmur - GI/Abdominal GI/Abdominal exam: Present: normal bowel sounds, soft, no peritoneal signs. Absent: distended, tenderness - Extremities Exam Extremities exam: Present: warm, radial pulses palpable and symmetrical. Absent : calf tenderness, cyanotic, pedal edema Additional comments: Right third toe is very angry looking, swollen and dripping pus noted from the toe. Patient is unable to allow me to examine this extremity. He insists that only and Dr. Sanders should touch his foot. - Neurological Exam Neurological exam: Present: CN II-XII intact, oriented X3, no focal deficits. Absent: pronater drift, facial droop, speech deficit - Skin Skin exam: Present: dry, intact
[2017-05-09 10:27] LABS: Basophils % 0.3 %; Eosinophils # 0.1 K/mcL (0.0-0.6); Eosinophils % 0.6 %; Hematocrit 35.9 % (37.5-50.1); Immature Granulocytes % 0.4 % (0-4); Lymphocytes % 19.2 %; Mean Corpuscular HGB Conc 33.4 g/dL (31.6-35.5); Mean Corpuscular Hemoglobin 30.2 pg (28.0-33.3); Mean Corpuscular Volume 90.4 fL (83.0-100.0); Mean Platelet Volume 9.3 fL (9.4-12.4); Monocytes % 9.9 %; Neutrophils # 7.2 K/mcL (1.6-8.9); Platelet Count 283 K/mcL (140-400); Red Blood Count 3.97 M/mcL (4.19-5.50); Red Cell Distribution Width 12.5 % (11.5-14.5); Segmented Neutrophils % 69.6 %
[2017-05-09 10:42] LABS: Alanine Aminotransferase 5 Units/L (7-52); Albumin 2.6 g/dL (3.5-5.7); Albumin/Globulin Ratio 0.8 (1.1-2.2); Alkaline Phosphatase 73 Units/L (34-104); Aspartate Amino Transferase 10 Units/L (13-39); BUN/Creatinine Ratio 7 (6-26); Bilirubin,Total 0.3 mg/dL (0.3-1.0); Blood Urea Nitrogen 6 mg/dL (6-20); Carbon Dioxide 30 mEq/L (23-29); Chloride 106 mEq/L (98-107); Globulin 3.1 g/dL (2.4-3.5); Glucose 100 mg/dL (70-105); Osmolality,Calculated 284 (280-300); Potassium 3.8 mEq/L (3.5-5.1); Sodium 138 mEq/L (136-145); Total Protein 5.7 g/dL (6.4-8.9); eGFR For African Americans > 60 (> 60); eGFR For Non-African Americans > 60 (> 60)
[2017-05-09] MEDS: Piperacillin/Tazobactam 3.375 GM/200 ML BAG IVPB SCH ×2 (12:29→18:20)
--- NOTE | 2017-05-09 12:30 | Podiatry Consult Note ---
Date of Encounter: 05/09/17 Time of Encounter: 11:50 Assessment and Plan (1) Diabetic infection of right foot Current visit: Yes Status: Acute Reviewed with patient his condition, my findings and his treatment options. Patient refused surgical intervention by me, although he was made aware that I am capable of doing required procedures for his problems, he says he is going to wait for Dr. Simons to come in to see him and operate on him. He says he will not have anyone else operating on him except Dr. Simons. c/w antibiotics. Sterile dressing applied. recommend ID consult. History of Present Illness HPI: Mr. Martinez is a 41 year old diabetic male who has had previous amputation of right foot digits 1 and 2 with the second digit being amputated this past summer. He says Wednesday evening he was getting up in the middle the night to go to the bathroom and he was barefoot and as he was going into the bathroom he kicked the bathroom door. He says he does not have much feeling in his foot however this hurt quite a bit. He went back to bed and woke up in the afternoon and says that his toe was turning dark and it was very swollen. He says later he developed a fever. He says he did not have anyone to bring him to the hospital and he eventually called an ambulance which he says would not bring him to [facility] but took him to [facility] in [place]. I received a call from the ER in [place] saying they were sending this patient to [facility] with a diabetic foot infection and he needed to be seen. I saw the patient this a.m. When I walked in the room, I identified myself and why I was there to see the patient and he says that he appreciates that I have come, however, he says I know I need to have this toe amputated and Dr. Simons is the only one that is going to do surgery on him and Dr. Simons according to the patient says he was notified that he was here this morning. The patient says Dr. Simons is a friend of their family and has taken care of him for over a decade. Past Med Surg Social Fam HX - Past Medical History Medical history: diabetes, hepatitis Psychiatric history: no psych history - Social History Smoking Status: Never smoker Smokeless Tobacco Status: Yes Alcohol use: none Drug use: none - Family History Mother Hx Family Cardiac Disorders: Yes (htn) Medications and Allergies Aspirin 81 mg PO DAILY 10/05/16 [History] Insulin ASPART [NovoLOG] 0 - 20 units SQ TID PRN #1 vial 12/18/16 [Rx] Insulin Glargine [Lantus] 30 units SQ 2200 #1 pe 12/18/16 [Rx] 3 Allergy/AdvReac Type Severity Reaction Status Date / Time No Known Allergies Allergy Verified 05/09/17 03:58 All Systems Reviewed: A 10-system review of systems was performed and is negative for pertinent findings except as documented above in the HPI. - Constitutional Constitutional: as per HPI, fever(s) - Cardiovascular Cardiovascular: no chest pain, no dyspnea - Respiratory Respiratory: no dyspnea - Musculoskeletal Musculoskeletal: joint swelling, numbness Physical Exam - Constitutional Vitals: Temp Pulse Resp BP Pulse Ox 98.4 F 82 18 114/63 98 05/09/17 09:30 05/09/17 09:30 05/09/17 09:30 05/09/17 09:30 05/09/17 09:30 Exam: well developed and nourished male in no acute distress Fourth and fifth digit capillary refill time less than 3 seconds. Right third digit is edematous with ulceration dorsally and laterally, could not express purulence this morning. Distal half of the digit is cool to touch and has cyanotic changes. Proximal third digit and onto the dorsum of the foot there is some faint erythema. No sensation to touch of digits. No crepitus. Results - Labs Result Diagrams: 05/09/17 10:07 05/09/17 10:07 Labs: Abnormal lab results RBC 3.97 M/mcL (4.19-5.50) L 05/09/17 10:07 Hgb 12.0 g/dL (12.9-16.9) L 05/09/17 10:07 Hct 35.9 % (37.5-50.1) L 05/09/17 10:07 MPV 9.3 fL (9.4-12.4) L 05/09/17 10:07 Carbon Dioxide 30 mEq/L (23-29) H 05/09/17 10:07 POC Glucose 91 (58-89) H 05/09/17 10:03 Calcium 8.0 mg/dL (8.6-10.3) L 05/09/17 10:07 AST 10 Units/L (13-39) L 05/09/17 10:07 ALT 5 Units/L (7-52) L 05/09/17 10:07 Serum Total Protein 5.7 g/dL (6.4-8.9) L 05/09/17 10:07 Albumin 2.6 g/dL (3.5-5.7) L 05/09/17 10:07 Albumin/Globulin Ratio 0.8 (1.1-2.2) L 05/09/17 10:07 H & H 05/09/17 Range/Units 10:07 Hgb 12.0 L (12.9-16.9) g/dL Hct 35.9 L (37.5-50.1) % All other labs normal. Consult Discharge Plan - Plan Referrals: Carlton Alcaraz [Primary Care Provider] -
[2017-05-09] MEDS: Insulin LISPRO 300 UNITS/3 ML VIAL SQ SCH ×2 (13:04→17:21)
[~2017-05-09 15:08] MED LIST: *HR* Morphine 2 MG/ML SYRINGE IVP PRN; 0.9 % Sodium Chloride 1,000 ML IVC SCH; D5% in Water 1,000 ML IVC PRN; Dextrose Gel 15 GM/37.5 ML TUBE PO PRN; INSULIN ASPART SQ PRN; Naloxone 0.4 MG/ML INJ IVP PRN
[2017-05-09] MEDS: *HR* Morphine 2 MG/ML SYRINGE IVP PRN ×2 (17:04→22:03)
[2017-05-09] MEDS: Vancomycin 1,250 MG in D5% in Water 250 ML IVPB SCH (17:16)
[2017-05-09] MEDS ORDERED: Insulin DETEMIR 100 UNIT/ML X5UNITS SQ SCH (21:00)
[2017-05-09] MEDS ORDERED: Ondansetron 4 MG/2 ML VIAL IVP PRN (22:42)
[2017-05-10] MEDS: Piperacillin/Tazobactam 3.375 GM/200 ML BAG IVPB SCH ×3 (03:08→18:15)
[2017-05-10] MEDS: *HR* Morphine 2 MG/ML SYRINGE IVP PRN ×2 (04:18→08:53)
[2017-05-10 04:41] LABS: Basophils % 0.5 %; Eosinophils # 0.2 K/mcL (0.0-0.6); Eosinophils % 2.1 %; Hematocrit 37.4 % (37.5-50.1); Hemoglobin 12.3 g/dL (12.9-16.9); Immature Granulocytes % 0.2 % (0-4); Lymphocytes # 1.8 K/mcL (0.6-4.6); Lymphocytes % 20.7 %; Mean Corpuscular HGB Conc 32.9 g/dL (31.6-35.5); Mean Corpuscular Hemoglobin 30.3 pg (28.0-33.3); Mean Corpuscular Volume 92.1 fL (83.0-100.0); Mean Platelet Volume 9.6 fL (9.4-12.4); Monocytes # 0.8 K/mcL (0.0-1.3); Monocytes % 8.7 %; Neutrophils # 5.9 K/mcL (1.6-8.9); Platelet Count 278 K/mcL (140-400); Red Blood Count 4.06 M/mcL (4.19-5.50); Red Cell Distribution Width 12.6 % (11.5-14.5); Segmented Neutrophils % 67.8 %
[2017-05-10 04:52] LABS: INR 1.1; Prothrombin Time 11.3 Seconds (9.4-12.1)
[2017-05-10 04:54] LABS: Activated Partial Thrombo Time 27.2 Seconds (26.0-36.0)
[2017-05-10 04:59] LABS: Alanine Aminotransferase 6 Units/L (7-52); Albumin 2.8 g/dL (3.5-5.7); Albumin/Globulin Ratio 0.8 (1.1-2.2); Alkaline Phosphatase 79 Units/L (34-104); Aspartate Amino Transferase 7 Units/L (13-39); BUN/Creatinine Ratio 7 (6-26); Bilirubin,Total 0.3 mg/dL (0.3-1.0); Blood Urea Nitrogen 6 mg/dL (6-20); Calcium 8.4 mg/dL (8.6-10.3); Carbon Dioxide 31 mEq/L (23-29); Chloride 101 mEq/L (98-107); Chol/HDL Ratio 5.5 (0-4.9); Cholesterol 127 mg/dL (< 200); Globulin 3.4 g/dL (2.4-3.5); Glucose 235 mg/dL (70-105); HDL Cholesterol 23 mg/dL (40-59); LDL Cholesterol,Calculated 77 mg/dL (0-99); Magnesium 1.8 mg/dL (1.6-2.6); Osmolality,Calculated 287 (280-300); Phosphorous 2.2 mg/dL (2.7-4.5); Potassium 4.1 mEq/L (3.5-5.1); Sodium 136 mEq/L (136-145); Total Protein 6.2 g/dL (6.4-8.9); Triglycerides 136 mg/dL (< 150); eGFR For African Americans > 60 (> 60); eGFR For Non-African Americans > 60 (> 60)
[2017-05-10] MEDS: Vancomycin 1,250 MG in D5% in Water 250 ML IVPB SCH (06:28)
[2017-05-10] MEDS: Insulin LISPRO 300 UNITS/3 ML VIAL SQ SCH ×3 (08:52→15:32)
[2017-05-10] MEDS ORDERED: Aspirin 81 MG TAB.CHEW PO SCH ×2 (09:00→21:00)
--- NOTE | 2017-05-10 09:43 | Podiatry Progress Note ---
Date of Encounter: 05/10/17 Time of Encounter: 08:45 - Assessment and Plan (1) Diabetic infection of right foot Current Visit: Yes Status: Acute Toe #3 right foot necrotic with cellulitis. WBC: 8.7, Temp of 101.3, continue with antibiotic therapy. Dr. Simons to plan on taking patient to surgery today (05/10/17) for an amputation of toe #3 right foot. NPO now. Will continue to follow patient closely. (2) Cellulitis of right toe Current Visit: No Status: Acute (3) Diabetes mellitus with neuropathy Current Visit: No Status: Acute Qualifiers: Diabetes mellitus type: type 1 Qualified Code(s): E10.40 - Type 1 diabetes mellitus with diabetic neuropathy, unspecified (4) Hepatitis C Current Visit: No Status: Chronic Qualifiers: Viral hepatitis chronicity: chronic Hepatic coma status: without hepatic coma Qualified Code(s): B18.2 - Chronic viral hepatitis C Subjective Interval history: Patient is sitting up in bed eating breakfast. Dressing intact to right foot with small amount of drainage observed to dressing. Patient states his right foot is very painful and rates it a 9 out of 10. Patient was evaluated by Dr. Coffman yesterday. Patient states he only wants surgery done by Dr. Simons. Patient admits to fever and chills overnight. Objective - Vital Signs Vital Signs: Vital Signs Temp Pulse Resp BP Pulse Ox 05/10/17 06:55 101.3 F H 83 17 105/63 93 05/10/17 00:13 98.8 F 81 16 119/66 95 05/09/17 19:55 98.5 F 78 16 126/66 97 Intake and Output 05/09/17 05/10/17 05/10/17 23:59 07:59 15:59 Intake Total 650 / 650 Output Total 1800 / 1800 0 / 0 375 / 375 Balance -1150 / -1150 0 / 0 -375 / -375 Intake: IV Fluids 650 / 650 Zosyn Premix 3.375 GM/200 ML 3. 400 / 400 375 gm In 200 ml @ 50 mls/hr IVPB Q8H THUY Rx#:[id number] Vancocin 1,250 MG In Dextrose 5 250 / 250 % 250 ML @ 167 mls/hr IVPB Q12H THUY Rx#:[id number] Output: Urine 1800 / 1800 0 / 0 375 / 375 Other: Weight 79.6 kg Blood Glucose* 217 213 Patient Weight 05/10/17 23:59 Weight 79.6 kg - Exam Exam: General appearance: alert awake oriented X 3. Calm and pleasant, no acute distress.. Vascular: Pedal pulses +1/4 DP/PT , No evidence of cyanosis, pallor or rubor, Edema graded at 2+/4 right, Skin Temperature warm, No calf pain with manual compression. Integument: Toe #3 right foot is globally edematous and erythematous with two ulcerations to the dorsal aspect at the IP joint with bloody drainage, no odor. Distal aspect of toe #3 right foot is purple with necrotic skin to the lateral aspect. Erythema is ascending to the dorsum of the right foot. Toes #4, #5 are pink warm and dry. - Lab Result Diagrams: 05/10/17 03:55 05/10/17 03:55 Labs: Abnormal lab results RBC 4.06 M/mcL (4.19-5.50) L 05/10/17 03:55 Hgb 12.3 g/dL (12.9-16.9) L 05/10/17 03:55 Hct 37.4 % (37.5-50.1) L 05/10/17 03:55 Carbon Dioxide 31 mEq/L (23-29) H 05/10/17 03:55 Glucose 235 mg/dL (70-105) H 05/10/17 03:55 POC Glucose 213 (58-89) H 05/10/17 07:00 Calcium 8.4 mg/dL (8.6-10.3) L 05/10/17 03:55 Phosphorus 2.2 mg/dL (2.7-4.5) L 05/10/17 03:55 AST 7 Units/L (13-39) L 05/10/17 03:55 ALT 6 Units/L (7-52) L 05/10/17 03:55 Serum Total Protein 6.2 g/dL (6.4-8.9) L 05/10/17 03:55 Albumin 2.8 g/dL (3.5-5.7) L 05/10/17 03:55 Albumin/Globulin Ratio 0.8 (1.1-2.2) L 05/10/17 03:55 HDL Cholesterol 23 mg/dL (40-59) L 05/10/17 03:55 Cholesterol/HDL Ratio 5.5 (0-4.9) H 05/10/17 03:55 - VTE Documentation of Mechanical Device: Graduated compression elastic hosiery Consult Discharge Plan - Plan Referrals: Carlton Alcaraz [Primary Care Provider] -
[2017-05-10] MEDS ORDERED: *HR* HYDROmorphone (PF) 1 MG/ML SYRINGE IVP PRN ×2 (10:44→13:43)
[2017-05-10] MEDS: *HR* Dextrose 50 % in Water (Syg) 50 ML SYRINGE IVP PRN ×2 (11:28→15:31)
[2017-05-10] MEDS ORDERED: D10% in Water 500 ML IV SOLUTION IVC PRN ×2 (15:29→17:56)
[2017-05-10] MEDS ORDERED: 0.9 % Sodium Chloride 1,000 ML IVC SCH (15:30)
[2017-05-10] MEDS ORDERED: Bupivacaine/Clonidine Syringe 1 EACH SYRINGE ONE (15:37)
--- NOTE | 2017-05-10 16:11 | Anesthesia Evaluation PreOp ---
Date of Encounter: 05/10/17 Time of Encounter: 16:09 - Past History Planned Operation: Amputation Right Toe #3 Cardiac History: Denies any Significant Hx Pulmonary History: Denies Any Significant HX PHARMACY DIRECTOR History: Other (legally blind with complete blindness right) Other Medical History: Hepatic (hepatitis C), Diabetes Type I Anesthesia History: No Prior Anesthetic Complications, Past Anesthesia Alcohol Use: none Drug use: none Medications and Allergies Aspirin 81 mg PO DAILY 10/05/16 [History] Insulin ASPART [NovoLOG] 0 - 20 units SQ TID PRN #1 vial 12/18/16 [Rx] Cholecalciferol (D-3) [Vitamin D] 5,000 unit PO DAILY 05/10/17 [History] Insulin Glargine [Lantus] 25 unit SQ 2200 05/10/17 [History] 3 Allergy/AdvReac Type Severity Reaction Status Date / Time No Known Allergies Allergy Verified 05/10/17 13:48 - Meds/Allergy Pre-op Review Medications Reviewed: Yes Allergies Reviewed: Yes Beta Blockers on Current Med List: No Anesthesia Results - Labs 05/10/17 03:55 05/10/17 03:55 - Imaging EKG: report reviewed (12/17/2016 SR) Anesthesia Exam Vital Signs/O2 Sat/Glucose, Most Recent Temp Pulse Resp BP Pulse Ox 98.6 F 67 16 113/67 95 05/10/17 15:54 05/10/17 15:54 05/10/17 15:54 05/10/17 15:54 05/10/17 15:54 Blood Glucose* 132 Blood glucose: 132 Height: 6' Weight: 175 lbs NPO (# of Hours): 8 Pain Scale: 10 (right foot) Pain Scale Used: Numeric (1 - 10) - HEENT Pupil (Motor): EOMI Mallampati: III Teeth: Normal Oral Opening: Greater than 3 - PHARMACY DIRECTOR LOC: Oriented PHARMACY DIRECTOR Motor: Normal RUE, Normal LUE, Normal RLE, Normal LLE, Normal Face PHARMACY DIRECTOR Sensory: Deficit: RUE (neuropathy), LUE (neuropathy), RLE (neuropathy), LLE (neuropathy), Face (neuropathy) - Cardiac Rhythm: Regular Murmur: None - Pulmonary Breath Sounds: bilateral Clear Respiratory Effort: Symmetrical Anesthesia Assess/Plan ASA Score: 3 Modified Tung Scale for Level of Consciousness: Cooperative, oriented, and tranquil Anesthetic Plan: MAC Monitoring Plan: Standard Monitors
[2017-05-10] MEDS ORDERED: Lidocaine -MPF 2% 2 ML VIAL ONE (16:39)
[2017-05-10] MEDS ORDERED: Propofol 500 MG/50 ML INFUS..BTL ONE (16:39)
[2017-05-10] MEDS ORDERED: *HR* Midazolam HCl 2 MG/2 ML VIAL ONE (16:40)
[2017-05-10] MEDS ORDERED: *HR* FentaNYL (PF) 100 MCG/2 ML VIAL ONE (16:40)
--- NOTE | 2017-05-10 17:35 | Orthopedic Operative Note ---
Date of procedure: 05/10/17 Pre-op diagnosis: #1: Gangrene and osteomyelitis toe #3 right foot Post-op diagnosis: same Procedure: 05/10/17 17:30 #1: Incision of bone cortex for osteomyelitis toe #3 right foot #2: Open amputation toe #3 right foot 05/10/17 17:35 Implants: None Complications: None Anesthesia: MAC, local Local Anesthetics: 0.25% Sensorcaine HCL SubQ (cc) Surgeon: Chetan Simons Was there an paraprofessional education assistant present: No Estimated blood loss (cc): 5 Tourniquet Time (Minutes): 0 Specimen: #1: Toe #3 right foot HPT. Cultures aerobe and anaerobe right foot Condition: stable Disposition: floor Procedure in Detail: 05/10/17 17:31 Detail summary of procedure: The patient was brought to the surgical suite. A signed and procedure was performed. Patient was then transferred to the surgical table and positioned properly safely securely. Right foot was elevated and a foam block. Anesthetic timeout was taken. The right ankle was prepped with alcohol 3 times. And ankle block was carried out with local anesthetic. No tourniquet was employed. The right foot was then prepped and draped in usual sterile manner. Surgical timeout was taken The gangrenous third toe was clinically obvious with a phlegmon in the dorsal lateral aspect of the PIP joint. The right foot and ankle were then also noted to have significant edema +3 with ascending cellulitis proximal to the third metatarsal phalangeal joint. A standard racquet incision was then begun with # 15 scalpel blade, taken directly down to bone. Osteomyelitis was noted of the middle phalanx. Dissection was continued directly, over the metatarsal- phalangeal joint #3 and brought distally and then circumferentially about the toe racquet type incision ending on the plantar aspect of the sulcus of the third toe. Extensor flexor tendons were divided cleanly. Purulent drainage is noted expressed from the wound. Cultures were taken immediately aerobe and anaerobe. The capsule structures were divided cleanly using a #15 scalpel blade. The remaining capsule structures were divided using a tenotomy scissor. After resection of the toe the head of the third metatarsal was found to be pristine. It was of normal color texture density. There is no loculated abscesses or pockets of pus were noted. The wound was thoroughly inspected and debrided with a curved Metzenbaum scissor. There is no ascending infection or tissue planes were divided by the localized infection. The wound was thoroughly irrigated with sterile saline any further nonviable tissue that was noted was debrided with a pickup and curved Metzenbaum scissor. The wound was notably freely without necessitating use of Bovie ligature. The wound was thoroughly irrigated again with copious sterile saline. Finding no bone chips or debris loose closure with 3-0 Prolene was performed on the dorsal and distal aspect of the wound leaving the center portion of the wound open to allow for adequate packing with half-inch plain Nu Gauze. The remainder of the wound was dressed with sterile 4 x 4's and Kerlix. At this was anchored with tape. Patient tolerated procedure well and was sent to holding room in good condition with vital signs stable. No complications estimated blood loss less than 5 mL cultures taken were aerobe and anaerobe. Specimen third toe right foot sent to pathology. 05/10/17 17:36
[2017-05-10] MEDS ORDERED: Ondansetron 4 MG/2 ML VIAL IVP PRN (17:56)
[2017-05-10] MEDS ORDERED: *HR* Dextrose 50 % in Water (Syg) 50 ML SYRINGE IVP PRN (17:56)
[2017-05-10] MEDS ORDERED: Naloxone 0.4 MG/ML INJ IVP PRN (17:56)
[2017-05-10] MEDS ORDERED: D5% in Water 1,000 ML IVC PRN (17:56)
[2017-05-10] MEDS ORDERED: Dextrose Gel 15 GM/37.5 ML TUBE PO PRN ×2 (17:56)
[2017-05-10] MEDS ORDERED: Vancomycin 1,250 MG in D5% in Water 250 ML IVPB SCH (18:00)
[2017-05-10] MEDS: *HR* HYDROmorphone (PF) 1 MG/ML SYRINGE IVP PRN (20:11)
--- NOTE | 2017-05-10 20:22 | Internal Med Progress Note ---
Date of Encounter: 05/10/17 Time of Encounter: 20:21 (Pt seen this morning) - Subjective Interval history: Interval change: 41-year-old man with type 1 diabetes cellulitis of right toe Admitted with the right third toe cellulitis/possible osteomyelitis. Physical exam: Gen: A&O x2 in no acute distress HEENT: Head is atraumatic and normocephalic. PERRLA, EOM-full No scleral icterus. No oral or perioral lesions. Neck: No JVD, Thyroid is ML without thyromegally or nodules. No cervical LAD CV: RRR with regular rhythm Lungs: CTAB No wheezing, rales or rhonchi Abdomen: Soft , nondistended, nontender, with hyperactive BS all 4 quads w/o RBT or gaurding. Extremities: Nl distal pulses. Skin: warm and dry without rashes. Wound just redressed minutes ago nso wait until next dressing change to observe Neruo: No obvious focal deficits noted. A/P: Cellulitis with possibl;e osteomyelitis: Blood cultures pending Podiatry consulted and per report surgery this afternoon. IV vancomycin. IV Zosyn. Add Dilaudid for pain control. DM-1: While NPO for surgery Change Insulin to SSI Humalog q6 hrs DVT prophylaxis: Heparin >30 mins - Constitutional Vitals: Temp Pulse Resp BP Pulse Ox 98.6 F 79 16 146/79 95 05/10/17 15:54 05/10/17 18:42 05/10/17 18:42 05/10/17 18:42 05/10/17 15:54 Internal Medicine: Result - Labs CBC & Chem 7: 05/10/17 03:55 05/10/17 03:55 Labs: Short CBC 05/10/17 Range/Units 03:55 WBC 8.7 (4.3-11.1) K/mcL Hgb 12.3 L (12.9-16.9) g/dL Hct 37.4 L (37.5-50.1) % Plt Count 278 (140-400) K/mcL Neutrophils # 5.9 (1.6-8.9) K/mcL BMP 05/10/17 03:55 Sodium 136 Potassium 4.1 Chloride 101 Carbon Dioxide 31 H BUN 6 Creatinine 0.86 Glucose 235 H Calcium 8.4 L Liver Function 05/10/17 Range/Units 03:55 Total Bilirubin 0.3 (0.3-1.0) mg/dL AST 7 L (13-39) Units/L ALT 6 L (7-52) Units/L Alkaline Phosphatase 79 (34-104) Units/L Albumin 2.8 L (3.5-5.7) g/dL - ABG Interpretation ABG results: PT/INR, D-dimer PT 11.3 Seconds (9.4-12.1) 05/10/17 03:55 - VTE Documentation of Mechanical Device: Graduated compression elastic hosiery Consult Discharge Plan - Plan Referrals: Carlton Alcaraz [Primary Care Provider] -
[2017-05-10] MEDS: Aspirin 81 MG TAB.CHEW PO SCH (20:53)
[2017-05-10] MEDS: Insulin DETEMIR 100 UNIT/ML X5UNITS SQ SCH (20:58)
[2017-05-10] MEDS ORDERED: Insulin LISPRO 300 UNITS/3 ML VIAL SQ SCH ×2 (21:00)
[2017-05-10] MEDS: 0.9 % Sodium Chloride 1,000 ML IVC SCH (23:02)
[2017-05-11] MEDS: *HR* HYDROmorphone (PF) 1 MG/ML SYRINGE IVP PRN ×5 (00:07→18:04)
[2017-05-11] MEDS ORDERED: Insulin LISPRO 300 UNITS/3 ML VIAL SQ ONE (00:27)
[2017-05-11] MEDS ORDERED: D5% in Water 1,000 ML IVC PRN ×2 (00:28→00:36)
[2017-05-11] MEDS ORDERED: *HR* Dextrose 50 % in Water (Syg) 50 ML SYRINGE IVP PRN ×2 (00:28→00:36)
[2017-05-11] MEDS ORDERED: Dextrose Gel 15 GM/37.5 ML TUBE PO PRN ×4 (00:28→00:36)
[2017-05-11] MEDS: Insulin LISPRO 300 UNITS/3 ML VIAL SQ SCH ×6 (01:03→21:03)
[2017-05-11] MEDS: Piperacillin/Tazobactam 3.375 GM/200 ML BAG IVPB SCH ×3 (02:55→18:05)
[2017-05-11] MEDS: Vancomycin 1,500 MG in D5% in Water 250 ML IVPB SCH ×2 (06:28→18:04)
[2017-05-11] MEDS ORDERED: Insulin LISPRO 300 UNITS/3 ML VIAL SQ SCH ×3 (07:30→21:00)
[2017-05-11] MEDS: 0.9 % Sodium Chloride 1,000 ML IVC SCH (12:36)
[2017-05-11] MEDS ORDERED: *HR* HYDROmorphone (PF) 1 MG/ML SYRINGE IVP ONE (13:17)
--- NOTE | 2017-05-11 13:21 | Podiatry Progress Note ---
Date of Encounter: 05/11/17 Time of Encounter: 12:00 - Assessment and Plan (1) Diabetic infection of right foot Current Visit: Yes Status: Acute Continue vanc and zosyn coverage Intra op cultures pending Monitor WBC and renal function WBC today 8.7 (2) Cellulitis of right toe Current Visit: No Status: Acute s/p amputation Continue current antibiotic coverage (3) Hyperglycemia due to type 1 diabetes mellitus Current Visit: No Status: Acute Consult placed for nutritional services consult for diabetic education Patient will need [facility] for home assistance of diabetic management, dressing changes, insulin administration and nutritional assistance due to patients low vision and need for assistance. (4) Status post amputation of lesser toe of right foot Current Visit: No Status: Acute Assessed at bedside, dressing changed Flushed wound with sterile saline, allcare skin care to macerated skin, repacked with sterile packing and replaced dry dressing Patient to remain non weight bearing Will plan to take patient back to OR with on 05/13/17 for rewashout and closure of surgical wound Patient will be NPO after midnight on Wednesday05/12/17 Continue current antibiotic therapy- Patient made aware of surgical plans for , denies any questions. will also be by to answer any questions Subjective Interval history: Patient POD #1 s/p #1: Incision of bone cortex for osteomyelitis toe #3 right foot #2: Open amputation toe #[address] Simons. Patient resting in bed. States he is in a large amount of pain to his right foot. nurse at bedside administering dilaudid. Patient states it does not help much. Patient denies any known fevers, chills, n/v or flu like symptoms. Denies calf pain or SOB Afebrile 98.2/ wbc 8.7 Objective - Vital Signs Vital Signs: Vital Signs Temp Pulse Resp BP Pulse Ox 05/11/17 10:00 98.2 F 73 16 110/69 95 05/11/17 09:19 95 05/11/17 06:57 98.7 F 84 16 104/65 96 05/11/17 03:44 98.8 F 77 16 124/72 96 05/10/17 23:18 97.8 F 75 16 153/77 96 05/10/17 18:42 79 16 146/79 05/10/17 18:21 78 145/85 05/10/17 17:56 66 16 106/40 05/10/17 15:54 98.6 F 67 16 113/67 95 Intake and Output 05/10/17 05/11/17 05/11/17 23:59 07:59 15:59 Intake Total 200 / 200 200 / 200 1240 / 1240 Output Total 705 / 705 375 / 375 Balance -505 / -505 -175 / -175 1240 / 1240 Intake: IV Fluids 200 / 200 200 / 200 1000 / 1000 0.9 % Sodium Chloride 1,000 ML 1000 / 1000 @ 75 mls/hr IVC .[id number] THUY Rx #:[id number] Zosyn Premix 3.375 GM/200 ML 3. 200 / 200 200 / 200 375 gm In 200 ml @ 50 mls/hr IVPB Q8H THUY Rx#:[id number] Oral 240 / 240 Output: Urine 700 / 700 375 / 375 Estimated Blood Loss 5 / 5 Other: Meal NPO Percent of Meal Consumed 75% Blood Glucose* 365 130 91 - Exam Exam: Awake alert and oriented Pulses palpable DP/PT 1+/4 edema Warm toes to tibia Cap refill <3 seconds No calf pain with manual compression Minimal sensation to light-moderate touch Packing removed from surgical incision Rinsed with saline Incision line clean- very slight maceration to incision line- small open area of incision line inspected, scant bloody drainage- no purulent drainage. Minimal surrounding edema and erythema. No odor. Mild warmth. Repacked incision site - Lab Result Diagrams: 05/10/17 03:55 05/10/17 03:55 Labs: Abnormal lab results RBC 4.06 M/mcL (4.19-5.50) L 05/10/17 03:55 Hgb 12.3 g/dL (12.9-16.9) L 05/10/17 03:55 Hct 37.4 % (37.5-50.1) L 05/10/17 03:55 Carbon Dioxide 31 mEq/L (23-29) H 05/10/17 03:55 Glucose 235 mg/dL (70-105) H 05/10/17 03:55 POC Glucose 91 (58-89) H 05/11/17 11:54 Calcium 8.4 mg/dL (8.6-10.3) L 05/10/17 03:55 Phosphorus 2.2 mg/dL (2.7-4.5) L 05/10/17 03:55 AST 7 Units/L (13-39) L 05/10/17 03:55 ALT 6 Units/L (7-52) L 05/10/17 03:55 Serum Total Protein 6.2 g/dL (6.4-8.9) L 05/10/17 03:55 Albumin 2.8 g/dL (3.5-5.7) L 05/10/17 03:55 Albumin/Globulin Ratio 0.8 (1.1-2.2) L 05/10/17 03:55 HDL Cholesterol 23 mg/dL (40-59) L 05/10/17 03:55 Cholesterol/HDL Ratio 5.5 (0-4.9) H 05/10/17 03:55 - VTE Documentation of Mechanical Device: Graduated compression elastic hosiery Consult Discharge Plan - Plan Referrals: Carlton Alcaraz [Primary Care Provider] -
--- NOTE | 2017-05-11 14:17 | Internal Med Progress Note ---
Date of Encounter: 05/11/17 Time of Encounter: 14:15 - Assessment and plan (1) Status post amputation of lesser toe of right foot Current Visit: No Status: Acute Assessment and plan: Management per Podiatry, currently patient doing well. No acute issues. Cultures pending. plan for rewashout and closure of surgical wound on 05/13. (2) Cellulitis of right toe Current Visit: No Status: Acute Assessment and plan: Status-post amputation 05/10/17, doing well. Afebrile, no acute distress, CBC from 05/09-05/10 were within normal limits. No signs of sepsis. Continue Vancomycin/Zosyn. (3) Diabetic infection of right foot Current Visit: Yes Status: Acute (4) Diabetes mellitus with neuropathy Current Visit: No Status: Acute Assessment and plan: glucose spiked yesterday. Reported that patient had 3 cups of jello overnight. Today glucose running 75-130. Acceptable to keep glucose <180, and avoid hypoglycemia. ISS and glucose checks Q4H, space out when glucose more stable. Levemir 30 units HS Qualifiers: Diabetes mellitus type: type 1 Qualified Code(s): E10.40 - Type 1 diabetes mellitus with diabetic neuropathy, unspecified (5) DVT prophylaxis Current Visit: No Status: Acute - Subjective Interval history: Patient has complaints of right foot pain. He denies fevers/chill, n/v. - Constitutional Vitals: Temp Pulse Resp BP Pulse Ox 98.2 F 73 16 110/69 95 05/11/17 10:00 05/11/17 10:00 05/11/17 10:00 05/11/17 10:00 05/11/17 10:00 Exam: Gen: NAD, AAOx3 CVS: RRR Lungs; CTAB Abd: NT/ND Ext: right foot wrapped, clean gauze with no active bleed, no purulent drainage. Internal Medicine: Result - Labs CBC & Chem 7: 05/10/17 03:55 05/10/17 03:55 - ABG Interpretation ABG results: PT/INR, D-dimer PT 11.3 Seconds (9.4-12.1) 05/10/17 03:55 - VTE Documentation of Mechanical Device: Graduated compression elastic hosiery Consult Discharge Plan - Plan Referrals: Carlton Alcaraz [Primary Care Provider] -
[2017-05-11] MEDS: *HR* Heparin 5,000 UNIT/ML VIAL SQ SCH (18:04)
[2017-05-11] MEDS: Insulin DETEMIR 100 UNIT/ML X5UNITS SQ SCH (21:02)
[2017-05-11] MEDS: Aspirin 81 MG TAB.CHEW PO SCH (21:02)
[2017-05-12] MEDS: Insulin LISPRO 300 UNITS/3 ML VIAL SQ SCH ×6 (00:30→20:44)
[2017-05-12] MEDS: Piperacillin/Tazobactam 3.375 GM/200 ML BAG IVPB SCH ×3 (02:50→19:01)
[2017-05-12] MEDS: *HR* HYDROmorphone (PF) 1 MG/ML SYRINGE IVP PRN ×4 (02:50→19:33)
[2017-05-12] MEDS: 0.9 % Sodium Chloride 1,000 ML IVC SCH ×2 (03:34→20:44)
[2017-05-12] MEDS: Vancomycin 1,500 MG in D5% in Water 250 ML IVPB SCH ×2 (05:25→17:27)
[2017-05-12] MEDS: *HR* Heparin 5,000 UNIT/ML VIAL SQ SCH ×2 (05:26→17:29)
--- NOTE | 2017-05-12 16:38 | Podiatry Progress Note ---
Date of Encounter: 05/12/17 Time of Encounter: 12:00 - Assessment and Plan (1) Diabetic infection of right foot Current Visit: Yes Status: Acute Continue vanc and zosyn coverage Intra op cultures pending- SA on prelim Monitor WBC and renal function WBC today 8.7 (2) Cellulitis of right toe Current Visit: No Status: Acute s/p amputation Continue current antibiotic coverage (3) Hyperglycemia due to type 1 diabetes mellitus Current Visit: No Status: Acute Consult placed for nutritional services consult for diabetic education Patient will need [facility] for home assistance of diabetic management, dressing changes, insulin administration and nutritional assistance due to patients low vision and need for assistance. (4) Status post amputation of lesser toe of right foot Current Visit: No Status: Acute Assessed at bedside, dressing changed Flushed wound with sterile saline, allcare skin care to macerated skin, has improved since previous assessment. repacked with sterile packing and replaced dry dressing Patient to remain non weight bearing Will plan to take patient back to OR with on 05/13/17 for rewashout and closure of surgical wound Patient will be NPO after midnight on Wednesday05/12/17 Continue current antibiotic therapy- Patient made aware of surgical plans for , denies any questions. will also be by to answer any questions Subjective Interval history: Patient POD #2 s/p #1: Incision of bone cortex for osteomyelitis toe #3 right foot #2: Open amputation toe #[address] Simons. Patient resting in bed. States he still has pain to his foot. Patient is ordered dilaudid but states nursing staff takes forever to deliver medication when he asks. Patient denies any known fevers, chills, n/v or flu like symptoms. Denies calf pain or SOB WBC 8.7 temp 97.8 Objective - Vital Signs Vital Signs: Vital Signs Temp Pulse Resp BP Pulse Ox 05/12/17 16:33 97.8 F 70 16 124/75 97 05/12/17 11:42 98.2 F 90 16 123/78 98 05/12/17 06:47 97.8 F 75 16 126/74 96 05/12/17 04:04 98.0 F 74 16 129/68 97 05/11/17 20:42 97.9 F 70 16 120/66 96 Intake and Output 05/12/17 05/12/17 05/12/17 07:59 15:59 23:59 Intake Total 3800 / 3800 480 / 480 Output Total 2700 / 2700 2350 / 2350 Balance 1100 / 1100 -1870 / -1870 Intake: IV Fluids 3800 / 3800 0.9 % Sodium Chloride 1,000 ML 2000 / 2000 @ 75 mls/hr IVC .[id number] THUY Rx #:[id number] Zosyn Premix 3.375 GM/200 ML 3. 800 / 800 375 gm In 200 ml @ 50 mls/hr IVPB Q8H THUY Rx#:[id number] Vancocin 1,500 MG In Dextrose 5 1000 / 1000 % 250 ML @ 167 mls/hr IVPB Q12H THUY Rx#:[id number] Oral 0 / 0 480 / 480 Output: Urine 2700 / 2700 2350 / 2350 Other: Meal Breakfast Percent of Meal Consumed 25% Blood Glucose* 98 234 89 - Exam Exam: Awake, alert and oriented Pulses palpable DP/PT warm toes to tibia Cap refill <3 seconds Minimal erythema and edema noted to foot at this time Minimal sensation to light-moderate touch Muscle strength 5/5 No calf pain with manual compression Packing removed from surgical wound Incision remains intact with small surgical opening, packing removed Wound bed clean, no purulent drainage, minimal surrounding edema or erythema Minimal warmth No odor Maceration has decreased since 05/11 assessment - Lab Result Diagrams: 05/10/17 03:55 05/10/17 03:55 Labs: Abnormal lab results RBC 4.06 M/mcL (4.19-5.50) L 05/10/17 03:55 Hgb 12.3 g/dL (12.9-16.9) L 05/10/17 03:55 Hct 37.4 % (37.5-50.1) L 05/10/17 03:55 Carbon Dioxide 31 mEq/L (23-29) H 05/10/17 03:55 Glucose 235 mg/dL (70-105) H 05/10/17 03:55 POC Glucose 234 (58-89) H 05/12/17 11:39 Calcium 8.4 mg/dL (8.6-10.3) L 05/10/17 03:55 Phosphorus 2.2 mg/dL (2.7-4.5) L 05/10/17 03:55 AST 7 Units/L (13-39) L 05/10/17 03:55 ALT 6 Units/L (7-52) L 05/10/17 03:55 Serum Total Protein 6.2 g/dL (6.4-8.9) L 05/10/17 03:55 Albumin 2.8 g/dL (3.5-5.7) L 05/10/17 03:55 Albumin/Globulin Ratio 0.8 (1.1-2.2) L 05/10/17 03:55 HDL Cholesterol 23 mg/dL (40-59) L 05/10/17 03:55 Cholesterol/HDL Ratio 5.5 (0-4.9) H 05/10/17 03:55 Microbiology, Last 48 Hours 05/10/17 17:09 Wound Culture - Preliminary Right Foot Staphylococcus aureus - VTE Documentation of Mechanical Device: Graduated compression elastic hosiery Consult Discharge Plan - Plan Referrals: Carlton Alcaraz [Primary Care Provider] -
--- NOTE | 2017-05-12 16:58 | Internal Med Progress Note ---
Date of Encounter: 05/12/17 Time of Encounter: 16:41 - Assessment and plan (1) Status post amputation of lesser toe of right foot Current Visit: No Status: Acute Assessment and plan: Management per Podiatry, currently patient doing well. No acute issues. Cultures pending. plan for rewashout and closure of surgical wound on 05/13. (2) Cellulitis of right toe Current Visit: No Status: Acute Assessment and plan: Status-post amputation 05/10/17, doing well. Afebrile, no acute distress, CBC from 05/09-05/10 were within normal limits. No signs of sepsis. Continue Vancomycin/Zosyn. Wound culture 05/10/17: Staph aureus, sensitivities pending. (3) Diabetes mellitus with neuropathy Current Visit: No Status: Acute Assessment and plan: glucose spiked yesterday. Reported that patient had 3 cups of jello overnight. Today glucose running 75-130. Acceptable to keep glucose <180, and avoid hypoglycemia. ISS and glucose checks Q4H, space out when glucose more stable. Levemir 30 units HS Qualifiers: Diabetes mellitus type: type 1 Qualified Code(s): E10.40 - Type 1 diabetes mellitus with diabetic neuropathy, unspecified (4) Diabetic infection of right foot Current Visit: Yes Status: Acute (5) DVT prophylaxis Current Visit: No Status: Acute Assessment and plan: Heparin - Subjective Interval history: Patient has complaints of right foot pain, states it is unchanged since yesterday. He denies fevers/chill, n/v. - Constitutional Vitals: Temp Pulse Resp BP Pulse Ox 97.8 F 70 16 124/75 97 05/12/17 16:33 05/12/17 16:33 05/12/17 16:33 05/12/17 16:33 05/12/17 16:33 Exam: Gen: NAD, AAOx3 CVS: RRR Lungs; CTAB Abd: NT/ND Ext: right foot wrapped, clean gauze with no active bleed, no purulent drainage. Internal Medicine: Result - Labs CBC & Chem 7: 05/10/17 03:55 05/10/17 03:55 - ABG Interpretation ABG results: PT/INR, D-dimer PT 11.3 Seconds (9.4-12.1) 05/10/17 03:55 - VTE Documentation of Mechanical Device: Graduated compression elastic hosiery Consult Discharge Plan - Plan Referrals: Carlton Alcaraz [Primary Care Provider] -
[2017-05-12] MEDS: Insulin DETEMIR 100 UNIT/ML X5UNITS SQ SCH (20:44)
[2017-05-12] MEDS: Aspirin 81 MG TAB.CHEW PO SCH (20:44)
--- NOTE | 2017-05-12 23:11 | Anesthesia Evaluation PreOp ---
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; diabetic neuropathy) Other Medical History: Hepatic (hep C), Diabetes Type I, Other (cellulitis of right toe) Anesthesia History: No Prior Anesthetic Complications Alcohol Use: none Drug use: none Medications and Allergies Aspirin 81 mg PO DAILY 10/05/16 [History] Insulin ASPART [NovoLOG] 0 - 20 units SQ TID PRN #1 vial 12/18/16 [Rx] Cholecalciferol (D-3) [Vitamin D] 5,000 unit PO DAILY 05/10/17 [History] Insulin Glargine [Lantus] 25 unit SQ 2200 05/10/17 [History] 3 Allergy/AdvReac Type Severity Reaction Status Date / Time No Known Allergies Allergy Verified 05/10/17 13:48 - Meds/Allergy Pre-op Review Medications Reviewed: Yes Allergies Reviewed: Yes Beta Blockers on Current Med List: No Anesthesia Results - Labs 05/10/17 03:55 05/10/17 03:55 - Imaging EKG: report reviewed, image reviewed (SR) Anesthesia Exam Last Vital Signs Temp 98.4 F 05/12/17 20:09 Pulse 70 05/12/17 20:09 Resp 16 05/12/17 20:09 BP 128/71 05/12/17 20:09 Pulse Ox 95 05/12/17 20:09 Weight: 80 kg Anesthesia Assess/Plan ASA Score: 3 Anesthetic Plan: MAC Monitoring Plan: Standard Monitors Recovery Plan: PACU <Chetan Masters - Last Filed: 05/13/17 07:44> Date of Encounter: 05/13/17 Time of Encounter: 07:30 Anesthesia Results - Labs 05/13/17 05:12 05/13/17 05:12
[2017-05-13] MEDS: Insulin LISPRO 300 UNITS/3 ML VIAL SQ SCH ×5 (00:43→22:01)
[2017-05-13] MEDS: *HR* HYDROmorphone (PF) 1 MG/ML SYRINGE IVP PRN ×7 (00:47→21:15)
[2017-05-13] MEDS: Piperacillin/Tazobactam 3.375 GM/200 ML BAG IVPB SCH ×3 (03:27→17:58)
[2017-05-13] MEDS: Vancomycin 1,500 MG in D5% in Water 250 ML IVPB SCH (05:05)
[2017-05-13] MEDS: 0.9 % Sodium Chloride 1,000 ML IVC SCH ×2 (05:06→10:39)
[2017-05-13] MEDS: *HR* Heparin 5,000 UNIT/ML VIAL SQ SCH ×2 (05:11→17:58)
[2017-05-13 05:37] LABS: Basophils # 0.1 K/mcL (0.0-0.2); Basophils % 0.9 %; Eosinophils # 0.3 K/mcL (0.0-0.6); Hematocrit 40.9 % (37.5-50.1); Hemoglobin 13.4 g/dL (12.9-16.9); Immature Granulocytes % 0.2 % (0-4); Lymphocytes # 2.6 K/mcL (0.6-4.6); Lymphocytes % 40.4 %; Mean Corpuscular HGB Conc 32.8 g/dL (31.6-35.5); Mean Corpuscular Hemoglobin 29.8 pg (28.0-33.3); Mean Corpuscular Volume 91.1 fL (83.0-100.0); Mean Platelet Volume 9.2 fL (9.4-12.4); Monocytes # 0.5 K/mcL (0.0-1.3); Monocytes % 7.1 %; Platelet Count 375 K/mcL (140-400); Red Blood Count 4.49 M/mcL (4.19-5.50); Red Cell Distribution Width 12.6 % (11.5-14.5); Segmented Neutrophils % 46.4 %
[2017-05-13 06:09] LABS: BUN/Creatinine Ratio 12 (6-26); Blood Urea Nitrogen 11 mg/dL (6-20); Calcium 8.8 mg/dL (8.6-10.3); Carbon Dioxide 32 mEq/L (23-29); Chloride 103 mEq/L (98-107); Glucose 63 mg/dL (70-105); Osmolality,Calculated 283 (280-300); Potassium 4.5 mEq/L (3.5-5.1); Sodium 138 mEq/L (136-145); eGFR For African Americans > 60 (> 60); eGFR For Non-African Americans > 60 (> 60)
[2017-05-13] MEDS ORDERED: Lidocaine -MPF 2% 2 ML VIAL ONE ×2 (07:08→07:10)
[2017-05-13] MEDS ORDERED: Ondansetron 4 MG/2 ML VIAL ONE (07:08)
[2017-05-13] MEDS ORDERED: *HR* Midazolam HCl 2 MG/2 ML VIAL ONE (07:09)
[2017-05-13] MEDS ORDERED: *HR* FentaNYL (PF) 100 MCG/2 ML VIAL ONE (07:09)
[2017-05-13] MEDS ORDERED: *HR* Propofol 200 MG/20 ML VIAL IVP ONE ×2 (07:09→07:13)
[2017-05-13] MEDS ORDERED: Bupivacaine/Clonidine Syringe 1 EACH SYRINGE ONE (07:24)
[2017-05-13] MEDS ORDERED: D5% in Water 500 ML ONE ×2 (07:40→07:45)
--- NOTE | 2017-05-13 09:02 | Orthopedic Operative Note ---
Date of procedure: 05/13/17 Pre-op diagnosis: Open surgical wound status post amputation toe #3 right foot Post-op diagnosis: same Procedure: 05/13/17 08:57 #1: Secondary closure surgical wound Implants: None Complications: None Anesthesia: MAC, local Local Anesthetics: 0.25% Sensorcaine HCL SubQ (cc) Surgeon: Chetan Simons Was there an student assistant present: No Estimated blood loss (cc): 5 Tourniquet Time (Minutes): 0 Specimen: None Condition: stable Disposition: floor Procedure in Detail: 05/13/17 08:58 Details in summary of procedure: The patient was brought to the surgical suite. A signed and procedure was performed. The patient was then transferred to the surgical table and positioned properly safely securely. The right lower extremity was elevated on a foam block. Anesthetic timeout was taken. The right ankle was then prepped with alcohol 3 times. An ankle block was then carried out without difficulty or complication. The dressing was removed. Right foot was then prepped and draped in usual sterile manner. No tourniquet was used. Surgical timeout taken. Previous sutures loose retention sutures were removed. I then used a #15 scalpel blade to excise skin edge from distal to proximal throughout the length of the previous incision for the medial lateral aspect of the wound. The wound was inspected no purulent drainage necrosis was discovered. The metatarsal head was still pristine in nature abnormal color, texture, density. The wound was flushed with copious sterile saline. At that juncture the wound was debrided with a pickup and blunt-tipped iris scissors of all suspicious nonviable tissue down to the bone/metatarsal. The wound was then debrided with an ultrasonicWikidata Misonix debrider. Satisfied with a clean wound undermining was then undertaken and the fibrosis and adhesions were taken down medially from the previous second toe amputation to create enough tissue mobilization for closure without tension. Undermining was also carried out with deep fascial layer laterally but avoiding any intermetatarsal artery or vital neurovascular bundle. Satisfied we had adequate tissue mobilization the wound was debrided again with an ultrasonics Misonix debrider. Deep fascial closure was undertaken with Vicryl covering the metatarsal head itself with fascia. Several deep sutures were placed as well to decrease tension for skin closure. Wounds closed in routine fashion skin repaired with 3-0 Prolene. Just prior to closure the wound was sprayed with PRP. After closure the wound was complete the wound was dressed with Adaptic 4 x 4's and Kerlix Rebel wraps Medipore tape. Capillary refill time is less than 3 seconds to toes #45 as well as the skin edges. Skin edges were noted to bleed freely as was the wound without necessitating use of Bovie ligature. Complications encountered none estimated blood loss less than 5 mL. Patient was sent to holding room in good condition with vital signs stable.
[2017-05-13] MEDS ORDERED: D10% in Water 500 ML IV SOLUTION IVC PRN (09:18)
[2017-05-13] MEDS ORDERED: Dextrose Gel 15 GM/37.5 ML TUBE PO PRN ×2 (09:18)
[2017-05-13] MEDS ORDERED: *HR* Dextrose 50 % in Water (Syg) 50 ML SYRINGE IVP PRN (09:18)
[2017-05-13] MEDS ORDERED: Ondansetron 4 MG/2 ML VIAL IVP PRN (09:18)
[2017-05-13] MEDS ORDERED: Naloxone 0.4 MG/ML INJ IVP PRN (09:18)
[2017-05-13] MEDS ORDERED: D5% in Water 1,000 ML IVC PRN (09:18)
[2017-05-13] MEDS ORDERED: Insulin LISPRO 300 UNITS/3 ML VIAL SQ SCH (12:45)
--- NOTE | 2017-05-13 16:32 | Internal Med Progress Note ---
Date of Encounter: 05/13/17 Time of Encounter: 16:30 - Assessment and plan (1) Status post amputation of lesser toe of right foot Current Visit: No Status: Acute Assessment and plan: Management per Podiatry, currently patient doing well. No acute issues. Cultures pending. plan for rewashout and closure of surgical wound. Done today, patient doing well. (2) Staphylococcus aureus bacteremia Current Visit: Yes Status: Acute Assessment and plan: Was notified today that blood cultures obtained at [place] returned positive for Staph aureus. Patient has had 1 SIRS criteria since arriva, fever. Has had no leukocytosis, tachycardia, tachypnea. Will monitor closely. Repeat blood cultures today and monitor for 48 hours. (3) Cellulitis of right toe Current Visit: No Status: Acute Assessment and plan: Status-post amputation 05/10/17, doing well. Afebrile, no acute distress, CBC from 05/09-05/10 were within normal limits. No signs of sepsis. Continue Vancomycin/Zosyn. Wound culture 05/10/17: Staph aureus, sensitivities pending. (4) Diabetes mellitus with neuropathy Current Visit: No Status: Acute Assessment and plan: glucose spiked yesterday. Reported that patient had 3 cups of jello overnight. Today glucose running 75-130. Acceptable to keep glucose <180, and avoid hypoglycemia. ISS and glucose checks Q4H, space out when glucose more stable. Levemir 30 units HS Qualifiers: Diabetes mellitus type: type 1 Qualified Code(s): E10.40 - Type 1 diabetes mellitus with diabetic neuropathy, unspecified (5) Diabetic infection of right foot Current Visit: Yes Status: Acute (6) DVT prophylaxis Current Visit: No Status: Acute - Subjective Interval history: Returned from operation this AM. Doing well no complaints. - Constitutional Vitals: Temp Pulse Resp BP Pulse Ox 98.0 F 67 18 110/65 96 05/13/17 15:00 05/13/17 15:00 05/13/17 15:00 05/13/17 15:00 05/13/17 15:00 Exam: Gen: NAD, AAOx3 CVS: RRR Lungs: CTAB Ext: right foot in wrapping, clean dressing. Skin: warm, dry Internal Medicine: Result - Labs CBC & Chem 7: 05/13/17 05:12 05/13/17 05:12 Labs: Short CBC 05/13/17 Range/Units 05:12 WBC 6.4 (4.3-11.1) K/mcL Hgb 13.4 (12.9-16.9) g/dL Hct 40.9 (37.5-50.1) % Plt Count 375 (140-400) K/mcL Neutrophils # 3.0 (1.6-8.9) K/mcL BMP 05/13/17 05:12 Sodium 138 Potassium 4.5 Chloride 103 Carbon Dioxide 32 H BUN 11 Creatinine 0.94 Glucose 63 L Calcium 8.8 - ABG Interpretation ABG results: PT/INR, D-dimer PT 11.3 Seconds (9.4-12.1) 05/10/17 03:55 - VTE Documentation of Mechanical Device: Graduated compression elastic hosiery Consult Discharge Plan - Plan Referrals: Carlton Alcaraz [Primary Care Provider] -
[2017-05-13] MEDS ORDERED: Vancomycin 1,500 MG in D5% in Water 250 ML IVPB SCH (17:30)
[2017-05-13] MEDS: Vancomycin 1,250 MG in D5% in Water 250 ML IVPB SCH (17:59)
[2017-05-13] MEDS ORDERED: Acetaminophen 325 MG TABLET PO PRN (19:45)
[2017-05-13] MEDS: Aspirin 81 MG TAB.CHEW PO SCH (21:15)
[2017-05-13] MEDS: Insulin DETEMIR 100 UNIT/ML X5UNITS SQ SCH (21:17)
[2017-05-14] MEDS: *HR* HYDROmorphone (PF) 1 MG/ML SYRINGE IVP PRN ×5 (00:27→16:25)
[2017-05-14] MEDS: 0.9 % Sodium Chloride 1,000 ML IVC SCH ×2 (04:22→16:19)
[2017-05-14] MEDS: Piperacillin/Tazobactam 3.375 GM/200 ML BAG IVPB SCH ×3 (04:23→19:58)
[2017-05-14] MEDS: *HR* Heparin 5,000 UNIT/ML VIAL SQ SCH ×2 (05:31→20:03)
[2017-05-14] MEDS: Vancomycin 1,250 MG in D5% in Water 250 ML IVPB SCH ×2 (05:31→19:56)
[2017-05-14 06:12] LABS: Basophils # 0.1 K/mcL (0.0-0.2); Basophils % 0.8 %; Eosinophils # 0.3 K/mcL (0.0-0.6); Eosinophils % 4.8 %; Hematocrit 38.9 % (37.5-50.1); Hemoglobin 12.4 g/dL (12.9-16.9); Immature Granulocytes % 0.3 % (0-4); Lymphocytes % 32.3 %; Mean Corpuscular HGB Conc 31.9 g/dL (31.6-35.5); Mean Corpuscular Hemoglobin 29.1 pg (28.0-33.3); Mean Corpuscular Volume 91.3 fL (83.0-100.0); Monocytes # 0.4 K/mcL (0.0-1.3); Monocytes % 6.4 %; Neutrophils # 3.5 K/mcL (1.6-8.9); Platelet Count 383 K/mcL (140-400); Red Blood Count 4.26 M/mcL (4.19-5.50); Red Cell Distribution Width 12.5 % (11.5-14.5); Segmented Neutrophils % 55.4 %
[2017-05-14 06:35] LABS: BUN/Creatinine Ratio 12 (6-26); Blood Urea Nitrogen 11 mg/dL (6-20); Calcium 8.7 mg/dL (8.6-10.3); Carbon Dioxide 33 mEq/L (23-29); Chloride 102 mEq/L (98-107); Glucose 150 mg/dL (70-105); Osmolality,Calculated 288 (280-300); Potassium 4.1 mEq/L (3.5-5.1); Sodium 138 mEq/L (136-145); eGFR For African Americans > 60 (> 60); eGFR For Non-African Americans > 60 (> 60)
[2017-05-14] MEDS: Insulin LISPRO 300 UNITS/3 ML VIAL SQ SCH ×7 (07:55→20:10)
--- NOTE | 2017-05-14 13:18 | Podiatry Progress Note ---
Date of Encounter: 05/14/17 Time of Encounter: 12:00 - Assessment and Plan (1) Diabetic infection of right foot Current Visit: Yes Status: Acute Continue antibiotic coverage Intra op cultures SA on final- Monitor WBC and renal function WBC today 6.3 (2) Cellulitis of right toe Current Visit: No Status: Acute s/p amputation Continue current antibiotic coverage (3) Hyperglycemia due to type 1 diabetes mellitus Current Visit: No Status: Acute Consult placed for nutritional services consult for diabetic education Patient will need [facility] for home assistance of diabetic management, dressing changes, insulin administration and nutritional assistance due to patients low vision and need for assistance. (4) Status post amputation of lesser toe of right foot Current Visit: No Status: Acute Assessed at bedside, dressing changed Surgical dressing removed assessed, cleansed with saline, pat dry sterile 4x4. SkinPrep applied to dry macerated skin. adaptic, 4x4 and kerlex applied. CITLALI reapplied for compression Will monitor response to antibiotic therapy as well as monitor for post surgical changes Patient has SW on board to set up HHC for medication management Continue current antibiotic therapy- Anticipated discharge on Wednesday. Subjective Interval history: Patient s/p #1: Incision of bone cortex for osteomyelitis toe #3 right foot and #2: Open amputation toe #3 right on 05/10/2017 followed by #1: Secondary closure surgical wound per on 05/14/2017 Patient resting in bed. Surgical dressing intact. No drainage to dressing. Patient has been NWB to foot. States he still has pain to his foot. Patient denies any known fevers, chills, n/v or flu like symptoms. Denies calf pain or SOB afebrile. wbc 6.3 Objective - Vital Signs Vital Signs: Vital Signs Temp Pulse Resp BP Pulse Ox 05/14/17 10:45 98.1 F 70 16 126/68 96 05/14/17 06:45 98.5 F 72 16 153/81 95 05/14/17 04:14 98.1 F 68 15 132/72 97 05/13/17 19:36 97.6 F 78 15 129/77 98 05/13/17 15:00 98.0 F 67 18 110/65 96 Intake and Output 05/13/17 05/14/17 05/14/17 23:59 07:59 15:59 Intake Total 300 / 300 1830 / 1830 920 / 920 Output Total 950 / 950 1250 / 1250 325 / 325 Balance -650 / -650 580 / 580 595 / 595 Intake: IV Fluids 1350 / 1350 200 / 200 0.9 % Sodium Chloride 1,000 ML 650 / 650 @ 75 mls/hr IVC .[id number] THUY Rx #:[id number] Zosyn Premix 3.375 GM/200 ML 3. 200 / 200 200 / 200 375 gm In 200 ml @ 50 mls/hr IVPB Q8H THUY Rx#:[id number] Vancocin 1,250 MG In Dextrose 5 500 / 500 % 250 ML @ 166.67 mls/hr IVPB Q12H THUY Rx#:[id number] Oral 300 / 300 480 / 480 720 / 720 Output: Urine 950 / 950 1250 / 1250 325 / 325 Other: Meal Dinner Breakfast Percent of Meal Consumed 50% 75% Weight 81.225 kg Blood Glucose* 176 146 240 Patient Weight 05/14/17 23:59 Weight 81.225 kg - Exam Exam: Awake alert and oriented Pulses palpable DP/PT Cap refill < 3 seconds Warm toes to tibia No calf pain with manual compression Minimal sensation to light-moderate touch Surgical dressing removed- incision line intact and wound is closed without clinical signs of dehiscence. No clinical signs of infection. no drainage. Scant amount of maceration to distal aspect of surgical line. Minimal surrounding erythema, edema or warmth. - Lab Result Diagrams: 05/14/17 05:49 05/14/17 05:49 Labs: Abnormal lab results Hgb 12.4 g/dL (12.9-16.9) L 05/14/17 05:49 MPV 9.0 fL (9.4-12.4) L 05/14/17 05:49 Carbon Dioxide 33 mEq/L (23-29) H 05/14/17 05:49 Glucose 150 mg/dL (70-105) H 05/14/17 05:49 POC Glucose 240 (58-89) H 05/14/17 11:36 Phosphorus 2.2 mg/dL (2.7-4.5) L 05/10/17 03:55 AST 7 Units/L (13-39) L 05/10/17 03:55 ALT 6 Units/L (7-52) L 05/10/17 03:55 Serum Total Protein 6.2 g/dL (6.4-8.9) L 05/10/17 03:55 Albumin 2.8 g/dL (3.5-5.7) L 05/10/17 03:55 Albumin/Globulin Ratio 0.8 (1.1-2.2) L 05/10/17 03:55 HDL Cholesterol 23 mg/dL (40-59) L 05/10/17 03:55 Cholesterol/HDL Ratio 5.5 (0-4.9) H 05/10/17 03:55 Microbiology, Last 48 Hours 05/10/17 17:09 Anaerobic Culture - Preliminary Right Foot At this time, no anaerobic growth is present. The culture will be finalized after 5 days of incubation. 05/10/17 17:09 Wound Culture - Final Right Foot Staphylococcus aureus - VTE Documentation of Mechanical Device: Graduated compression elastic hosiery Consult Discharge Plan - Plan Referrals: Carlton Alcaraz [Primary Care Provider] -
--- NOTE | 2017-05-14 16:52 | Internal Med Progress Note ---
Date of Encounter: 05/14/17 Time of Encounter: 16:49 - Assessment and plan (1) Status post amputation of lesser toe of right foot Current Visit: No Status: Acute Assessment and plan: Management per Podiatry, currently patient doing well. No acute issues. Cultures pending. Secondary closure of surgical wound 05/13Percocet for pain control, Dilaudid for breakthrough. (2) Staphylococcus aureus bacteremia Current Visit: Yes Status: Acute Assessment and plan: Was notified on that blood cultures obtained at [place] (05/09) returned positive for Staph aureus. Patient has had 1 SIRS criteria since arrival, fever. Has had no leukocytosis, tachycardia, tachypnea. Will monitor closely. -Repeat blood cultures 05/13 pending Continue Vanc/Zosyn (3) Cellulitis of right toe Current Visit: No Status: Acute Assessment and plan: Status-post amputation 05/10/17, doing well. Afebrile, no acute distress, CBC from 05/09-05/10 were within normal limits. No signs of sepsis. Continue Vancomycin/Zosyn. Wound culture 05/10/17: Staph aureus, sensitivities pending. (4) Diabetes mellitus with neuropathy Current Visit: No Status: Acute Assessment and plan: glucose spiked yesterday. Reported that patient had 3 cups of jello overnight. Today glucose running 75-130. Acceptable to keep glucose <180, and avoid hypoglycemia. ISS and glucose checks Q4H, space out when glucose more stable. Levemir 30 units HS Qualifiers: Diabetes mellitus type: type 1 Qualified Code(s): E10.40 - Type 1 diabetes mellitus with diabetic neuropathy, unspecified (5) Diabetic infection of right foot Current Visit: Yes Status: Acute (6) DVT prophylaxis Current Visit: No Status: Acute Assessment and plan: Heparin - Subjective Interval history: Patient complaints of recurring foot pain, Has been using Dilaudid states only helps for short while. - Constitutional Vitals: Temp Pulse Resp BP Pulse Ox 97.8 F 74 16 116/69 96 05/14/17 14:45 05/14/17 14:45 05/14/17 14:45 05/14/17 14:45 05/14/17 14:45 Exam: Gen: NAD, AAOx3 CVS: RRR Lungs: CTAB Ext: right foot in wrapping, clean dressing. Skin: warm, dry Internal Medicine: Result - Labs CBC & Chem 7: 05/14/17 05:49 05/14/17 05:49 Labs: Short CBC 05/14/17 Range/Units 05:49 WBC 6.3 (4.3-11.1) K/mcL Hgb 12.4 L (12.9-16.9) g/dL Hct 38.9 (37.5-50.1) % Plt Count 383 (140-400) K/mcL Neutrophils # 3.5 (1.6-8.9) K/mcL BMP 05/14/17 05:49 Sodium 138 Potassium 4.1 Chloride 102 Carbon Dioxide 33 H BUN 11 Creatinine 0.90 Glucose 150 H Calcium 8.7 - ABG Interpretation ABG results: PT/INR, D-dimer PT 11.3 Seconds (9.4-12.1) 05/10/17 03:55 - VTE Documentation of Mechanical Device: Graduated compression elastic hosiery Consult Discharge Plan - Plan Referrals: Carlton Alcaraz [Primary Care Provider] -
[2017-05-14] MEDS: *HR* OxyCODONE/APAP 5/325 TABLET PO PRN (16:53)
[2017-05-14] MEDS: Aspirin 81 MG TAB.CHEW PO SCH (19:56)
[2017-05-14] MEDS: *HR* HYDROmorphone (PF) 1 MG/ML SYRINGE IVP SCH (20:00)
[2017-05-14] MEDS: Insulin DETEMIR 100 UNIT/ML X5UNITS SQ SCH (20:03)
[2017-05-15] MEDS: *HR* HYDROmorphone (PF) 1 MG/ML SYRINGE IVP SCH ×6 (00:07→20:06)
[2017-05-15] MEDS: Piperacillin/Tazobactam 3.375 GM/200 ML BAG IVPB SCH ×3 (03:55→20:02)
[2017-05-15 06:04] LABS: Basophils % 0.3 %; Eosinophils # 0.3 K/mcL (0.0-0.6); Eosinophils % 4.1 %; Hematocrit 40.7 % (37.5-50.1); Hemoglobin 13.5 g/dL (12.9-16.9); Immature Granulocytes % 0.4 % (0-4); Lymphocytes # 1.7 K/mcL (0.6-4.6); Mean Corpuscular HGB Conc 33.2 g/dL (31.6-35.5); Mean Corpuscular Hemoglobin 30.1 pg (28.0-33.3); Mean Corpuscular Volume 90.6 fL (83.0-100.0); Monocytes # 0.5 K/mcL (0.0-1.3); Monocytes % 6.8 %; Neutrophils # 4.6 K/mcL (1.6-8.9); Platelet Count 373 K/mcL (140-400); Red Blood Count 4.49 M/mcL (4.19-5.50); Red Cell Distribution Width 12.6 % (11.5-14.5); Segmented Neutrophils % 64.4 %
[2017-05-15] MEDS: Vancomycin 1,250 MG in D5% in Water 250 ML IVPB SCH (06:08)
[2017-05-15] MEDS: *HR* Heparin 5,000 UNIT/ML VIAL SQ SCH ×2 (06:08→17:05)
[2017-05-15] MEDS: *HR* OxyCODONE/APAP 5/325 TABLET PO PRN ×2 (06:08→18:47)
[2017-05-15 06:18] LABS: BUN/Creatinine Ratio 13 (6-26); Blood Urea Nitrogen 13 mg/dL (6-20); Calcium 9.1 mg/dL (8.6-10.3); Carbon Dioxide 32 mEq/L (23-29); Chloride 103 mEq/L (98-107); Glucose 126 mg/dL (70-105); Osmolality,Calculated 288 (280-300); Potassium 4.6 mEq/L (3.5-5.1); Sodium 138 mEq/L (136-145); eGFR For African Americans > 60 (> 60); eGFR For Non-African Americans > 60 (> 60)
[2017-05-15] MEDS: Insulin LISPRO 300 UNITS/3 ML VIAL SQ SCH ×7 (09:45→20:01)
--- NOTE | 2017-05-15 16:23 | Internal Med Progress Note ---
Date of Encounter: 05/15/17 Time of Encounter: 16:19 - Assessment and plan (1) Status post amputation of lesser toe of right foot Current Visit: No Status: Acute Assessment and plan: Management per Podiatry, currently patient doing well. No acute issues. Cultures pending. Secondary closure of surgical wound 05/13 Percocet for pain control, Dilaudid for breakthrough. (2) Staphylococcus aureus bacteremia Current Visit: Yes Status: Acute Assessment and plan: Was notified on that blood cultures obtained at [place] (05/09) returned positive for Staph aureus. Patient has had 1 SIRS criteria since arrival, fever. Has had no leukocytosis, tachycardia, tachypnea. Will monitor closely. -Repeat blood cultures 05/13: no growth to date Continue Vanc/Zosyn (3) Cellulitis of right toe Current Visit: No Status: Acute Assessment and plan: Status-post amputation 05/10/17, doing well. Afebrile, no acute distress, CBC from 05/09-05/10 were within normal limits. No signs of sepsis. Continue Vancomycin/Zosyn. Wound culture 05/10/17: Staph aureus, resistent to erythromycin and tetracycline (4) Diabetes mellitus with neuropathy Current Visit: No Status: Acute Assessment and plan: glucose spiked yesterday. Reported that patient had 3 cups of jello overnight. Today glucose running 75-130. Acceptable to keep glucose <180, and avoid hypoglycemia. ISS and glucose checks Q4H, space out when glucose more stable. Levemir 30 units HS Qualifiers: Diabetes mellitus type: type 1 Qualified Code(s): E10.40 - Type 1 diabetes mellitus with diabetic neuropathy, unspecified (5) Diabetic infection of right foot Current Visit: Yes Status: Acute (6) DVT prophylaxis Current Visit: No Status: Acute Assessment and plan: Heparin - Subjective Interval history: Patient complaints of recurring foot pain, Switched to PO pain medication yesterday, states it is helping some. Denies fevers/chills, n/v - Constitutional Vitals: Temp Pulse Resp BP Pulse Ox 98.2 F 73 16 134/76 94 05/15/17 14:48 05/15/17 14:48 05/15/17 14:48 05/15/17 14:48 05/15/17 14:48 Exam: Gen: NAD, AAOx3 Observed patient ambulating in hallway today without any difficulty CVS: RRR Lungs: CTAB Ext: right foot in wrapping, clean dressing. Skin: warm, dry Internal Medicine: Result - Labs CBC & Chem 7: 05/15/17 05:27 05/15/17 05:27 Labs: Short CBC 05/15/17 Range/Units 05:27 WBC 7.1 (4.3-11.1) K/mcL Hgb 13.5 (12.9-16.9) g/dL Hct 40.7 (37.5-50.1) % Plt Count 373 (140-400) K/mcL Neutrophils # 4.6 (1.6-8.9) K/mcL BMP 05/15/17 05:27 Sodium 138 Potassium 4.6 Chloride 103 Carbon Dioxide 32 H BUN 13 Creatinine 0.99 Glucose 126 H Calcium 9.1 - ABG Interpretation ABG results: PT/INR, D-dimer PT 11.3 Seconds (9.4-12.1) 05/10/17 03:55 - VTE Documentation of Mechanical Device: Graduated compression elastic hosiery Consult Discharge Plan - Plan Referrals: Carlton Alcaraz [Primary Care Provider] -
[2017-05-15] MEDS: Vancomycin 1,000 MG in D5% in Water 250 ML IVPB SCH (17:07)
[2017-05-15] MEDS: Aspirin 81 MG TAB.CHEW PO SCH (20:06)
[2017-05-15] MEDS: Insulin DETEMIR 100 UNIT/ML X5UNITS SQ SCH (22:13)
[2017-05-16] MEDS: *HR* HYDROmorphone (PF) 1 MG/ML SYRINGE IVP SCH ×7 (00:28→23:43)
[2017-05-16] MEDS: Piperacillin/Tazobactam 3.375 GM/200 ML BAG IVPB SCH ×3 (02:48→19:33)
[2017-05-16] MEDS: *HR* OxyCODONE/APAP 5/325 TABLET PO PRN ×2 (02:52→19:30)
[2017-05-16] MEDS: Vancomycin 1,000 MG in D5% in Water 250 ML IVPB SCH ×2 (06:29→17:36)
[2017-05-16] MEDS: *HR* Heparin 5,000 UNIT/ML VIAL SQ SCH ×2 (06:31→17:35)
[2017-05-16] MEDS: Insulin LISPRO 300 UNITS/3 ML VIAL SQ SCH ×7 (08:45→19:31)
[2017-05-16] MEDS: Insulin DETEMIR 100 UNIT/ML X5UNITS SQ SCH (21:08)
[2017-05-16] MEDS: Aspirin 81 MG TAB.CHEW PO SCH (21:08)
--- NOTE | 2017-05-16 23:00 | Internal Med Progress Note ---
Date of Encounter: 05/16/17 Time of Encounter: 10:57 - Assessment and plan (1) Status post amputation of lesser toe of right foot Current Visit: No Status: Acute Assessment and plan: Management per Podiatry, currently patient doing well. No acute issues. Cultures pending. Secondary closure of surgical wound 05/13 Percocet for pain control, Dilaudid for breakthrough. Anticipate DC tomorrow Need [facility] referral for home assistance of diabetic management, dressing changes, insulin administration and nutritional assistance due to patients low vision and need for assistance. (2) Staphylococcus aureus bacteremia Current Visit: Yes Status: Acute Assessment and plan: Was notified on that blood cultures obtained at [place] (05/09) returned positive for Staph aureus. Patient has had 1 SIRS criteria since arrival, fever. Has had no leukocytosis, tachycardia, tachypnea. Will monitor closely. -Repeat blood cultures 05/13: no growth to date Continue Vanc/Zosyn (3) Cellulitis of right toe Current Visit: No Status: Acute Assessment and plan: Status-post amputation 05/10/17, doing well. Afebrile, no acute distress, CBC from 05/09-05/10 were within normal limits. No signs of sepsis. Continue Vancomycin/Zosyn. Wound culture 05/10/17: Staph aureus, resistent to erythromycin and tetracycline (4) Diabetes mellitus with neuropathy Current Visit: No Status: Acute Assessment and plan: glucose spiked yesterday. Reported that patient had 3 cups of jello overnight. Today glucose running 75-130. Acceptable to keep glucose <180, and avoid hypoglycemia. ISS and glucose checks Q4H, space out when glucose more stable. Levemir 30 units HS Qualifiers: Diabetes mellitus type: type 1 Qualified Code(s): E10.40 - Type 1 diabetes mellitus with diabetic neuropathy, unspecified (5) Diabetic infection of right foot Current Visit: Yes Status: Acute (6) Hyperglycemia due to type 1 diabetes mellitus Current Visit: No Status: Acute Assessment and plan: Will need to increase insulin doses carefully as patient is brittle and has dropped on occasions (7) DVT prophylaxis Current Visit: No Status: Acute Assessment and plan: Heparin - Subjective Interval history: No complaints, no acute events. - Constitutional Vitals: Temp Pulse Resp BP Pulse Ox 97.9 F 64 16 118/67 96 05/16/17 19:17 05/16/17 19:17 05/16/17 19:17 05/16/17 19:17 05/16/17 19:17 Exam: CVS: RRR Lungs: CTAB Ext: right foot in wrapping, clean dressing. Skin: warm, dry Internal Medicine: Result - Labs CBC & Chem 7: 05/15/17 05:27 05/15/17 05:27 - ABG Interpretation ABG results: PT/INR, D-dimer PT 11.3 Seconds (9.4-12.1) 05/10/17 03:55 - VTE Documentation of Mechanical Device: Graduated compression elastic hosiery Consult Discharge Plan - Plan Referrals: Carlton Alcaraz [Primary Care Provider] -
[2017-05-17] MEDS: Piperacillin/Tazobactam 3.375 GM/200 ML BAG IVPB SCH ×3 (03:18→17:30)
[2017-05-17] MEDS: *HR* HYDROmorphone (PF) 1 MG/ML SYRINGE IVP SCH ×5 (04:10→19:51)
[2017-05-17] MEDS: Vancomycin 1,000 MG in D5% in Water 250 ML IVPB SCH ×2 (05:25→17:29)
[2017-05-17] MEDS: *HR* Heparin 5,000 UNIT/ML VIAL SQ SCH ×2 (05:26→17:29)
[2017-05-17] MEDS: *HR* OxyCODONE/APAP 5/325 TABLET PO PRN ×2 (07:01→15:31)
[2017-05-17] MEDS: Insulin LISPRO 300 UNITS/3 ML VIAL SQ SCH ×7 (08:41→20:21)
--- NOTE | 2017-05-17 11:57 | Podiatry Progress Note ---
Date of Encounter: 05/18/17 Time of Encounter: 11:45 - Assessment and Plan (1) Diabetic infection of right foot Current Visit: Yes Status: Acute Incision line healing uneventfully, no signs of dehiscence. Continue current antibiotic therapy. forestry worker coordinating discharge home with [facility]. Dressing changed at bedside, incision line cleansed with saline, pat dry, adaptic applied, 4x4 dry sterile gauze, kerlix and tape. Remain non weight bearing to right foot. F/u with Dr. Simons in one week after discharge from hospital. (2) Cellulitis of right toe Current Visit: No Status: Acute (3) Diabetes mellitus with neuropathy Current Visit: No Status: Acute Qualifiers: Diabetes mellitus type: type 1 Qualified Code(s): E10.40 - Type 1 diabetes mellitus with diabetic neuropathy, unspecified (4) Hepatitis C Current Visit: No Status: Chronic Qualifiers: Viral hepatitis chronicity: chronic Hepatic coma status: without hepatic coma Qualified Code(s): B18.2 - Chronic viral hepatitis C Subjective Interval history: Patient is lying bed. Dressing intact to right foot with small amount of bloody drainage observed to dressing. Patient states his right foot is very painful and rates it a 9 out of 10. Patient states pain medication makes the pain tolerable. No c/o fever, chills, cp, sob, calf pain or flu like symptoms. Objective - Vital Signs Vital Signs: Vital Signs Temp Pulse Resp BP Pulse Ox 05/17/17 10:25 98.2 F 63 16 112/70 97 05/17/17 07:21 98.0 F 59 16 132/81 96 05/17/17 03:48 98.1 F 61 16 124/74 97 05/16/17 19:17 97.9 F 64 16 118/67 96 05/16/17 16:26 97.9 F 63 16 110/68 95 Intake and Output 05/16/17 05/17/17 05/17/17 23:59 07:59 15:59 Intake Total 890 / 890 250 / 250 560 / 560 Output Total 925 / 925 0 / 0 700 / 700 Balance -35 / -35 250 / 250 -140 / -140 Intake: IV Fluids 650 / 650 250 / 250 200 / 200 Zosyn Premix 3.375 GM/200 ML 3. 400 / 400 200 / 200 375 gm In 200 ml @ 50 mls/hr IVPB Q8H [facility]UY Rx#:[id number] Vancocin 1,000 MG In Dextrose 5 250 / 250 250 / 250 % 250 ML @ 167 mls/hr IVPB Q12H THUY Rx#:[id number] Oral 240 / 240 360 / 360 Output: Urine 925 / 925 0 / 0 700 / 700 Other: Meal Dinner Breakfast Percent of Meal Consumed 5% 70% # Bowel Movements 0 0 0 Blood Glucose* 354 95 166 - Exam Exam: General: A&O x3, calm and pleasant, no acute distress. Vascular: pedal pulses palpable, no pallor, no rubor, no cyanosis, no calf pain with manual compression, CFT is immediate to digits #4,#5 right foot. S/P: sutures intact to incision line, no signs of dehiscence, no pus, no odor, no erythema, no odor. Minimal edema. - Lab Result Diagrams: 05/18/17 14:37 05/18/17 14:37 Labs: Abnormal lab results MPV 9.0 fL (9.4-12.4) L 05/15/17 05:27 Carbon Dioxide 32 mEq/L (23-29) H 05/15/17 05:27 Glucose 126 mg/dL (70-105) H 05/15/17 05:27 POC Glucose 166 (58-89) H 05/17/17 11:08 Phosphorus 2.2 mg/dL (2.7-4.5) L 05/10/17 03:55 AST 7 Units/L (13-39) L 05/10/17 03:55 ALT 6 Units/L (7-52) L 05/10/17 03:55 Serum Total Protein 6.2 g/dL (6.4-8.9) L 05/10/17 03:55 Albumin 2.8 g/dL (3.5-5.7) L 05/10/17 03:55 Albumin/Globulin Ratio 0.8 (1.1-2.2) L 05/10/17 03:55 HDL Cholesterol 23 mg/dL (40-59) L 05/10/17 03:55 Cholesterol/HDL Ratio 5.5 (0-4.9) H 05/10/17 03:55 Microbiology, Last 48 Hours 05/10/17 17:09 Anaerobic Culture - Final Right Foot No anaerobes were recovered. 05/13/17 16:55 Blood Culture - Preliminary Peripheral Venipuncture No growth. - VTE Documentation of Mechanical Device: Graduated compression elastic hosiery Consult Discharge Plan - Plan Referrals: Carlton Alcaraz [Primary Care Provider] - Chetan Gray MD [Partnered Physician] - (Office will check with Dr. Gray and will call patient at home with date and time of appt. Thank you)
[2017-05-17] MEDS: Aspirin 81 MG TAB.CHEW PO SCH (19:57)
[2017-05-17] MEDS: Insulin DETEMIR 100 UNIT/ML X5UNITS SQ SCH (19:58)
[2017-05-18] MEDS: *HR* HYDROmorphone (PF) 1 MG/ML SYRINGE IVP SCH ×4 (00:02→12:16)
--- NOTE | 2017-05-18 02:37 | Internal Med Progress Note ---
Date of Encounter: 05/17/17 Time of Encounter: 14:35 - Assessment and plan (1) Status post amputation of lesser toe of right foot Current Visit: No Status: Acute Assessment and plan: Doing well. Wound culture sensitivities available; MSSA resistant to erythromycin and tetracycline. He has grown multiple other organisms in the past in wound cultures as well. Secondary closure of surgical wound 05/13 Percocet for pain control, Dilaudid for breakthrough. -Need [facility] referral for home assistance of diabetic management, dressing changes , insulin administration and nutritional assistance due to patients low vision and need for assistance. -Appreciate Podiatry recommendations on antibiotics upon discharge. (2) Staphylococcus aureus bacteremia Current Visit: Yes Status: Acute Assessment and plan: Was notified on that blood cultures obtained at [place] (05/09) returned positive for Staph aureus. Patient has had 1 SIRS criteria since arrival, fever. Has had no leukocytosis, tachycardia, tachypnea. Will monitor closely. -Repeat blood cultures 05/13: no growth to date Continue Vanc/Zosyn (3) Cellulitis of right toe Current Visit: No Status: Acute Assessment and plan: Status-post amputation 05/10/17, doing well. Afebrile, no acute distress, CBC from 05/09-05/10 were within normal limits. No signs of sepsis. Continue Vancomycin/Zosyn. Wound culture 05/10/17: Staph aureus, resistent to erythromycin and tetracycline (4) Diabetes mellitus with neuropathy Current Visit: No Status: Acute Assessment and plan: glucose spiked yesterday. Reported that patient had 3 cups of jello overnight. Today glucose running 75-130. Acceptable to keep glucose <180, and avoid hypoglycemia. ISS and glucose checks Q4H, space out when glucose more stable. Levemir 30 units HS Qualifiers: Diabetes mellitus type: type 1 Qualified Code(s): E10.40 - Type 1 diabetes mellitus with diabetic neuropathy, unspecified (5) Diabetic infection of right foot Current Visit: Yes Status: Acute (6) Hyperglycemia due to type 1 diabetes mellitus Current Visit: No Status: Acute Assessment and plan: Will need to increase insulin doses carefully as patient is brittle and has dropped on occasions (7) DVT prophylaxis Current Visit: No Status: Acute Assessment and plan: Heparin - Subjective Interval history: No acute events. - Constitutional Vitals: Temp Pulse Resp BP Pulse Ox 97.9 F 65 16 116/71 98 05/17/17 19:31 05/17/17 19:31 05/17/17 19:31 05/17/17 19:31 05/17/17 19:51 Exam: Gen: NAD, AAOx3 CVS: RRR Lungs: CTAB Ext: right foot wrapped, clean, dry Internal Medicine: Result - Labs CBC & Chem 7: 05/15/17 05:27 05/15/17 05:27 - ABG Interpretation ABG results: PT/INR, D-dimer PT 11.3 Seconds (9.4-12.1) 05/10/17 03:55 - VTE Documentation of Mechanical Device: Graduated compression elastic hosiery Consult Discharge Plan - Plan Referrals: Carlton Alcaraz [Primary Care Provider] - Chetan Gray MD [Partnered Physician] - (Office will check with Dr. Gray and will call patient at home with date and time of appt. Thank you)
[2017-05-18] MEDS: Piperacillin/Tazobactam 3.375 GM/200 ML BAG IVPB SCH ×2 (04:06→12:16)
[2017-05-18] MEDS: Vancomycin 1,000 MG in D5% in Water 250 ML IVPB SCH ×2 (05:10→17:51)
[2017-05-18] MEDS: *HR* OxyCODONE/APAP 5/325 TABLET PO PRN ×2 (05:13→21:08)
[2017-05-18] MEDS: *HR* Heparin 5,000 UNIT/ML VIAL SQ SCH ×2 (05:14→17:51)
[2017-05-18] MEDS: Insulin LISPRO 300 UNITS/3 ML VIAL SQ SCH ×7 (08:35→21:09)
[2017-05-18] MEDS: 0.9 % Sodium Chloride 1,000 ML IVC SCH (08:38)
[2017-05-18 15:06] LABS: Basophils % 0.5 %; Eosinophils # 0.6 K/mcL (0.0-0.6); Eosinophils % 7.6 %; Hemoglobin 13.1 g/dL (12.9-16.9); Immature Granulocytes % 0.4 % (0-4); Lymphocytes # 2.1 K/mcL (0.6-4.6); Lymphocytes % 28.7 %; Mean Corpuscular HGB Conc 32.8 g/dL (31.6-35.5); Mean Corpuscular Hemoglobin 30.1 pg (28.0-33.3); Monocytes # 0.5 K/mcL (0.0-1.3); Monocytes % 6.6 %; Neutrophils # 4.1 K/mcL (1.6-8.9); Platelet Count 352 K/mcL (140-400); Red Blood Count 4.35 M/mcL (4.19-5.50); Red Cell Distribution Width 13.1 % (11.5-14.5); Segmented Neutrophils % 56.2 %
[2017-05-18 15:24] LABS: Calcium 8.7 mg/dL (8.6-10.3); Carbon Dioxide 30 mEq/L (23-29); Chloride 103 mEq/L (98-107); Magnesium 1.9 mg/dL (1.6-2.6); Potassium 5.5 mEq/L (3.5-5.1); Sodium 136 mEq/L (136-145)
[2017-05-18 15:29] LABS: BUN/Creatinine Ratio 16 (6-26); Blood Urea Nitrogen 19 mg/dL (6-20); Glucose 314 mg/dL (70-105); Osmolality,Calculated 296 (280-300); eGFR For African Americans > 60 (> 60); eGFR For Non-African Americans > 60 (> 60)
--- NOTE | 2017-05-18 17:20 | Internal Med Progress Note ---
Date of Encounter: 05/18/17 Time of Encounter: 17:14 - Assessment and plan (1) Osteomyelitis of toe of right foot Current Visit: No Status: Acute Assessment and plan: s/p amputation of Rt foot 3rd toe May need at least 2 weeks of IV abx Wound cx from 05/10/17 growing MSSA He did have blood cx 4/4 positive from 05/09/17 from [place] repeat blood cx no growth 05/13/17 ID consulted for abx management d/c Zosyn cont Vancomycin (2) Diabetic infection of right foot Current Visit: Yes Status: Acute Assessment and plan: cont wound care as per Small Business Representative (3) Diabetes mellitus Current Visit: No Status: Acute Assessment and plan: on ISS + Levemir Qualifiers: Diabetes mellitus type: type 1 Diabetes mellitus complication status: with neurologic complications Diabetes mellitus complication detail: with polyneuropathy Qualified Code(s): E10.42 - Type 1 diabetes mellitus with diabetic polyneuropathy (4) Staphylococcus aureus bacteremia Current Visit: Yes Status: Acute Assessment and plan: Was notified on that blood cultures obtained at [place] (05/09) returned positive for Staph aureus Repeat blood cultures 05/13: no growth to date Continue Vanc (5) Constipation Current Visit: Yes Status: Acute Assessment and plan: c/o constipation Started him on bowel regimen + lactulose Qualifiers: Qualified Code(s): K59.00 - Constipation, unspecified - Subjective Interval history: Mr. Martinez is a 41 year old diabetic male who has had previous amputation of right foot digits 1 and 2 with the second digit being amputated this past summer. He says Wednesday evening he was getting up in the middle the night to go to the bathroom and he was barefoot and as he was going into the bathroom he kicked the bathroom door. He says he does not have much feeling in his foot however this hurt quite a bit. He went back to bed and woke up in the afternoon and says that his toe was turning dark and it was very swollen. His foor X ray showed displaced fx of 3rd toe middle phalanx and subluxed at the DIP joint. Pt was admitted here for Rt foot 3rd toe osteomyelitis and foot cellulites. He was started on empirical abx Zosyn and Vancomycin. He was evaluated by Dr. Simons , who did open amputation of Rt foot 3rd toe on 05/10/17 and secondary closure of wound on 05/13/17. His wound cx is growing MSSA. His pain is tolerable with current medications. Denied any CP / SOB. no fever - Constitutional Vitals: Temp Pulse Resp BP Pulse Ox 98 F 72 16 121/70 96 05/18/17 10:43 05/18/17 10:43 05/18/17 10:43 05/18/17 10:43 05/18/17 10:43 General appearance: Present: A&O X 3, no acute distress - Head Head exam: Present: atraumatic, normal inspection - Neck Neck exam general surgery: Present: supple - Respiratory Respiratory exam: Present: decreased breath sounds. Absent: rales, respiratory distress, rhonchi, wheezes - Cardiovascular Cardiovascular exam: Present: RRR, +S1, +S2. Absent: tachycardia - GI/Abdominal GI/Abdominal exam: Present: normal bowel sounds, soft. Absent: rebound, rigid, tenderness - Extremities Exam Extremities exam: Absent: calf tenderness, pedal edema, tenderness Additional comments: Dressing placed on Rt foot.. Mild swelling noticed all over the foot. - Back Exam Back exam: Absent: CVA tenderness (L), CVA tenderness (R) - Psychiatric Psychiatric exam: Present: depressed Internal Medicine: Result - Labs CBC & Chem 7: 05/18/17 14:37 05/18/17 14:37 Labs: Short CBC 05/18/17 Range/Units 14:37 WBC 7.3 (4.3-11.1) K/mcL Hgb 13.1 (12.9-16.9) g/dL Hct 40.0 (37.5-50.1) % Plt Count 352 (140-400) K/mcL Neutrophils # 4.1 (1.6-8.9) K/mcL BMP 05/18/17 14:37 Sodium 136 Potassium 5.5 H Chloride 103 Carbon Dioxide 30 H BUN 19 Creatinine 1.17 Glucose 314 H Calcium 8.7 - ABG Interpretation ABG results: PT/INR, D-dimer PT 11.3 Seconds (9.4-12.1) 05/10/17 03:55 - VTE Documentation of Mechanical Device: Graduated compression elastic hosiery Consult Discharge Plan - Plan Referrals: Carlton Alcaraz [Primary Care Provider] - Chetan Gray MD [Partnered Physician] - (Office will check with Dr. Gray and will call patient at home with date and time of appt. Thank you)
[2017-05-18] MEDS ORDERED: Lactulose Oral Soln 20 GM/30 ML UDC PO PRN (17:26)
[2017-05-18] MEDS ORDERED: Sennosides/Docusate Sodium TABLET PO PRN (17:27)
[2017-05-18] MEDS: *HR* HYDROmorphone (PF) 1 MG/ML SYRINGE IVP PRN ×2 (17:52→22:45)
[2017-05-18] MEDS: Insulin DETEMIR 100 UNIT/ML X5UNITS SQ SCH (21:08)
[2017-05-18] MEDS: Aspirin 81 MG TAB.CHEW PO SCH (21:08)
[2017-05-19] MEDS: *HR* HYDROmorphone (PF) 1 MG/ML SYRINGE IVP PRN ×5 (04:09→21:50)
[2017-05-19] MEDS: *HR* Heparin 5,000 UNIT/ML VIAL SQ SCH ×2 (06:03→17:45)
[2017-05-19] MEDS: Vancomycin 1,000 MG in D5% in Water 250 ML IVPB SCH (06:03)
[2017-05-19 06:19] LABS: Basophils % 0.6 %; Eosinophils # 0.6 K/mcL (0.0-0.6); Eosinophils % 8.8 %; Hematocrit 44.2 % (37.5-50.1); Hemoglobin 14.3 g/dL (12.9-16.9); Immature Granulocytes % 0.3 % (0-4); Lymphocytes # 2.2 K/mcL (0.6-4.6); Lymphocytes % 32.2 %; Mean Corpuscular HGB Conc 32.4 g/dL (31.6-35.5); Mean Corpuscular Hemoglobin 29.7 pg (28.0-33.3); Mean Corpuscular Volume 91.7 fL (83.0-100.0); Mean Platelet Volume 8.9 fL (9.4-12.4); Monocytes # 0.4 K/mcL (0.0-1.3); Monocytes % 5.8 %; Neutrophils # 3.5 K/mcL (1.6-8.9); Platelet Count 373 K/mcL (140-400); Red Blood Count 4.82 M/mcL (4.19-5.50); Red Cell Distribution Width 13.1 % (11.5-14.5); Segmented Neutrophils % 52.3 %
[2017-05-19 06:50] LABS: BUN/Creatinine Ratio 17 (6-26); Blood Urea Nitrogen 17 mg/dL (6-20); Calcium 9.1 mg/dL (8.6-10.3); Carbon Dioxide 29 mEq/L (23-29); Chloride 103 mEq/L (98-107); Glucose 269 mg/dL (70-105); Magnesium 1.9 mg/dL (1.6-2.6); Osmolality,Calculated 297 (280-300); Potassium 4.6 mEq/L (3.5-5.1); Sodium 138 mEq/L (136-145); eGFR For African Americans > 60 (> 60); eGFR For Non-African Americans > 60 (> 60)
[2017-05-19] MEDS ORDERED: Aminoglycoside Consult 1 EACH MC ONE (07:34)
[2017-05-19] MEDS: Insulin LISPRO 300 UNITS/3 ML VIAL SQ SCH ×7 (07:50→21:51)
[2017-05-19] MEDS: *HR* OxyCODONE/APAP 5/325 TABLET PO PRN (07:50)
--- NOTE | 2017-05-19 14:00 | Infectious Disease Consult ---
Date of Encounter: 05/19/17 Time of Encounter: 13:55 Assessment and Plan (1) Severe sepsis Status: Acute Assessment and plan: The patient had three SIRS criteria plus lactic acidosis. Likely secondary to right foot gangrene and bacteremia. The patient has been afebrile. Leukocytosis and tachycardia have resolved. Blood cultures drawn 05/09/17 were positive 1/2 sets for MSSA. Repeat blood culture drawn 05/13/17 x 1 set is NGTD. (2) Staphylococcus aureus bacteremia Status: Acute Assessment and plan: Causative organism MSSA. Source likely the right foot toe infection. Uncomplicated. Blood cultures drawn 05/09/17 were positive 1/2 sets for MSSA. Repeat blood culture drawn 05/13/17 x 1 set is NGTD. The patient has one major and one minor Modified Clark's Criteria. He has no endocarditis stigmata. Get a TTE. If negative, the patient will likely require a ANNIE. Discontinue Vancomycin. Start cefazolin 2 grams IV Q8H. Duration of treatment depends on the clinical picture. The patient will require at least two weeks of IV antibiotics, but he tells me he is not willing to do IV antibiotics at home or go to an ECF. Monitor renal function and dose-adjust antibiotics. (3) Osteomyelitis of toe of right foot Status: Acute Assessment and plan: Causative organism MSSA. Likely secondary to traumatic injury. X-ray of the right foot showed a displaced fracture of the third toe middle phalanx. No baseline inflammatory markers obtained prior to surgery. Podiatry consulted. Status post incision to bone cortex for OM and amputation of the right foot toe #3 05/10/[address] Simons. Toe pathology positive for OM. Operative note reviewed. Purulence noted in the toe. No changes of the metatarsal noted intra-op. Cultures positive for MSSA. Status post secondary closure 05/13/17. No indication of persistent infection noted. Continue antibiotics as above. Wound care and activity restrictions as per the podiatry team. (4) Cellulitis of right toe Status: Acute Assessment and plan: Location: Right foot third toe. Causative organism likely MSSA. Per the medical record. Unsure if improved since the patient refuses to let me remove the dressing to look at the site and he doesn't know what it looked like originally. Continue antibiotics as above. (5) Status post amputation of lesser toe of right foot Status: Acute (6) Hyperglycemia due to type 1 diabetes mellitus Status: Acute Assessment and plan: Blood sugars continue to run high. The patient needs aggressive glucose monitoring and control. (7) Hepatitis C Status: Chronic Assessment and plan: States he is unsure how he got it. Denies IVDU. Has not been treated. Qualifiers: Viral hepatitis chronicity: chronic Hepatic coma status: without hepatic coma Qualified Code(s): B18.2 - Chronic viral hepatitis C (8) Diabetes mellitus with neuropathy Status: Acute Assessment and plan: Type I. Diagnosed at . Uncontrolled. Hgb A1C 8.4% in November. Re-check A1C. Recommend aggressive glucose monitoring and control to promote wound healing and prevent re-infection. Management per the primary team. Qualifiers: Diabetes mellitus type: type 1 Qualified Code(s): E10.40 - Type 1 diabetes mellitus with diabetic neuropathy, unspecified Infectious Disease HPI - Data of Consult Patient: new to practice Consult date: 05/19/17 Requesting Physician: Raza Ta MD Primary Care Provider: Carlton Alcaraz - Consult Narrative Reason for consult: Osteomyelitis, bacteremia History of present illness: Mr. Martinez is a 41 year old male the past medical history of hepatitis C and diabetes. The patient was managed the hospital May 09 for right foot gangrene and cellulitis. We are consulted May 19 for antibiotic recommendations for bacteremia and osteomyelitis of the right foot. Briefly, the patient is a 41-year-old male with past medical history as stated above. The patient presented to the emergency department with complaints of increased pain and swelling of his right foot third toe with associated chills and rigors. He states he sustained an injury to his toe days prior to admission when he stubbed it on the bathroom door when he got up to go to the bathroom at night. Upon arrival to the ER, the patient was febrile with a temperature of 101.8. He had tachycardia and neutrophilic predominance leukocytosis. He also had lactic acidosis. Altered were obtained 2 sets and came back +1 out of 2 sets for MSSA. He also had a wound culture obtained that was positive for MSSA as well. Chest x-ray was negative. Foot x-ray was done that showed displaced fracture of the third toe middle phalanx. He was physically transferred here for further evaluation and podiatry consult. Since admission, the patient had a fever with a MAXIMUM TEMPERATURE of 101.3. Podiatry saw him and took him to the operating room on May 10 and completed an amputation of toe #3. Operative note revealed pus in the toe, but no evidence of metatarsal involvement. Pathology of the toe that was removed was positive for osteomyelitis. Intraoperative cultures were obtained and positive for MSSA. His tachycardia has resolved. He was taken back to the operating room on May 13 for secondary closure. He had repeat blood cultures drawn on May 13 that were -1 out of 1 set. Currently, the patient is on IV vancomycin. His most recent PEG trough was 16.9. We've been asked to evaluate and make further recommendations. During my exam today, the patient states that overall he feels better. He reports pain, swelling, and discoloration of the right toe #3 after he sustained an injury the night before. He reported radiation up the leg to the lower back. He was unable to get to the hospital until a day later. He reports chills and rigors, but no fevers. Denies headache, neck pain, congestion, earache, sore throat. Denies chest pain, shortness of breath, or cough. Denies nausea, vomiting, or diarrhea. States his last BM was this morning. Continues to report pain at the surgical site. States he has not looked at it since surgery and he is unsure if it looks better. He doesn't know if the redness and swelling went up the leg or not. Denies oral thrush or skin lesions. The patient lives at home alone in an apartment that he says is not conducive to doing IV antibiotics at home. He refuses to go to an ECF. He denies tobacco, alcohol, or illicit drug use. He is disabled to work. CC: Raza Ta MD Past Med Surg Social Fam HX - Past Medical History Attestation: Yes The following information was validated with the patient. Source: patient, old records reviewed, nursing notes reviewed Medical history: diabetes (Uncontrolled), hepatitis (Hepatitis C) Psychiatric history: no psych history - Past Surgical History Surgical History: non-contributory - Social History Smoking Status: Never smoker Smokeless Tobacco Status: Yes Alcohol use: none Drug use: none Occupational status: disabled Current living situation: Home - Independent Activity Level: Independent ambulation Recent Out of Country Travel Within the Last 8 Weeks: No Exposure or Possible Exposure to Illness During Travel: No - Family History Mother Hx Family Cardiac Disorders: Yes (htn) Infectious Disease-CN:Meds Aspirin 81 mg PO DAILY 10/05/16 [History] Insulin ASPART [NovoLOG] 0 - 20 units SQ TID PRN #1 vial 12/18/16 [Rx] Cholecalciferol (D-3) [Vitamin D] 5,000 unit PO DAILY 05/10/17 [History] Insulin Glargine [Lantus] 25 unit SQ 2200 05/10/17 [History] 3 Allergy/AdvReac Type Severity Reaction Status Date / Time No Known Allergies Allergy Verified 05/10/17 13:48 All systems: reviewed and no additional remarkable complaints except as stated Exam - Constitutional Vitals: Temp Pulse Resp BP Pulse Ox 98.1 F 77 16 120/69 96 05/19/17 10:47 05/19/17 10:47 05/19/17 10:47 05/19/17 10:47 05/19/17 10:47 General appearance: average body habitus, cooperative, no acute distress - Head Head exam: Present: atraumatic, normal inspection, normocephalic - Eye Eye exam: Absent: normal appearance (Right eye atrophy noted.), PERRL Additional comments: Left eye pupil responsive and brisk. Left EOM intact. No subconjunctival hemorrhage noted. - ENT ENT exam: Present: mucous membranes moist - Neck Neck exam: Present: normal inspection - Respiratory Respiratory exam: Present: CTAB. Absent: rales, respiratory distress, rhonchi, wheezes - Cardiovascular Cardiovascular exam: Present: RRR, +S1, +S2 - GI/Abdominal GI/Abdominal exam: Present: normal bowel sounds, soft. Absent: distended, tenderness - Extremities Exam Extremities exam: Present: tenderness (right foot). Absent: pedal edema Additional comments: Right foot dressing C/D/I. Patient declines allowing me to remove the dressing since the dressing change was already done today. - Back Exam Back exam: Present: normal inspection. Absent: paraspinal tenderness, vertebral tenderness - Neurological Exam Neurological exam: Present: alert, oriented X3, no focal deficits - Psychiatric Psychiatric exam: Present: normal affect, normal mood - Skin Skin exam: Present: dry, intact, normal color, warm Additional comments: No endocarditis stigmata noted. Infectious Disease CN: Results - Labs CBC & Chem 7: 05/19/17 05:21 05/19/17 05:21 Cultures: Cultures 05/13/17 16:55 Blood Culture - Final Peripheral Venipuncture No growth. 05/10/17 17:09 Anaerobic Culture - Final Right Foot No anaerobes were recovered. 05/10/17 17:09 Wound Culture - Final Right Foot Staphylococcus aureus - VTE Documentation of Mechanical Device: Graduated compression elastic hosiery Consult Discharge Plan - Plan Referrals: Carlton Alcaraz [Primary Care Provider] - Chetan Gray MD [Partnered Physician] - (Office will check with Dr. Gray and will call patient at home with date and time of appt. Thank you) - Attending Attestation I examined this patient and my medical decision-making was reviewed with the Resident Physician. I agree with the documented findings, disposition and treatment plan as described except to the extent set forth below. This is an addendum to original report dictated by Batool Barraza CNP. Please refer to Maribel note for full detail. 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 Patient had an x-ray which showed a displaced fracture and gangrene in the toe. On admission patient was noted to be in severe sepsis. Cultures were obtained and cultures were positive for MSSA so was the wound culture. Patient was taken to the OR on the and had an I&D done. Apparently there was significant purulence. Patient has been on vancomycin. Currently patient appears to be comfortable. We will stop the vancomycin and start the patient on Ancef. Patient will need a ANNIE prior to discharge. Duration of treatment depends on the clinical picture and that the findings. Monitor labs for drug toxicity.
--- NOTE | 2017-05-19 14:27 | Podiatry Progress Note ---
Date of Encounter: 05/19/17 Time of Encounter: 12:00 - Assessment and Plan (1) Diabetic infection of right foot Current Visit: Yes Status: Acute Continue antibiotic coverage- Zosyn was discontinued, on vancomycin at this time. ID consult and recommendations appreciated Intra op cultures SA on final- Monitor WBC and renal function (2) Cellulitis of right toe Current Visit: No Status: Acute s/p amputation Continue current antibiotic coverage (3) Hyperglycemia due to type 1 diabetes mellitus Current Visit: No Status: Acute Consult placed for nutritional services consult for diabetic education Patient will need [facility] for home assistance of diabetic management, dressing changes, insulin administration and nutritional assistance due to patients low vision and need for assistance. (4) Status post amputation of lesser toe of right foot Current Visit: No Status: Acute Assessed at bedside, dressing changed Surgical dressing removed assessed, cleansed with saline, pat dry sterile 4x4. adaptic, 4x4 and kerlex applied. Patient requested that CITLALI not be reapplied at this time. ID has been consulted for IV antibiotic therapy recommendations Patient has SW on board to set up [facility] for medication management - states apartment is not acceptable for HHC- Will need appointment with podiatry 1 week after discharge Subjective Interval history: Patient s/p #1: Incision of bone cortex for osteomyelitis toe #3 right foot and #2: Open amputation toe #3 right on 05/10/2017 followed by #1: Secondary closure surgical wound per on 05/14/2017 Patient resting in bed. Surgical dressing intact. No drainage to dressing. Patient has been NWB to foot. States he still has pain to his foot. Patient denies any known fevers, chills, n/v or flu like symptoms. Denies calf pain or SOB. Afebrile. VS stable. Wbc 6.3. Patient awaiting recommendations per ID for IV antibiotics. Per social work note patients apartment not suitable for HHC. Vital Signs Temp Pulse Resp BP Pulse Ox 05/19/17 10:47 98.1 F 77 16 120/69 96 05/19/17 06:52 98.2 F 61 16 123/77 95 05/19/17 03:57 98.1 F 57 16 118/74 98 05/18/17 21:14 97 05/18/17 20:04 98.1 F 62 16 127/75 97 Objective - Vital Signs Vital Signs: Vital Signs Temp Pulse Resp BP Pulse Ox 05/19/17 10:47 98.1 F 77 16 120/69 96 05/19/17 06:52 98.2 F 61 16 123/77 95 05/19/17 03:57 98.1 F 57 16 118/74 98 05/18/17 21:14 97 05/18/17 20:04 98.1 F 62 16 127/75 97 Intake and Output 05/18/17 05/19/17 05/19/17 23:59 07:59 15:59 Intake Total 1350 / 1350 240 / 240 960 / 960 Output Total 250 / 250 200 / 200 Balance 1100 / 1100 40 / 40 960 / 960 Intake: IV Fluids 1250 / 1250 0.9 % Sodium Chloride 1,000 ML 1000 / 1000 @ 75 mls/hr IVC .[id number] [facility] Rx #:[id number] Vancocin 1,000 MG In Dextrose 5 250 / 250 % 250 ML @ 167 mls/hr IVPB Q12H [facility] Rx#:[id number] Oral 100 / 100 240 / 240 960 / 960 Output: Urine 250 / 250 200 / 200 Other: Meal Dinner snack Lunch Percent of Meal Consumed 10% 100% 100% Weight 81.44 kg Blood Glucose* 93 246 141 Patient Weight 05/19/17 23:59 Weight 81.44 kg - Exam Exam: Awake, alert and oriented x3 minimal sensation to light/moderate touch Skin warm toes to tibia Cap refill <3 seconds No edema Strength 5/5 Pulses palpable DP/PT No calf pain with manual compression. Surgical incision clean dry and intact. Sutures intact No maceration No clinical signs of dehiscence. No clinical signs of infection Minimal surrounding edema, erythema or warmth. No drainage. - Lab Result Diagrams: 05/19/17 05:21 05/19/17 05:21 Labs: Abnormal lab results MPV 8.9 fL (9.4-12.4) L 05/19/17 05:21 Glucose 269 mg/dL (70-105) H 05/19/17 05:21 POC Glucose 141 (58-89) H 05/19/17 10:50 Phosphorus 2.2 mg/dL (2.7-4.5) L 05/10/17 03:55 AST 7 Units/L (13-39) L 05/10/17 03:55 ALT 6 Units/L (7-52) L 05/10/17 03:55 Serum Total Protein 6.2 g/dL (6.4-8.9) L 05/10/17 03:55 Albumin 2.8 g/dL (3.5-5.7) L 05/10/17 03:55 Albumin/Globulin Ratio 0.8 (1.1-2.2) L 05/10/17 03:55 HDL Cholesterol 23 mg/dL (40-59) L 05/10/17 03:55 Cholesterol/HDL Ratio 5.5 (0-4.9) H 05/10/17 03:55 Microbiology, Last 48 Hours 05/13/17 16:55 Blood Culture - Final Peripheral Venipuncture No growth. - VTE Documentation of Mechanical Device: Graduated compression elastic hosiery Consult Discharge Plan - Plan Referrals: Carlton Alcaraz [Primary Care Provider] - Chetan Gray MD [Partnered Physician] - (Office will check with Dr. Gray and will call patient at home with date and time of appt. Thank you)
[2017-05-19] MEDS ORDERED: ceFAZolin 2,000 MG in D5% in Water 100 ML IVPB SCH (16:00)
--- NOTE | 2017-05-19 17:12 | Internal Med Progress Note ---
Date of Encounter: 05/19/17 Time of Encounter: 17:10 - Assessment and plan (1) Osteomyelitis of toe of right foot Current Visit: No Status: Acute Assessment and plan: s/p amputation of Rt foot 3rd toe May need at least 2 weeks of IV abx Wound cx from 05/10/17 growing MSSA He did have blood cx 4/4 positive from 05/09/17 from [place] repeat blood cx no growth 05/13/17 ID consulted for abx management changed abx to Ancef today It does not appear that he has IE.. however will get 2 D Echo for now Dispo: Pt does need IV abx.. But he does not want to go home with IV abx due to his home situation, also he does not want to go ECF too. will talk to d/c planning team in AM about other options (2) Diabetic infection of right foot Current Visit: Yes Status: Acute Assessment and plan: cont wound care as per Cage Manager (3) Diabetes mellitus Current Visit: No Status: Acute Assessment and plan: on ISS + Levemir Qualifiers: Diabetes mellitus type: type 1 Diabetes mellitus complication status: with neurologic complications Diabetes mellitus complication detail: with polyneuropathy Qualified Code(s): E10.42 - Type 1 diabetes mellitus with diabetic polyneuropathy (4) Staphylococcus aureus bacteremia Current Visit: Yes Status: Acute Assessment and plan: Was notified on that blood cultures obtained at [place] (05/09) returned positive for Staph aureus Repeat blood cultures 05/13: no growth to date Switched to Ancef (5) Constipation Current Visit: Yes Status: Acute Assessment and plan: c/o constipation Started him on bowel regimen + lactulose Qualifiers: Qualified Code(s): K59.00 - Constipation, unspecified - Subjective Interval history: Mr. Martinez is a 41 year old diabetic male who has had previous amputation of right foot digits 1 and 2 with the second digit being amputated this past summer. He says Wednesday evening he was getting up in the middle the night to go to the bathroom and he was barefoot and as he was going into the bathroom he kicked the bathroom door. He says he does not have much feeling in his foot however this hurt quite a bit. He went back to bed and woke up in the afternoon and says that his toe was turning dark and it was very swollen. His foor X ray showed displaced fx of 3rd toe middle phalanx and subluxed at the DIP joint. Pt was admitted here for Rt foot 3rd toe osteomyelitis and foot cellulites. He was started on empirical abx Zosyn and Vancomycin. He was evaluated by Dr. Simons , who did open amputation of Rt foot 3rd toe on 05/10/17 and secondary closure of wound on 05/13/17. His wound cx is growing MSSA. His pain is tolerable with current medications. Denied any CP / SOB. no fever. No events over night - Constitutional Vitals: Temp Pulse Resp BP Pulse Ox 97.8 F 78 15 123/75 97 05/19/17 14:52 05/19/17 14:52 05/19/17 14:52 05/19/17 14:52 05/19/17 14:52 General appearance: Present: A&O X 3, no acute distress - Head Head exam: Present: atraumatic, normal inspection - Neck Neck exam general surgery: Present: supple - Respiratory Respiratory exam: Present: decreased breath sounds. Absent: rales, respiratory distress, rhonchi, wheezes - Cardiovascular Cardiovascular exam: Present: RRR, +S1, +S2. Absent: tachycardia - GI/Abdominal GI/Abdominal exam: Present: normal bowel sounds, soft. Absent: rebound, rigid, tenderness - Extremities Exam Extremities exam: Absent: calf tenderness, pedal edema, tenderness Additional comments: mild discharge and erythema noticed around the surgical incision area over Rt foot - Back Exam Back exam: Absent: CVA tenderness (L), CVA tenderness (R) - Psychiatric Psychiatric exam: Present: normal affect, normal mood Internal Medicine: Result - Labs CBC & Chem 7: 05/19/17 05:21 05/19/17 05:21 Labs: Short CBC 05/19/17 Range/Units 05:21 WBC 6.7 (4.3-11.1) K/mcL Hgb 14.3 (12.9-16.9) g/dL Hct 44.2 (37.5-50.1) % Plt Count 373 (140-400) K/mcL Neutrophils # 3.5 (1.6-8.9) K/mcL BMP 05/19/17 05:21 Sodium 138 Potassium 4.6 Chloride 103 Carbon Dioxide 29 BUN 17 Creatinine 1.02 Glucose 269 H Calcium 9.1 - ABG Interpretation ABG results: PT/INR, D-dimer PT 11.3 Seconds (9.4-12.1) 05/10/17 03:55 - VTE Documentation of Mechanical Device: Graduated compression elastic hosiery Consult Discharge Plan - Plan Referrals: Carlton Alcaraz [Primary Care Provider] - Chetan Gray MD [Partnered Physician] - (Office will check with Dr. Gray and will call patient at home with date and time of appt. Thank you)
[2017-05-19] MEDS: CeFAZolin Premix DUPLEX 2,000 MG/50 ML BAG IVPB SCH ×2 (17:22→23:05)
[2017-05-19] MEDS: Aspirin 81 MG TAB.CHEW PO SCH (21:50)
[2017-05-19] MEDS: Insulin DETEMIR 100 UNIT/ML X5UNITS SQ SCH (21:50)
[2017-05-19] MEDS: *HR* OxyCODONE/APAP 7.5/325 TABLET PO PRN (23:04)
[2017-05-20] MEDS: *HR* HYDROmorphone (PF) 1 MG/ML SYRINGE IVP PRN ×4 (05:41→22:13)
[2017-05-20] MEDS: *HR* Heparin 5,000 UNIT/ML VIAL SQ SCH ×2 (05:41→18:39)
[2017-05-20] MEDS: *HR* OxyCODONE/APAP 7.5/325 TABLET PO PRN ×2 (08:24→18:49)
[2017-05-20] MEDS: CeFAZolin Premix DUPLEX 2,000 MG/50 ML BAG IVPB SCH ×3 (08:25→23:31)
[2017-05-20] MEDS: Insulin LISPRO 300 UNITS/3 ML VIAL SQ SCH ×7 (08:26→22:02)
--- NOTE | 2017-05-20 11:46 | Infectious Disease Progress No ---
Date of Encounter: 05/20/17 Time of Encounter: 11:44 - Assessment and Plan (1) Severe sepsis Current Visit: Yes Status: Acute The patient had three SIRS criteria plus lactic acidosis. Likely secondary to right foot gangrene and bacteremia. The patient has been afebrile. Leukocytosis and tachycardia have resolved. Blood cultures drawn 05/09/17 were positive 1/2 sets for MSSA. Repeat blood culture drawn 05/13/17 x 1 set is negative. (2) Staphylococcus aureus bacteremia Current Visit: Yes Status: Acute Causative organism MSSA. Source likely the right foot toe infection. Uncomplicated. Blood cultures drawn 05/09/17 were positive 1/2 sets for MSSA. Repeat blood culture drawn 05/13/17 x 1 set is NGTD. The patient has one major and one minor Modified Clark's Criteria. He has no endocarditis stigmata. Get a TTE. If negative, the patient will likely require a ANNIE. Continue cefazolin 2 grams IV Q8H. Duration of treatment depends on the clinical picture. The patient will require at least two weeks of IV antibiotics, but he tells me he is not willing to do IV antibiotics at home or go to an ECF. Monitor renal function and dose-adjust antibiotics. (3) Osteomyelitis of toe of right foot Current Visit: Yes Status: Acute Causative organism MSSA. Likely secondary to traumatic injury. X-ray of the right foot showed a displaced fracture of the third toe middle phalanx. No baseline inflammatory markers obtained prior to surgery. Podiatry consulted. Status post incision to bone cortex for OM and amputation of the right foot toe #3 05/10/[address] Simons. Toe pathology positive for OM. Operative note reviewed. Purulence noted in the toe. No changes of the metatarsal noted intra-op. Cultures positive for MSSA. Status post secondary closure 05/13/17. No indication of persistent infection noted. Continue antibiotics as above. Wound care and activity restrictions as per the podiatry team. (4) Cellulitis of right toe Current Visit: Yes Status: Acute Location: Right foot third toe. Causative organism likely MSSA. Per the medical record. Continue antibiotics as above. (5) Status post amputation of lesser toe of right foot Current Visit: Yes Status: Acute (6) Hyperglycemia due to type 1 diabetes mellitus Current Visit: Yes Status: Acute Blood sugars continue to run high. The patient needs aggressive glucose monitoring and control. (7) Hepatitis C Current Visit: No Status: Chronic States he is unsure how he got it. Denies IVDU. Has not been treated. Qualifiers: Viral hepatitis chronicity: chronic Hepatic coma status: without hepatic coma Qualified Code(s): B18.2 - Chronic viral hepatitis C (8) Diabetes mellitus with neuropathy Current Visit: No Status: Acute Type I. Diagnosed at . Uncontrolled. Hgb A1C 8.4% in November. Re-check A1C. Recommend aggressive glucose monitoring and control to promote wound healing and prevent re-infection. Management per the primary team. Qualifiers: Diabetes mellitus type: type 1 Qualified Code(s): E10.40 - Type 1 diabetes mellitus with diabetic neuropathy, unspecified - Subjective Interval history: Patient seen and examined. No acute events noted overnight. Patient reports continued pain in the right foot. Denies fevers, chills, or rigors. Denies chest pain, shortness of breath, or cough. Denies nausea, vomiting, or diarrhea. Denies abdominal pain, urinary complaints or appetite changes. Denies oral thrush or new skin lesions. Infect Dis PN-Objective Data - Labs CBC & Chem 7: 05/19/17 05:21 05/19/17 05:21 Labs: Laboratory Results - last 24 hr 05/19/17 05/19/17 05/19/17 00:12 16:41 17:18 POC Glucose 268 H 234 H Vancomycin Trough 15.0 05/20/17 05/20/17 06:06 10:22 POC Glucose 98 H 83 Vancomycin Trough Cultures: Cultures 05/13/17 16:55 Blood Culture - Final Peripheral Venipuncture No growth. 05/10/17 17:09 Anaerobic Culture - Final Right Foot No anaerobes were recovered. 05/10/17 17:09 Wound Culture - Final Right Foot Staphylococcus aureus - Impressions Impressions Echocardiogram 05/19/17 16:51 Impressions: LVEF 55%. Normal left ventricular diastolic function. Normal right ventricular structure and function. Cannot exclude possibility of a bicuspid aortic valve. Mildly thickened aortic valve leaflets. No pulmonary hypertension. Valvular vegetation is not visualized on this study. Left Ventricular Wall Motion: Rest Echo Findings All wall segments showed normal motion. Findings: Study Quality * Technically adequate exam. ECG Findings * Normal sinus rhythm. Left Ventricle * LVEF 55%. * Normal LV chamber size, wall thickness and function. * Normal left ventricular diastolic function. Right Ventricle * Normal right ventricular structure and function. Left Atrium * Normal left atrial size. Right Atrium * Normal right atrial size. Aortic Valve * No aortic regurgitation. * Cannot exclude possibility of a bicuspid aortic valve. * Mildly thickened aortic valve leaflets. * No aortic stenosis. Mitral Valve * No mitral regurgitation. * Normal mitral valve structure. * No mitral stenosis. Tricuspid Valve * Normal tricuspid valve structure. * No tricuspid stenosis. * Trace tricuspid regurgitation. * Estimated RA pressure is 3 mmHg. * Estimated RVSP is 10 mmHg. * No pulmonary hypertension. Pulmonic Valve * Pulmonic valve is not well visualized. * No pulmonic stenosis. * No pulmonic regurgitation. Pulmonary Artery * Pulmonary artery not well visualized. Aorta * Normal sized aortic root. * Ascending aorta is not well visualized. Pericardium * There is no pericardial effusion present. Interatrial Septum * No evidence of PFO by color Doppler. IVC * Normal IVC dimensions and inspiratory collapse. Exam - Constitutional Vitals: Temp Pulse Resp BP Pulse Ox 98.1 F 72 15 104/66 96 05/20/17 10:25 05/20/17 10:25 05/20/17 10:25 05/20/17 10:25 05/20/17 10:25 General appearance: average body habitus, cooperative, no acute distress - Head Head exam: Present: atraumatic, normal inspection, normocephalic - Eye Additional comments: Right eye cloudy and atrophied. Left eye pupil brisk and reactive to light. EOM intact. - ENT ENT exam: Present: mucous membranes moist - Neck Neck exam: Present: normal inspection - Respiratory Respiratory exam: Present: CTAB. Absent: rales, respiratory distress, rhonchi, wheezes - Cardiovascular Cardiovascular exam: Present: RRR, +S1, +S2 - GI/Abdominal GI/Abdominal exam: Present: normal bowel sounds, soft. Absent: distended, tenderness - Extremities Exam Extremities exam: Present: tenderness (right foot). Absent: joint swelling, pedal edema Additional comments: Right foot dressing C/D/I. - Neurological Exam Neurological exam: Present: alert, oriented X3, no focal deficits - Psychiatric Psychiatric exam: Present: normal affect, normal mood - Skin Skin exam: Present: dry, intact, normal color, warm - VTE Documentation of Mechanical Device: Graduated compression elastic hosiery Consult Discharge Plan - Plan Referrals: Carlton Alcaraz [Primary Care Provider] - Stefanie Abrams CNP [Advanced Practice Nurse] - 06/09/17 11:30 am - Attending Attestation I examined this patient and my medical decision-making was reviewed with the Resident Physician. I agree with the documented findings, disposition and treatment plan as described except to the extent set forth below.
[2017-05-20] MEDS ORDERED: Acetaminophen 325 MG TABLET PO PRN (15:10)
--- NOTE | 2017-05-20 17:58 | Internal Med Progress Note ---
Date of Encounter: 05/20/17 Time of Encounter: 17:55 - Assessment and plan (1) Osteomyelitis of toe of right foot Current Visit: Yes Status: Acute Assessment and plan: s/p amputation of Rt foot 3rd toe May need at least 2 weeks of IV abx Wound cx from 05/10/17 growing MSSA He did have blood cx 4/4 positive from 05/09/17 from [place] repeat blood cx no growth 05/13/17 ID consulted for abx management on Ancef reviewed 2 D Echo showed - no vegetations.. since he is high risk pt, ID recommended ANNIE Consulted card for ANNIE in AM NPO after mid night Dispo: Pt does need IV abx.. But he does not want to go home with IV abx due to his home situation, also he does not want to go ECF too. will talk to d/c planning team in AM about other options (2) Diabetic infection of right foot Current Visit: Yes Status: Acute Assessment and plan: cont wound care as per [employer] (3) Diabetes mellitus Current Visit: No Status: Acute Assessment and plan: on ISS + Levemir Qualifiers: Diabetes mellitus type: type 1 Diabetes mellitus complication status: with neurologic complications Diabetes mellitus complication detail: with polyneuropathy Qualified Code(s): E10.42 - Type 1 diabetes mellitus with diabetic polyneuropathy (4) Staphylococcus aureus bacteremia Current Visit: Yes Status: Acute Assessment and plan: Was notified on that blood cultures obtained at [place] (05/09) returned positive for Staph aureus Repeat blood cultures 05/13: no growth to date Switched to Ancef (5) Constipation Current Visit: Yes Status: Acute Assessment and plan: Resolved Cont him on bowel regimen + lactulose Qualifiers: Qualified Code(s): K59.00 - Constipation, unspecified - Subjective Interval history: Mr. Martinez is a 41 year old diabetic male who has had previous amputation of right foot digits 1 and 2 with the second digit being amputated this past summer. He says Wednesday evening he was getting up in the middle the night to go to the bathroom and he was barefoot and as he was going into the bathroom he kicked the bathroom door. He says he does not have much feeling in his foot however this hurt quite a bit. He went back to bed and woke up in the afternoon and says that his toe was turning dark and it was very swollen. His foor X ray showed displaced fx of 3rd toe middle phalanx and subluxed at the DIP joint. Pt was admitted here for Rt foot 3rd toe osteomyelitis and foot cellulites. He was started on empirical abx Zosyn and Vancomycin. He was evaluated by Dr. Simons , who did open amputation of Rt foot 3rd toe on 05/10/17 and secondary closure of wound on 05/13/17. His wound cx is growing MSSA. His pain is tolerable with current medications. Denied any CP / SOB. no fever. No events over night - Constitutional Vitals: Temp Pulse Resp BP Pulse Ox 98.3 F 65 16 102/66 94 05/20/17 16:16 05/20/17 16:16 05/20/17 16:16 05/20/17 16:16 05/20/17 16:16 General appearance: Present: A&O X 3, no acute distress - Head Head exam: Present: atraumatic, normal inspection - Neck Neck exam general surgery: Present: supple - Respiratory Respiratory exam: Present: decreased breath sounds. Absent: rales, respiratory distress, rhonchi, wheezes - Cardiovascular Cardiovascular exam: Present: RRR, +S1, +S2. Absent: systolic murmur, tachycardia - GI/Abdominal GI/Abdominal exam: Present: normal bowel sounds, soft. Absent: rebound, rigid, tenderness - Extremities Exam Extremities exam: Present: tenderness (Rt foot). Absent: calf tenderness, pedal edema Additional comments: Dressing placed over Rt foot - Neurological Exam Neurological exam: Present: alert, oriented X3 - Psychiatric Psychiatric exam: Present: depressed Internal Medicine: Result - Labs CBC & Chem 7: 05/19/17 05:21 05/19/17 05:21 - ABG Interpretation ABG results: PT/INR, D-dimer PT 11.3 Seconds (9.4-12.1) 05/10/17 03:55 - Impressions Impressions Echocardiogram 05/19/17 16:51 Impressions: LVEF 55%. Normal left ventricular diastolic function. Normal right ventricular structure and function. Cannot exclude possibility of a bicuspid aortic valve. Mildly thickened aortic valve leaflets. No pulmonary hypertension. Valvular vegetation is not visualized on this study. Left Ventricular Wall Motion: Rest Echo Findings All wall segments showed normal motion. Findings: Study Quality * Technically adequate exam. ECG Findings * Normal sinus rhythm. Left Ventricle * LVEF 55%. * Normal LV chamber size, wall thickness and function. * Normal left ventricular diastolic function. Right Ventricle * Normal right ventricular structure and function. Left Atrium * Normal left atrial size. Right Atrium * Normal right atrial size. Aortic Valve * No aortic regurgitation. * Cannot exclude possibility of a bicuspid aortic valve. * Mildly thickened aortic valve leaflets. * No aortic stenosis. Mitral Valve * No mitral regurgitation. * Normal mitral valve structure. * No mitral stenosis. Tricuspid Valve * Normal tricuspid valve structure. * No tricuspid stenosis. * Trace tricuspid regurgitation. * Estimated RA pressure is 3 mmHg. * Estimated RVSP is 10 mmHg. * No pulmonary hypertension. Pulmonic Valve * Pulmonic valve is not well visualized. * No pulmonic stenosis. * No pulmonic regurgitation. Pulmonary Artery * Pulmonary artery not well visualized. Aorta * Normal sized aortic root. * Ascending aorta is not well visualized. Pericardium * There is no pericardial effusion present. Interatrial Septum * No evidence of PFO by color Doppler. IVC * Normal IVC dimensions and inspiratory collapse. - VTE Documentation of Mechanical Device: Graduated compression elastic hosiery Consult Discharge Plan - Plan Referrals: Carlton Alcaraz [Primary Care Provider] - Stefanie Abrams CNP [Advanced Practice Nurse] - 06/09/17 11:30 am Prescriptions: CeFAZolin Pre 2,000 MG/100 ML [Ancef Premix 2,000 MG/100 ML] 2,000 mg IV Q8HR 10 Days bag
[2017-05-20] MEDS: Aspirin 81 MG TAB.CHEW PO SCH (22:03)
[2017-05-20] MEDS: Insulin DETEMIR 100 UNIT/ML X5UNITS SQ SCH (22:03)
[2017-05-21] MEDS: *HR* HYDROmorphone (PF) 1 MG/ML SYRINGE IVP PRN ×4 (02:17→16:27)
[2017-05-21 05:49] LABS: Basophils # 0.1 K/mcL (0.0-0.2); Basophils % 0.9 %; Eosinophils # 0.6 K/mcL (0.0-0.6); Eosinophils % 7.5 %; Hematocrit 45.4 % (37.5-50.1); Hemoglobin 14.9 g/dL (12.9-16.9); Immature Granulocytes % 0.3 % (0-4); Lymphocytes # 2.2 K/mcL (0.6-4.6); Lymphocytes % 28.3 %; Mean Corpuscular HGB Conc 32.8 g/dL (31.6-35.5); Mean Corpuscular Hemoglobin 29.6 pg (28.0-33.3); Mean Corpuscular Volume 90.3 fL (83.0-100.0); Mean Platelet Volume 9.1 fL (9.4-12.4); Monocytes # 0.4 K/mcL (0.0-1.3); Monocytes % 4.8 %; Neutrophils # 4.4 K/mcL (1.6-8.9); Platelet Count 341 K/mcL (140-400); Red Blood Count 5.03 M/mcL (4.19-5.50); Red Cell Distribution Width 13.1 % (11.5-14.5); Segmented Neutrophils % 58.2 %
[2017-05-21] MEDS: *HR* Heparin 5,000 UNIT/ML VIAL SQ SCH ×2 (05:57→17:09)
[2017-05-21 06:27] LABS: BUN/Creatinine Ratio 21 (6-26); Blood Urea Nitrogen 21 mg/dL (6-20); Calcium 9.4 mg/dL (8.6-10.3); Carbon Dioxide 31 mEq/L (23-29); Chloride 99 mEq/L (98-107); Glucose 304 mg/dL (70-105); Osmolality,Calculated 292 (280-300); Potassium 4.6 mEq/L (3.5-5.1); Sodium 134 mEq/L (136-145); eGFR For African Americans > 60 (> 60); eGFR For Non-African Americans > 60 (> 60)
[2017-05-21] MEDS: Insulin LISPRO 300 UNITS/3 ML VIAL SQ SCH ×7 (08:31→21:12)
[2017-05-21] MEDS: CeFAZolin Premix DUPLEX 2,000 MG/50 ML BAG IVPB SCH ×3 (08:32→22:54)
--- NOTE | 2017-05-21 09:52 | Internal Med Progress Note ---
Date of Encounter: 05/21/17 Time of Encounter: 09:50 - Assessment and plan (1) Osteomyelitis of toe of right foot Current Visit: Yes Status: Acute Assessment and plan: s/p amputation of Rt foot 3rd toe May need at least 2 weeks of IV abx Wound cx from 05/10/17 growing MSSA He did have blood cx 4/4 positive from 05/09/17 from [place] repeat blood cx no growth 05/13/17 ID consulted for abx management on Ancef reviewed 2 D Echo showed - no vegetations.. since he is high risk pt, ID recommended ANNIE Pt refused to go for ANNIE today..He wanted to get PICC line today go home with IV abx infusion Talked to SW/ JHON about this plan (2) Diabetic infection of right foot Current Visit: Yes Status: Acute Assessment and plan: cont wound care as per [employer] (3) Diabetes mellitus Current Visit: No Status: Acute Assessment and plan: on ISS + Levemir Qualifiers: Diabetes mellitus type: type 1 Diabetes mellitus complication status: with neurologic complications Diabetes mellitus complication detail: with polyneuropathy Qualified Code(s): E10.42 - Type 1 diabetes mellitus with diabetic polyneuropathy (4) Staphylococcus aureus bacteremia Current Visit: Yes Status: Acute Assessment and plan: Was notified on that blood cultures obtained at [place] (05/09) returned positive for Staph aureus Repeat blood cultures 05/13: no growth to date Switched to Ancef (5) Constipation Current Visit: Yes Status: Acute Assessment and plan: Resolved Cont him on bowel regimen + lactulose Qualifiers: Qualified Code(s): K59.00 - Constipation, unspecified - Subjective Interval history: Mr. Martinez is a 41 year old diabetic male who has had previous amputation of right foot digits 1 and 2 with the second digit being amputated this past summer. He says Wednesday evening he was getting up in the middle the night to go to the bathroom and he was barefoot and as he was going into the bathroom he kicked the bathroom door. He says he does not have much feeling in his foot however this hurt quite a bit. He went back to bed and woke up in the afternoon and says that his toe was turning dark and it was very swollen. His foor X ray showed displaced fx of 3rd toe middle phalanx and subluxed at the DIP joint. Pt was admitted here for Rt foot 3rd toe osteomyelitis and foot cellulites. He was started on empirical abx Zosyn and Vancomycin. He was evaluated by Dr. Simons , who did open amputation of Rt foot 3rd toe on 05/10/17 and secondary closure of wound on 05/13/17. His wound cx is growing MSSA. His pain is tolerable with current medications. Denied any CP / SOB. no fever. No events over night. He refused to go for ANNIE. Wanted to get PICC line and go home with IV abx infusion. - Constitutional Vitals: Temp Pulse Resp BP Pulse Ox 98.2 F 70 16 135/78 96 05/21/17 07:27 05/21/17 07:27 05/21/17 07:27 05/21/17 07:27 05/21/17 07:27 General appearance: Present: A&O X 3, no acute distress - Head Head exam: Present: atraumatic, normal inspection - Respiratory Respiratory exam: Present: decreased breath sounds. Absent: rales, respiratory distress, rhonchi, wheezes - Cardiovascular Cardiovascular exam: Present: RRR, +S1, +S2. Absent: systolic murmur, tachycardia - GI/Abdominal GI/Abdominal exam: Present: normal bowel sounds, soft. Absent: rebound, rigid, tenderness - Extremities Exam Extremities exam: Present: tenderness (Rt foot). Absent: calf tenderness, pedal edema Additional comments: Dressing on over rt foot. - Back Exam Back exam: Absent: CVA tenderness (L), CVA tenderness (R) - Neurological Exam Neurological exam: Present: alert, oriented X3 - Psychiatric Psychiatric exam: Present: depressed Internal Medicine: Result - Labs CBC & Chem 7: 05/21/17 05:13 05/21/17 05:13 Labs: Short CBC 05/21/17 Range/Units 05:13 WBC 7.6 (4.3-11.1) K/mcL Hgb 14.9 (12.9-16.9) g/dL Hct 45.4 (37.5-50.1) % Plt Count 341 (140-400) K/mcL Neutrophils # 4.4 (1.6-8.9) K/mcL BMP 05/21/17 05:13 Sodium 134 L Potassium 4.6 Chloride 99 Carbon Dioxide 31 H BUN 21 H Creatinine 1.02 Glucose 304 H Calcium 9.4 - ABG Interpretation ABG results: PT/INR, D-dimer PT 11.3 Seconds (9.4-12.1) 05/10/17 03:55 - Impressions Impressions Echocardiogram 05/19/17 16:51 Impressions: LVEF 55%. Normal left ventricular diastolic function. Normal right ventricular structure and function. Cannot exclude possibility of a bicuspid aortic valve. Mildly thickened aortic valve leaflets. No pulmonary hypertension. Valvular vegetation is not visualized on this study. Left Ventricular Wall Motion: Rest Echo Findings All wall segments showed normal motion. Findings: Study Quality * Technically adequate exam. ECG Findings * Normal sinus rhythm. Left Ventricle * LVEF 55%. * Normal LV chamber size, wall thickness and function. * Normal left ventricular diastolic function. Right Ventricle * Normal right ventricular structure and function. Left Atrium * Normal left atrial size. Right Atrium * Normal right atrial size. Aortic Valve * No aortic regurgitation. * Cannot exclude possibility of a bicuspid aortic valve. * Mildly thickened aortic valve leaflets. * No aortic stenosis. Mitral Valve * No mitral regurgitation. * Normal mitral valve structure. * No mitral stenosis. Tricuspid Valve * Normal tricuspid valve structure. * No tricuspid stenosis. * Trace tricuspid regurgitation. * Estimated RA pressure is 3 mmHg. * Estimated RVSP is 10 mmHg. * No pulmonary hypertension. Pulmonic Valve * Pulmonic valve is not well visualized. * No pulmonic stenosis. * No pulmonic regurgitation. Pulmonary Artery * Pulmonary artery not well visualized. Aorta * Normal sized aortic root. * Ascending aorta is not well visualized. Pericardium * There is no pericardial effusion present. Interatrial Septum * No evidence of PFO by color Doppler. IVC * Normal IVC dimensions and inspiratory collapse. - VTE Documentation of Mechanical Device: Graduated compression elastic hosiery Consult Discharge Plan - Plan Referrals: Carlton Alcaraz [Primary Care Provider] - Stefanie Abrams CNP [Advanced Practice Nurse] - 06/09/17 11:30 am Prescriptions: CeFAZolin Pre 2,000 MG/100 ML [Ancef Premix 2,000 MG/100 ML] 2,000 mg IV Q8HR 10 Days bag
--- NOTE | 2017-05-21 11:30 | Infectious Disease Progress No ---
Date of Encounter: 05/21/17 Time of Encounter: 11:28 - Assessment and Plan (1) Severe sepsis Current Visit: Yes Status: Acute The patient had three SIRS criteria plus lactic acidosis. Likely secondary to right foot gangrene and bacteremia. The patient has been afebrile. Leukocytosis and tachycardia have resolved. Blood cultures drawn 05/09/17 were positive 1/2 sets for MSSA. Repeat blood culture drawn 05/13/17 x 1 set is negative. (2) Staphylococcus aureus bacteremia Current Visit: Yes Status: Acute Causative organism MSSA. Source likely the right foot toe infection. Uncomplicated. Blood cultures drawn 05/09/17 were positive 1/2 sets for MSSA. Repeat blood culture drawn 05/13/17 x 1 set is NGTD. The patient has one major and one minor Modified Clark's Criteria. He has no endocarditis stigmata. Get a TTE. If negative, the patient will likely require a ANNIE. Continue cefazolin 2 grams IV Q8H. Duration of treatment depends on the clinical picture. The patient will require at least two weeks of IV antibiotics, but he tells me he is not willing to do IV antibiotics at home or go to an ECF. Monitor renal function and dose-adjust antibiotics. (3) Osteomyelitis of toe of right foot Current Visit: Yes Status: Acute Causative organism MSSA. Likely secondary to traumatic injury. X-ray of the right foot showed a displaced fracture of the third toe middle phalanx. No baseline inflammatory markers obtained prior to surgery. Podiatry consulted. Status post incision to bone cortex for OM and amputation of the right foot toe #3 05/10/[address] Simons. Toe pathology positive for OM. Operative note reviewed. Purulence noted in the toe. No changes of the metatarsal noted intra-op. Cultures positive for MSSA. Status post secondary closure 05/13/17. No indication of persistent infection noted. Continue antibiotics as above. Wound care and activity restrictions as per the podiatry team. (4) Cellulitis of right toe Current Visit: Yes Status: Acute Location: Right foot third toe. Causative organism likely MSSA. Per the medical record. Continue antibiotics as above. (5) Status post amputation of lesser toe of right foot Current Visit: Yes Status: Acute (6) Hyperglycemia due to type 1 diabetes mellitus Current Visit: Yes Status: Acute Blood sugars continue to run high. The patient needs aggressive glucose monitoring and control. (7) Hepatitis C Current Visit: No Status: Chronic States he is unsure how he got it. Denies IVDU. Has not been treated. Qualifiers: Viral hepatitis chronicity: chronic Hepatic coma status: without hepatic coma Qualified Code(s): B18.2 - Chronic viral hepatitis C (8) Diabetes mellitus with neuropathy Current Visit: No Status: Acute Type I. Diagnosed at . Uncontrolled. Hgb A1C 8.4% in November. Re-check A1C. Recommend aggressive glucose monitoring and control to promote wound healing and prevent re-infection. Management per the primary team. Qualifiers: Diabetes mellitus type: type 1 Qualified Code(s): E10.40 - Type 1 diabetes mellitus with diabetic neuropathy, unspecified - Subjective Interval history: Patient seen and examined. No acute events noted overnight. Patient reports continued pain in the right foot, but states is okay right now. Denies fevers, chills, or rigors. Denies chest pain, shortness of breath, or cough. Denies nausea, vomiting, or diarrhea. Denies abdominal pain, urinary complaints or appetite changes. Denies oral thrush or new skin lesions. Infect Dis PN-Objective Data - Labs CBC & Chem 7: 05/21/17 05:13 05/21/17 05:13 Labs: Laboratory Results - last 24 hr 05/20/17 05/20/17 05/21/17 16:10 21:36 01:30 WBC RBC Hgb Hct MCV MCH MCHC RDW Plt Count MPV Immature Gran % Seg Neutrophils % Lymphocytes % Monocytes % Eosinophils % Basophils % Neutrophils # Lymphocytes # Monocytes # Eosinophils # Basophils # Sodium Potassium Chloride Carbon Dioxide BUN Creatinine Est GFR ( Amer) Est GFR (Non-Af Amer) BUN/Creatinine Ratio Glucose POC Glucose 171 H 377 H 297 H Calculated Osmolality Calcium 05/21/17 05/21/17 05/21/17 05:13 05:13 05:40 WBC 7.6 RBC 5.03 Hgb 14.9 Hct 45.4 MCV 90.3 MCH 29.6 MCHC 32.8 RDW 13.1 Plt Count 341 MPV 9.1 L Immature Gran % 0.3 Seg Neutrophils % 58.2 Lymphocytes % 28.3 Monocytes % 4.8 Eosinophils % 7.5 Basophils % 0.9 Neutrophils # 4.4 Lymphocytes # 2.2 Monocytes # 0.4 Eosinophils # 0.6 Basophils # 0.1 Sodium 134 L Potassium 4.6 Chloride 99 Carbon Dioxide 31 H BUN 21 H Creatinine 1.02 Est GFR ( Amer) > 60 Est GFR (Non-Af Amer) > 60 BUN/Creatinine Ratio 21 Glucose 304 H POC Glucose 237 H Calculated Osmolality 292 Calcium 9.4 05/21/17 07:31 WBC RBC Hgb Hct MCV MCH MCHC RDW Plt Count MPV Immature Gran % Seg Neutrophils % Lymphocytes % Monocytes % Eosinophils % Basophils % Neutrophils # Lymphocytes # Monocytes # Eosinophils # Basophils # Sodium Potassium Chloride Carbon Dioxide BUN Creatinine Est GFR ( Amer) Est GFR (Non-Af Amer) BUN/Creatinine Ratio Glucose POC Glucose 264 H Calculated Osmolality Calcium Cultures: Cultures 05/13/17 16:55 Blood Culture - Final Peripheral Venipuncture No growth. 05/10/17 17:09 Anaerobic Culture - Final Right Foot No anaerobes were recovered. 05/10/17 17:09 Wound Culture - Final Right Foot Staphylococcus aureus Exam - Constitutional Vitals: Temp Pulse Resp BP Pulse Ox 98.4 F 93 16 107/71 96 05/21/17 10:26 05/21/17 10:26 05/21/17 10:26 05/21/17 10:26 05/21/17 10:26 General appearance: average body habitus, cooperative, no acute distress - Head Head exam: Present: atraumatic, normal inspection, normocephalic - Eye Additional comments: Right eye cloudy and atrophied. Left eye EOMI. Pupil brisk and reactive. - ENT ENT exam: Present: mucous membranes moist - Neck Neck exam: Present: normal inspection - Respiratory Respiratory exam: Present: CTAB. Absent: respiratory distress, rhonchi, wheezes - Cardiovascular Cardiovascular exam: Present: RRR, +S1, +S2 - GI/Abdominal GI/Abdominal exam: Present: normal bowel sounds, soft. Absent: distended, tenderness - Extremities Exam Extremities exam: Present: normal inspection, tenderness (right foot). Absent: joint swelling, pedal edema Additional comments: Right foot dressing C/D/I. - Neurological Exam Neurological exam: Present: alert, oriented X3, no focal deficits - Psychiatric Psychiatric exam: Present: normal affect, normal mood - Skin Skin exam: Present: dry, intact, normal color, warm - Additional findings Additional findings: Midline noted to the LUE with transparent dressing C/D/I. - VTE Documentation of Mechanical Device: Graduated compression elastic hosiery Consult Discharge Plan - Plan Additional Instructions: Need to f/u with Vacation Sales Advisor Dr. Simons in 1 week Need to f/u with ID Dr. Reyes in 1 week Need to go for CBC / BMP/ ESR / CRP q weekly x 2 Referrals: Carlton Alcaraz [Primary Care Provider] - Chetan Simons DPM [Partnered Physician] - Stefanie Abrams CNP [Advanced Practice Nurse] - 06/09/17 11:30 am Martin Reyes MD [Partnered Physician] - Prescriptions: OxyCODONE/APAP 7.5/325 [Percocet 7.5/325 MG] 1 each PO Q6HR PRN #15 tablet PRN Reason: Moderate Pain CeFAZolin Pre 2,000 MG/100 ML [Ancef Premix 2,000 MG/100 ML] 2,000 mg IV Q8HR 10 Days bag Insulin ASPART [NovoLOG] 0 - 20 units SQ TID PRN #1 vial PRN Reason: SLIDING SCALE Insulin Glargine [Lantus] 25 unit SQ 2200 #2 vial Polyethylene Glycol 3350 [MiraLAX] 17 gm PO DAILY PRN #30 powd.pack PRN Reason: Constipation - Attending Attestation I examined this patient and my medical decision-making was reviewed with the Resident Physician. I agree with the documented findings, disposition and treatment plan as described except to the extent set forth below.
[2017-05-21] MEDS: *HR* OxyCODONE/APAP 7.5/325 TABLET PO PRN (20:14)
[2017-05-21] MEDS: Insulin DETEMIR 100 UNIT/ML X5UNITS SQ SCH (21:16)
[2017-05-21] MEDS: Aspirin 81 MG TAB.CHEW PO SCH (21:16)
[2017-05-22] MEDS: *HR* OxyCODONE/APAP 7.5/325 TABLET PO PRN ×4 (01:36→22:37)
[2017-05-22] MEDS: *HR* Heparin 5,000 UNIT/ML VIAL SQ SCH ×2 (05:28→17:49)
[2017-05-22] MEDS: CeFAZolin Premix DUPLEX 2,000 MG/50 ML BAG IVPB SCH ×2 (07:45→17:49)
[2017-05-22] MEDS: Insulin LISPRO 300 UNITS/3 ML VIAL SQ SCH ×7 (07:45→20:49)
--- NOTE | 2017-05-22 15:08 | Internal Med Progress Note ---
Date of Encounter: 05/22/17 Time of Encounter: 09:00 - Assessment and plan (1) Osteomyelitis of toe of right foot Current Visit: Yes Status: Acute Assessment and plan: s/p amputation of Rt foot 3rd toe May need at least 2 weeks of IV abx Wound cx from 05/10/17 growing MSSA He did have blood cx 4/4 positive from 05/09/17 from [facility] repeat blood cx no growth 05/13/17 ID consulted for abx management on Ancef reviewed 2 D Echo showed - no vegetations.. since he is high risk pt, ID recommended ANNIE Pt refused to go for ANNIE today.. He got PICC line y/d But do not wanted to go home today He did mention that, he does not have any food at home, no heating at home.. He is in the process of fixing all of them, so do not wanted to go home till Wednesday. (2) Diabetic infection of right foot Current Visit: Yes Status: Acute Assessment and plan: cont wound care as per Clinical Rn (3) Diabetes mellitus Current Visit: No Status: Acute Assessment and plan: on ISS + Levemir Qualifiers: Diabetes mellitus type: type 1 Diabetes mellitus complication status: with neurologic complications Diabetes mellitus complication detail: with polyneuropathy Qualified Code(s): E10.42 - Type 1 diabetes mellitus with diabetic polyneuropathy (4) Staphylococcus aureus bacteremia Current Visit: Yes Status: Acute Assessment and plan: Was notified on that blood cultures obtained at [facility] (05/09) returned positive for Staph aureus Repeat blood cultures 05/13: no growth to date Switched to Ancef (5) Constipation Current Visit: Yes Status: Acute Assessment and plan: Resolved Cont him on bowel regimen + lactulose Qualifiers: Qualified Code(s): K59.00 - Constipation, unspecified - Subjective Interval history: Mr. Martinez is a 41 year old diabetic male who has had previous amputation of right foot digits 1 and 2 with the second digit being amputated this past summer. He says Wednesday evening he was getting up in the middle the night to go to the bathroom and he was barefoot and as he was going into the bathroom he kicked the bathroom door. He says he does not have much feeling in his foot however this hurt quite a bit. He went back to bed and woke up in the afternoon and says that his toe was turning dark and it was very swollen. His foor X ray showed displaced fx of 3rd toe middle phalanx and subluxed at the DIP joint. Pt was admitted here for Rt foot 3rd toe osteomyelitis and foot cellulites. He was started on empirical abx Zosyn and Vancomycin. He was evaluated by Dr. Siomns , who did open amputation of Rt foot 3rd toe on 05/10/17 and secondary closure of wound on 05/13/17. His wound cx is growing MSSA. His pain is tolerable with current medications. Denied any CP / SOB. no fever. No events over night. He refused to go for ANNIE. Had PICC line placed in y/d, getting IV abx through PICC line. He did mention that, he does not have any food at home, no heating at home.. He is in the process of fixing all of them, so do not wanted to go home till Wednesday. - Constitutional Vitals: Temp Pulse Resp BP Pulse Ox 97.7 F 69 15 109/71 95 05/22/17 11:32 05/22/17 11:32 05/22/17 11:32 05/22/17 11:32 05/22/17 11:32 General appearance: Present: A&O X 3, no acute distress - Head Head exam: Present: atraumatic, normal inspection - Neck Neck exam general surgery: Present: supple - Respiratory Respiratory exam: Present: decreased breath sounds. Absent: rales, respiratory distress, rhonchi, wheezes - Cardiovascular Cardiovascular exam: Present: rubs, +S2 - GI/Abdominal GI/Abdominal exam: Present: soft. Absent: rebound, rigid, tenderness - Extremities Exam Extremities exam: Present: tenderness (Rt foot). Absent: calf tenderness, pedal edema Additional comments: Pt do not let me open his dressing.. Dr. Simons did put the dressing last night and he wants to wait until Dr. Simons sees him again. - Back Exam Back exam: Absent: CVA tenderness (L), CVA tenderness (R) - Neurological Exam Neurological exam: Present: alert, oriented X3 Internal Medicine: Result - Labs CBC & Chem 7: 05/21/17 05:13 05/21/17 05:13 - ABG Interpretation ABG results: PT/INR, D-dimer PT 11.3 Seconds (9.4-12.1) 05/10/17 03:55 - VTE Documentation of Mechanical Device: Graduated compression elastic hosiery Consult Discharge Plan - Plan Referrals: Carlton Alcaraz [Primary Care Provider] - Stefanie Abrams CNP [Advanced Practice Nurse] - 06/09/17 11:30 am Prescriptions: CeFAZolin Pre 2,000 MG/100 ML [Ancef Premix 2,000 MG/100 ML] 2,000 mg IV Q8HR 10 Days bag
[2017-05-22] MEDS: Aspirin 81 MG TAB.CHEW PO SCH (20:34)
[2017-05-22] MEDS: Insulin DETEMIR 100 UNIT/ML X5UNITS SQ SCH (20:34)
[2017-05-23] MEDS: CeFAZolin Premix DUPLEX 2,000 MG/50 ML BAG IVPB SCH ×3 (00:43→15:35)
[2017-05-23] MEDS: *HR* OxyCODONE/APAP 7.5/325 TABLET PO PRN ×4 (04:57→21:23)
[2017-05-23] MEDS: *HR* Heparin 5,000 UNIT/ML VIAL SQ SCH ×2 (04:58→17:47)
[2017-05-23 06:22] LABS: Hemoglobin A1C 9.3 %
[2017-05-23] MEDS: Insulin LISPRO 300 UNITS/3 ML VIAL SQ SCH ×7 (08:52→19:58)
--- NOTE | 2017-05-23 15:45 | Internal Med Progress Note ---
Date of Encounter: 05/23/17 Time of Encounter: 14:45 - Assessment and plan (1) Osteomyelitis of toe of right foot Current Visit: Yes Status: Acute Assessment and plan: s/p amputation of Rt foot 3rd toe May need at least 2 weeks of IV abx Wound cx from 05/10/17 growing MSSA He did have blood cx 4/4 positive from 05/09/17 from [facility] repeat blood cx no growth 05/13/17 ID consulted for abx management on Ancef reviewed 2 D Echo showed - no vegetations.. since he is high risk pt, ID recommended ANNIE Pt refused to go for ANNIE.. PICC line placed in But do not wanted to go home today He did mention that, he does not have any food at home, no heating at home.. He is in the process of fixing all of them, so do not wanted to go home till Wednesday. (2) Diabetic infection of right foot Current Visit: Yes Status: Acute Assessment and plan: cont wound care as per Credit Authorizer (3) Diabetes mellitus Current Visit: No Status: Acute Assessment and plan: on ISS + Levemir Qualifiers: Diabetes mellitus type: type 1 Diabetes mellitus complication status: with neurologic complications Diabetes mellitus complication detail: with polyneuropathy Qualified Code(s): E10.42 - Type 1 diabetes mellitus with diabetic polyneuropathy (4) Staphylococcus aureus bacteremia Current Visit: Yes Status: Acute Assessment and plan: Was notified on that blood cultures obtained at [facility] (05/09) returned positive for Staph aureus Repeat blood cultures 05/13: no growth to date On IV Ancef (5) Constipation Current Visit: Yes Status: Acute Assessment and plan: Resolved Cont him on bowel regimen + lactulose Qualifiers: Qualified Code(s): K59.00 - Constipation, unspecified - Subjective Interval history: Mr. Martinez is a 41 year old diabetic male who has had previous amputation of right foot digits 1 and 2 with the second digit being amputated this past summer. He says Wednesday evening he was getting up in the middle the night to go to the bathroom and he was barefoot and as he was going into the bathroom he kicked the bathroom door. He says he does not have much feeling in his foot however this hurt quite a bit. He went back to bed and woke up in the afternoon and says that his toe was turning dark and it was very swollen. His foor X ray showed displaced fx of 3rd toe middle phalanx and subluxed at the DIP joint. Pt was admitted here for Rt foot 3rd toe osteomyelitis and foot cellulites. He was started on empirical abx Zosyn and Vancomycin. He was evaluated by Dr. Simons , who did open amputation of Rt foot 3rd toe on 05/10/17 and secondary closure of wound on 05/13/17. His wound cx is growing MSSA. His pain is tolerable with current medications. Denied any CP / SOB. no fever. No events over night. He refused to go for ANNIE. Had PICC line placed and getting IV abx through PICC line. He did mention that, he does not have any food at home, no heating at home.. He is in the process of fixing all of them, so do not wanted to go home till Wednesday. Denied any new complaints. No events over night. - Constitutional Vitals: Temp Pulse Resp BP Pulse Ox 98 F 61 16 104/66 94 05/23/17 15:06 05/23/17 15:06 05/23/17 15:06 05/23/17 15:06 05/23/17 15:06 General appearance: Present: A&O X 3, no acute distress - Head Head exam: Present: atraumatic, normal inspection - Neck Neck exam general surgery: Present: supple - Respiratory Respiratory exam: Present: decreased breath sounds. Absent: rales, respiratory distress, rhonchi, wheezes - Cardiovascular Cardiovascular exam: Present: RRR, +S1, +S2. Absent: tachycardia - GI/Abdominal GI/Abdominal exam: Present: normal bowel sounds, soft. Absent: rebound, rigid, tenderness - Extremities Exam Extremities exam: Absent: calf tenderness, pedal edema, tenderness Additional comments: Pt do not let me open his dressing.. He wants to wait until Dr. Simons do the dressing change - Back Exam Back exam: Absent: CVA tenderness (L), CVA tenderness (R) - Neurological Exam Neurological exam: Present: alert, oriented X3 Internal Medicine: Result - Labs CBC & Chem 7: 05/21/17 05:13 05/21/17 05:13 - ABG Interpretation ABG results: PT/INR, D-dimer PT 11.3 Seconds (9.4-12.1) 05/10/17 03:55 - VTE Documentation of Mechanical Device: Graduated compression elastic hosiery Consult Discharge Plan - Plan Referrals: Carlton Alcaraz [Primary Care Provider] - Stefanie Abrams CNP [Advanced Practice Nurse] - 06/09/17 11:30 am Prescriptions: CeFAZolin Pre 2,000 MG/100 ML [Ancef Premix 2,000 MG/100 ML] 2,000 mg IV Q8HR 10 Days bag
[2017-05-23] MEDS: Insulin DETEMIR 100 UNIT/ML X5UNITS SQ SCH (21:23)
[2017-05-23] MEDS: Aspirin 81 MG TAB.CHEW PO SCH (21:23)
[2017-05-24] MEDS: CeFAZolin Premix DUPLEX 2,000 MG/50 ML BAG IVPB SCH ×2 (00:03→09:46)
[2017-05-24] MEDS: Insulin LISPRO 300 UNITS/3 ML VIAL SQ SCH ×5 (00:46→12:59)
[2017-05-24] MEDS: *HR* OxyCODONE/APAP 7.5/325 TABLET PO PRN ×2 (05:24→09:49)
[2017-05-24] MEDS: *HR* Heparin 5,000 UNIT/ML VIAL SQ SCH (05:24)
[2017-05-24 10:34] VITALS: BP 106/64
--- NOTE | 2017-05-24 11:30 | Discharge Summary ---
Date of Encounter: 05/24/17 Time of Encounter: 10:00 - Discharge Diagnosis (1) Osteomyelitis of toe of right foot Priority: Primary Status: Acute (2) Diabetic infection of right foot Priority: Primary Status: Acute (3) Diabetes mellitus Priority: Secondary Status: Acute Qualifiers: Diabetes mellitus type: type 1 Diabetes mellitus complication status: with neurologic complications Diabetes mellitus complication detail: with polyneuropathy Qualified Code(s): E10.42 - Type 1 diabetes mellitus with diabetic polyneuropathy (4) Staphylococcus aureus bacteremia Priority: Secondary Status: Acute (5) Constipation Priority: Secondary Status: Acute Qualifiers: Qualified Code(s): K59.00 - Constipation, unspecified - Discharge Medications Prescriptions: OxyCODONE/APAP 7.5/325 [Percocet 7.5/325 MG] 1 each PO Q6HR PRN #15 tablet PRN Reason: Moderate Pain CeFAZolin Pre 2,000 MG/100 ML [Ancef Premix 2,000 MG/100 ML] 2,000 mg IV Q8HR 10 Days bag Insulin ASPART [NovoLOG] 0 - 20 units SQ TID PRN #1 vial PRN Reason: SLIDING SCALE Insulin Glargine [Lantus] 25 unit SQ 2200 #2 vial Polyethylene Glycol 3350 [MiraLAX] 17 gm PO DAILY PRN #30 powd.pack PRN Reason: Constipation Home Medications: Aspirin 81 mg PO DAILY 10/05/16 [History] Cholecalciferol (D-3) [Vitamin D] 5,000 unit PO DAILY 05/10/17 [History] CeFAZolin Pre 2,000 MG/100 ML [Ancef Premix 2,000 MG/100 ML] 2,000 mg IV Q8HR 10 Days bag 05/20/17 [Rx] Insulin ASPART [NovoLOG] 0 - 20 units SQ TID PRN #1 vial 05/24/17 [Rx] Insulin Glargine [Lantus] 25 unit SQ 2200 #2 vial 05/24/17 [Rx] OxyCODONE/APAP 7.5/325 [Percocet 7.5/325 MG] 1 each PO Q6HR PRN #15 tablet 05/24 [Rx] Polyethylene Glycol 3350 [MiraLAX] 17 gm PO DAILY PRN #30 powd.pack 05/24/17 [Rx ] Allergies/Adverse Reactions: 3 Allergy/AdvReac Type Severity Reaction Status Date / Time No Known Allergies Allergy Verified 05/10/17 13:48 Date of admission: 05/09/17 15:08 Primary care physician: Carlton Alcaraz Consults: 05/09/17 09:51 Consult to Physician [CONS] Routine Consulting Provider: Chetan Simons Reason for Consult: infected 3rd toe, right foot Call Completed: Yes 05/11/17 12:09 Consult to Nutrition [CONS] Routine Comment: Consulting Provider: NUTRITION Reason for Dietary Consult: Diet Education Other:: Poorly controlled type 1 diabetic - needs education Consult to Barge Master [CONS] Routine Reason for SW Consult: Patient will need SW to follow for needs of HHC at home- patient has very minimal vision and will need dressing changes and monitoring of calorie count/diabetic diet and insulin administration per nursing staff. Patient will also need set up with for DM management and PCP if patient is not following with one. 05/19/17 10:23 Consult to Infectious Diseases [CONS] Routine Consulting Provider: Infectious Disease Shannan Reason for Consult: Foot infection Time Notified: 10:23 Call Completed: Yes 05/21/17 09:23 Consult to Invasive Line Access Team [CONS] Routine Reason for Consult: home atb Line Type: Midline - Patient Status Disposition: Home Health Service Condition: Good Overall status at discharge: patient is back to baseline - Discharge Instructions Follow Up With: Carlton Alcaraz [Primary Care Provider] - Stefanie Abrams CNP [Advanced Practice Nurse] - 06/09/17 11:30 am Chetan Simons DPM [Partnered Physician] - Martin Reyes MD [Partnered Physician] - Additional Instructions: Need to f/u with Certified Adaptive Physical Educator Dr. Simons in 1 week Need to f/u with ID Dr. Reyes in 1 week Need to go for CBC / BMP/ ESR / CRP q weekly x 2 - Diet and Activity Activity: increase activity as tolerated Diet: diabetic diet, low salt diet Hospital course: Mr. Martinez is a 41 year old diabetic male who has had previous amputation of right foot digits 1 and 2 with the second digit being amputated this past summer. He says Wednesday evening he was getting up in the middle the night to go to the bathroom and he was barefoot and as he was going into the bathroom he kicked the bathroom door. He says he does not have much feeling in his foot however this hurt quite a bit. He went back to bed and woke up in the afternoon and says that his toe was turning dark and it was very swollen. His foor X ray showed displaced fx of 3rd toe middle phalanx and subluxed at the DIP joint. Pt was admitted here for Rt foot 3rd toe osteomyelitis and foot cellulites. He was started on empirical abx Zosyn and Vancomycin. He was evaluated by Dr. Simons , who did open amputation of Rt foot 3rd toe on 05/10/17 and secondary closure of wound on 05/13/17. His wound cx is growing MSSA. He did have blood cx 4/4 positive from 05/09/17 from [facility]. His repeat blood cx showed no growth . His 2 D Echo did not show any vegetations. However he refused to go for ANNIE. Had PICC line placed and getting IV abx through PICC line. Pt was seen by ID and suggested for 2 week IV Ancef since the negative blood cx. So sending him on 10 more days IV abx through PICC line. Recommend to f/u with Dr. Simons, and ID Dr. Reyes as an out pt. Pt refused to open the dressing by me today too. - Time Spent with Patient Total time spent providing and/or coordinating discharge services: - Constitutional Vitals: Temp Pulse Resp BP Pulse Ox 98.5 F 68 14 106/64 95 05/24/17 10:33 05/24/17 10:33 05/24/17 10:33 05/24/17 10:33 05/24/17 10:33 General appearance: Present: A&O X 3, no acute distress - Head Head exam: Present: atraumatic, normal inspection - Neck Neck exam general surgery: Present: supple - Respiratory Respiratory exam: Present: decreased breath sounds. Absent: rales, respiratory distress, rhonchi, wheezes - Cardiovascular Cardiovascular exam: Present: RRR, +S1, +S2. Absent: tachycardia - GI/Abdominal GI/Abdominal exam: Present: normal bowel sounds, soft. Absent: rebound, rigid, tenderness - Extremities Exam Extremities exam: Absent: calf tenderness, pedal edema, tenderness Additional comments: Dressing placed in over Rt foot - VTE Documentation of Mechanical Device: Graduated compression elastic hosiery
--- NOTE | 2017-05-24 11:40 | Physician Discharge Referral ---
Home Health/Hosp Referral Info Transfer to: Home Health Provider in Charge Post Discharge: PCP - Diagnosis (1) Osteomyelitis of toe of right foot Status: Acute (2) Diabetic infection of right foot Status: Acute (3) Diabetes mellitus Status: Acute (4) Staphylococcus aureus bacteremia Status: Acute (5) Constipation Status: Acute - Respiratory Orders Smoking Cessation: Smoking cessation has been advised. For more information, call the [employer] Quit Line at 5-566-DUWW-NOW. - Services Needed Following services are medically necessary services: Nursing - Transfer Medications Prescriptions: OxyCODONE/APAP 7.5/325 [Percocet 7.5/325 MG] 1 each PO Q6HR PRN #15 tablet PRN Reason: Moderate Pain CeFAZolin Pre 2,000 MG/100 ML [Ancef Premix 2,000 MG/100 ML] 2,000 mg IV Q8HR 10 Days bag Insulin ASPART [NovoLOG] 0 - 20 units SQ TID PRN #1 vial PRN Reason: SLIDING SCALE Insulin Glargine [Lantus] 25 unit SQ 2200 #2 vial Polyethylene Glycol 3350 [MiraLAX] 17 gm PO DAILY PRN #30 powd.pack PRN Reason: Constipation Home Medications: Aspirin 81 mg PO DAILY 10/05/16 [History] Cholecalciferol (D-3) [Vitamin D] 5,000 unit PO DAILY 05/10/17 [History] CeFAZolin Pre 2,000 MG/100 ML [Ancef Premix 2,000 MG/100 ML] 2,000 mg IV Q8HR 10 Days bag 05/20/17 [Rx] Insulin ASPART [NovoLOG] 0 - 20 units SQ TID PRN #1 vial 05/24/17 [Rx] Insulin Glargine [Lantus] 25 unit SQ 2200 #2 vial 05/24/17 [Rx] OxyCODONE/APAP 7.5/325 [Percocet 7.5/325 MG] 1 each PO Q6HR PRN #15 tablet 05/24 [Rx] Polyethylene Glycol 3350 [MiraLAX] 17 gm PO DAILY PRN #30 powd.pack 05/24/17 [Rx ] Allergies/Adverse Reactions: 3 Allergy/AdvReac Type Severity Reaction Status Date / Time No Known Allergies Allergy Verified 05/10/17 13:48 Certification: Further, I certify that my clinical findings support that this patient is homebound (i.e. absences from home require considerable and taxing effort and are for medical reasons or taoism services or infrequently or short duration when for other reasons) because: Homebound Reason: Patient requires assistance of a person or device to safely leave home Attestation: My signature below is to certify that this patient is under my care and that I, or nurse practitioner, or a physician's material assistant working with me, has a face-to -face encounter with this patient.
--- NOTE | 2017-05-24 12:26 | Infectious Disease Progress No ---
Date of Encounter: 05/24/17 Time of Encounter: 12:24 - Assessment and Plan (1) Severe sepsis Current Visit: Yes Status: Acute The patient had three SIRS criteria plus lactic acidosis. Likely secondary to right foot gangrene and bacteremia. The patient has been afebrile. Leukocytosis and tachycardia have resolved. Blood cultures drawn 05/09/17 were positive 1/2 sets for MSSA. Repeat blood culture drawn 05/13/17 x 1 set is negative. (2) Staphylococcus aureus bacteremia Current Visit: Yes Status: Acute Causative organism MSSA. Source likely the right foot toe infection. Uncomplicated. Blood cultures drawn 05/09/17 were positive 1/2 sets for MSSA. Repeat blood culture drawn 05/13/17 x 1 set is negative. The patient has one major and one minor Modified Clark's Criteria. He has no endocarditis stigmata. TTE negative for vegetations. The patient refused ANNIE. Continue cefazolin 2 grams IV Q8H. Duration of treatment depends on the clinical picture. The patient will require at least two weeks of IV antibiotics. He has agreed to do IV antibiotics at home. Monitor renal function and dose-adjust antibiotics. (3) Osteomyelitis of toe of right foot Current Visit: Yes Status: Acute Causative organism MSSA. Likely secondary to traumatic injury. X-ray of the right foot showed a displaced fracture of the third toe middle phalanx. No baseline inflammatory markers obtained prior to surgery. Podiatry consulted. Status post incision to bone cortex for OM and amputation of the right foot toe #3 05/10/[address] Simons. Toe pathology positive for OM. Operative note reviewed. Purulence noted in the toe. No changes of the metatarsal noted intra-op. Cultures positive for MSSA. Status post secondary closure 05/13/17. No indication of persistent infection noted. Continue antibiotics as above. Wound care and activity restrictions as per the podiatry team. Will need weekly CBC, BUN/Cr, ESR, CRP. Will need weekly IV care. Follow up with ID 06/01/17 at 0920. (4) Cellulitis of right toe Current Visit: Yes Status: Acute Location: Right foot third toe. Causative organism likely MSSA. Per the medical record. Continue antibiotics as above. (5) Status post amputation of lesser toe of right foot Current Visit: Yes Status: Acute (6) Hyperglycemia due to type 1 diabetes mellitus Current Visit: Yes Status: Acute Blood sugars continue to run high. The patient needs aggressive glucose monitoring and control. (7) Hepatitis C Current Visit: No Status: Chronic States he is unsure how he got it. Denies IVDU. Has not been treated. Qualifiers: Viral hepatitis chronicity: chronic Hepatic coma status: without hepatic coma Qualified Code(s): B18.2 - Chronic viral hepatitis C (8) Diabetes mellitus with neuropathy Current Visit: No Status: Acute Type I. Diagnosed at . Uncontrolled. Hgb A1C 9.3%. Recommend aggressive glucose monitoring and control to promote wound healing and prevent re-infection. Management per the primary team. Qualifiers: Diabetes mellitus type: type 1 Qualified Code(s): E10.40 - Type 1 diabetes mellitus with diabetic neuropathy, unspecified - Subjective Interval history: Patient seen and examined. No acute events noted overnight. Patient reports continued pain in the right foot with some radiation up into the leg. Denies fevers, chills, or rigors. Denies chest pain, shortness of breath, or cough. Denies nausea, vomiting, or diarrhea. Denies abdominal pain, urinary complaints or appetite changes. Denies oral thrush or new skin lesions. States he wants to go home. Infect Dis PN-Objective Data - Labs CBC & Chem 7: 05/21/17 05:13 05/21/17 05:13 Labs: Laboratory Results - last 24 hr 05/23/17 05/23/17 05/23/17 15:09 19:50 23:51 POC Glucose 323 H 171 H 305 H 05/24/17 05/24/17 05/24/17 04:07 06:49 10:53 POC Glucose 215 H 181 H 217 H Cultures: Cultures 05/13/17 16:55 Blood Culture - Final Peripheral Venipuncture No growth. 05/10/17 17:09 Anaerobic Culture - Final Right Foot No anaerobes were recovered. 05/10/17 17:09 Wound Culture - Final Right Foot Staphylococcus aureus Exam - Constitutional Vitals: Temp Pulse Resp BP Pulse Ox 98.5 F 68 14 106/64 95 05/24/17 10:33 05/24/17 10:33 05/24/17 10:33 05/24/17 10:33 05/24/17 10:33 General appearance: average body habitus, cooperative, no acute distress - Head Head exam: Present: atraumatic, normal inspection, normocephalic - Eye Additional comments: Right eyeball atrophy and cloudy. Left eye EOMI and pupil reactive. - ENT ENT exam: Present: mucous membranes moist - Neck Neck exam: Present: normal inspection - Respiratory Respiratory exam: Present: CTAB. Absent: rales, respiratory distress, rhonchi, wheezes - Cardiovascular Cardiovascular exam: Present: RRR, +S1, +S2 - GI/Abdominal GI/Abdominal exam: Present: normal bowel sounds, soft. Absent: distended, tenderness - Extremities Exam Extremities exam: Present: normal inspection. Absent: joint swelling, pedal edema, tenderness Additional comments: Right foot dressing C/D/I. Patient refused to let me remove the dressing to assess with site. - Neurological Exam Neurological exam: Present: alert, oriented X3, no focal deficits - Psychiatric Psychiatric exam: Present: normal affect, normal mood - Skin Skin exam: Present: dry, intact, normal color, warm - VTE Documentation of Mechanical Device: Graduated compression elastic hosiery Consult Discharge Plan - Plan Instructions: Diabetic Foot Care (DC), Sepsis (DC), Toe Amputation (DC) Additional Instructions: Need to f/u with Industrial Safety Engineer Dr. Simons in 1 week Need to f/u with ID Dr. Reyes in 1 week Need to go for CBC / BMP/ ESR / CRP q weekly x 2 Referrals: Carlton Alcaraz [Primary Care Provider] - Chetan Simons DPM [Partnered Physician] - Stefanie Abrams CNP [Advanced Practice Nurse] - 06/09/17 11:30 am Batool Barraza CNP [Advanced Practice Nurse] - 06/01/17 9:20 am Prescriptions: OxyCODONE/APAP 7.5/325 [Percocet 7.5/325 MG] 1 each PO Q6HR PRN #15 tablet PRN Reason: Moderate Pain CeFAZolin Pre 2,000 MG/100 ML [Ancef Premix 2,000 MG/100 ML] 2,000 mg IV Q8HR 10 Days bag Insulin ASPART [NovoLOG] 0 - 20 units SQ TID PRN #1 vial PRN Reason: SLIDING SCALE Insulin Glargine [Lantus] 25 unit SQ 2200 #2 vial Polyethylene Glycol 3350 [MiraLAX] 17 gm PO DAILY PRN #30 powd.pack PRN Reason: Constipation
== END 2017-05-24 14:50 | disposition home health service (06) | DRG 617 ==
LOC: 3ANU → SUATTDRO 15:08
PROVIDERS: ADMIT Internal Medicine; ATTEND Family Medicine